=== PATIENT | male | born 1940 | race Two or more races ===

== ENCOUNTER 2025-01-17 17:44 | Inpatient (IN) | payer OTHER, MEDICAID ==
[~2025-01-17] VITALS: Ht 172.7 cm; Wt 95.9 kg
--- NOTE | 2025-01-17 18:01 | ED.PDOC ---
History of Present Illness HPI Comments This is an 84 year-old male, with a PMHX of Dementia, presents to the ED with a chief complaint of weakness as of today. Per EMS, patients called reporting weakness of patient. Patient reports he is here after trying to "answer the phone, but finding out its a remote." Patient claims he was discharged from [facility] week ago. Patient has no further complaints at this time and otherwise denies further associated symptoms of syncope, LOC, seizure, migraine, dizziness, chest pain, or N/V. Chief Complaint: Weakness Time Seen by MD: 17:50 Reviewed Notes: Electronic [employer] Camera Person Notes, Medications, Allergies Allergies: Coded Allergies: NO KNOWN ALLERGIES (Unverified , 01/17/25) Information Source: Patient, Emergency Med Personnel Mode of Arrival: EMS Severity: Moderate Timing: Hours Duration: Since onset Associated signs and symptoms Weakness Past Medical History PAST MEDICAL HISTORY: Dementia, HTN Past Medical History (Other): Pacemaker Surgical History (Other): Back and Knee Family History Family History: Reviewed,noncontributory to illness, No family hx of DM, No family hx of Heart magy, No family hx of HTN, No family hx ofKidney magy, No family hx of Liver magy, No family hx of Lung magy, No family hx of Stroke, Family hx of Cancer Social History Smoker: Non-Smoker Alcohol: Denies ETOH Use Drugs: Denies Drug Use Lives In: Home Constitutional: reports: weakness; denies: chills, diaphoresis, fatigue, fever, malaise, sweats, others EENTM: denies: blurred vision, double vision, ear bleeding, ear discharge, ear drainage, ear pain, ear ringing, eye pain, eye redness, hearing loss, mouth fela n, mouth swelling, nasal discharge, nose bleeding, nose congestion, nose pain, photophobia, tearing, throat pain, throat swelling, voice changes, others Respiratory: denies: cough, hemoptysis, orthopnea, SOB at rest, shortness of breath, SOB with excertion, stridor, wheezing, others Cardiovascular: denies: chest pain, dizzy spells, diaphoresis, Dyspnea on exertion, edema, irregular heart beat, left arm pain, lightheadedness, palpitations, PND, syncope, others Gastrointestinal: denies: abdomen distended, abdominal pain, blood streaked bowels, constipated, diarrhea, dysphagia, difficulty swallowing, hematemesis, melena, nausea, poor appetite, poor fluid intake, rectal bleeding, rectal pain, vomiting, others Genitourinary: denies: burning, dysuria, flank pain, frequency, hematuria, incontinence, penile discharge, penile sore, pain, testicle pain, testicle swelling, urgency, others Neurological: denies: dizziness, fainting, headache, left sided numbness, left sided weakness, numbness, paresthesia, pre-existing deficit, right sided numbness, right sided weakness, seizure, speech problems, tingling, tremors, weakness, others Musculoskeletal: denies: back pain, gout, joint pain, joint swelling, muscle pain, muscle stiffness, neck pain, others Integumetry: denies: bruises, change in color, change in hair/nails, dryness, laceration, lesions, lumps, rash, wounds, others Allergic/Immunocompromised: denies: Difficulty Healing, Frequent Infections, Hives, Itching, others Hematologic/Lymphatic: denies: anemia, blood clots, easy bleeding, easy bruising, swollen glands, others Endocrine: denies: excessive hunger, excessive sweating, excessive thirst, excessive urination, flushing, intolerance to cold, intolerance to heat, unexplained weight gain, unexplained weight loss, others Psychiatric: denies: anxiety, bipolar disorder, depression, hopeless, panic disorder, schizophrenia, sleepless, suicidal, others All Other Systems: Reviewed and Negative Physical Exam General Appearance: Moderate Distress HEENT: Pale Conjuntivae (L), Pale Conjuntivae (R), Pharynx Normal, TMs Normal Neck: Full Range of Motion, Non-Tender, Normal, Normal Inspection Respiratory: Chest Non-Tender, Lungs Clear, No Accessory Muscle Use, No Respiratory Distress, Normal Breath Sounds Cardiovascular: No Edema, No JVD, No Murmur, No Gallop, Normal Peripheral Pulses, Regular Rate/Rhythm Breast Exam: Deferred Gastrointestinal: No Organomegaly, Non Tender, No Pulsatile Mass, Normal Bowel Sounds, Soft Genitalia: Deferred Pelvic: Deferred Rectal: Deferred Extremities: No calf tenderness, Normal capillary refill, No pedal edema Musculoskeletal : Apperance: Normal Neurologic: senior credit officer II-XII nml as Tested, Motor Weakness, Normal Affect, No Sensory Deficits, Other (The patient is able to answer questions but he is somewhat confused) Cerebellar Function: Unable to Test Reflexes: Normal Skin: Dry, Pallor, Warm Lymphatic: No Adenopathy Was a procedure done? Was a procedure done?: No Differential Dx Considerations may include: Generalized weakness, electrolyte imbalance, dehydration, UTI X-Ray, Labs, Meds, VS Vital Signs Date Time Temp Pulse Resp B/P (MAP) Pulse Ox O2 Delivery O2 Flow Rate FiO2 01/17/25 18:35 77 17 94 Nasal Cannula* 2 28 01/17/25 18:02 98.5 95 22 114/72 95 98.5 01/17/25 17:50 61 Lab Test 01/17/25 18:07 Range/Units White Blood Count 7.5 4.4-10.8 10^3/uL Red Blood Count 3.47 L 4.5-5.90 10^6/uL Hemoglobin 11.2 L 13.5-17.5 g/dL Hematocrit 33.8 L 41.0-53.0 % Mean Corpuscular Volume 97.4 80.0-100.0 fL Mean Corpuscular Hemoglobin 32.2 H 28.0-32.0 pg Mean Corpuscular Hemoglobin Concent 33.1 32.0-36.0 g/dL Red Cell Distribution Width 14.3 11.8-14.3 % Platelet Count 170 140-450 10^3/uL Mean Platelet Volume 8.7 6.9-10.8 fL Neutrophils (%) (Auto) 52.0 37.0-80.0 % Lymphocytes (%) (Auto) 25.4 10.0-50.0 % Monocytes (%) (Auto) 11.1 0.0-12.0 % Eosinophils (%) (Auto) 11.0 H 0.0-7.0 % Basophils (%) (Auto) 0.5 0.0-2.0 % Neutrophils # (Auto) 3.9 1.6-8.6 10 ^3/uL Lymphocytes # (Auto) 1.9 0.4-5.4 10 ^3/uL Monocytes # (Auto) 0.8 0-1.3 10 ^3/uL Eosinophils # (Auto) 0.8 0-0.8 10 ^3/uL Basophils # (Auto) 0 0-0.2 10 ^3/uL Nucleated Red Blood Cells 0.1 % Sodium Level 142 136-145 mmol/L Potassium Level 4.6 3.5-5.1 mmol/L Chloride Level 104 98-107 mmol/L Carbon Dioxide Level 30 20-31 mmol/L Anion Gap 8 5-15 Blood Urea Nitrogen 36 H 9-23 mg/dL Creatinine 4.54 H 0.700-1.30 mg/dL Glomerular Filtration Rate Calc 12 >90 mL/min BUN/Creatinine Ratio 7.9 L 10.0-20.0 Serum Glucose 114 H 74-106 mg/dL Lactic Acid Level 1.4 0.4-2.0 mmol/L Calcium Level 9.2 8.7-10.4 mg/dL Troponin I High Sensitivity 8 </=54 ng/L Current Medications Medications (Trade) Dose Ordered Sig/Zeke Route Start Time Stop Time Status Last Admin Sodium Chloride 500 ml @ 500 mls/hr Q1H ONCE IVB 01/17/25 18:00 01/17/25 18:59 DC 01/17/25 18:51 CAT scan of the head is negative The chest x-ray shows: Findings/Impression: Frontal chest radiograph demonstrates no acute osseous or superficial soft tissue abnormalities. Tunneled right-sided HD catheter terminates near the superior cavoatrial junction. Left chest wall dual-chamber pacemaker. The trachea is midline. The cardiac silhouette and mediastinum are within normal limits. Small right pleural effusion with compressive atelectasis. A superimposed infectious process is not excluded. MSK No pneumothorax. The patient's CBC shows anemia with a hemoglobin of 11.2 and hematocrit of 33.8 The BUN is 36 and the creatinine is 4.54 The patient was bolused with normal saline at 500 cc bolus The patient is being admitted at this time. Images Reviewed?: Images reviewed and evaluated by me Time of 1ST Reevaluation: 18:31 Reevaluation 1ST: Unchanged Patient Education/Counseling: Diagnosis, Treatment, Prognosis Family Education/Counseling: No Family Present SEPSIS Sepsis Screen Physician Orders Urinalysis (01/17/25 17:51) Chest Portable (01/17/25 17:51) Head Without Contrast (01/17/25 17:51) Solid Die Cutter (01/17/25 17:51) Pulse Oximetry (01/17/25 17:51) Blood Pressure (01/17/25 17:51) Heplock Iv (01/17/25 17:51) Blood Culture (01/17/25 17:51) Electrocardigram (01/17/25 17:51) Vital Signs Date Time Temp Pulse Resp B/P (MAP) Pulse Ox O2 Delivery O2 Flow Rate FiO2 01/17/25 18:35 77 17 94 Nasal Cannula* 2 28 01/17/25 18:02 98.5 95 22 114/72 95 98.5 01/17/25 17:50 61 Laboratory Tests Test 01/17/25 18:07 Lactic Acid Level 1.4 mmol/L (0.4-2.0) White Blood Count 7.5 10^3/uL (4.4-10.8) Medications Medications Dose Ordered Sig/Zeke Route Start Time Stop Time Status Last Admin Dose Admin Sodium Chloride 500 ml @ 500 mls/hr Q1H ONCE IVB 01/17/25 18:00 01/17/25 18:59 DC 01/17/25 18:51 Departure 1 Departure Time of Disposition: 19:47 Impression: Primary Impression: Generalized weakness Additional Impressions: UTI (urinary tract infection) Qualified Codes: N30.00 - Acute cystitis without hematuria Autonomic dysfunction Dehydration Disposition: ADMITTED INPATIENT Admit to: Tele Condition: Fair Critical Care Note Critical Care Time?: Yes (45 min-critical care time only) Stability Stability form required: Yes Unstable for transfer: Telemetry monitoring (Telemetry monitoring required), ED Physician Assesment (Clinical assesment) Heart Score Heart Score: Heart Score Response (Comments) Value History N/A 0 EKG N/A 0 Age N/A 0 Risk Factors N/A 0 Troponin N/A 0 Total 0 I personally scribed for RAYNA SUTTON MD ([email or web address]) on 01/17/25 at 18:01. Electronically submitted by Jing Pabon ([employer]). I personally scribed for RAYNA SUTTON MD ([email or web address]) on 01/17/25 at 18:03. Electronically submitted by Jing Pabon ([employer]). I personally scribed for RAYNA SUTTON MD ([email or web address]) on 01/17/25 at 18:05. Electronically submitted by Jing Pabon ([employer]). RAYNA SUTTON MD Jan 17, 2025 18:01
[2025-01-17 18:24] LABS: Hematocrit 33.8 % (41.0-53.0); Hemoglobin 11.2 g/dL (13.5-17.5); Mean Corpuscular Hemoglobin 32.2 pg (28.0-32.0); Mean Corpuscular Volume 97.4 fL (80.0-100.0); Nucleated Red Blood Cells % 0.1 %
[2025-01-17 18:31] LABS: Chloride 104 mmol/L (98-107); Potassium 4.6 mmol/L (3.5-5.1); Sodium 142 mmol/L (136-145)
[2025-01-17 18:32] LABS: Anion Gap 8 (5-15); Calcium 9.2 mg/dL (8.7-10.4); Carbon Dioxide 30 mmol/L (20-31)
[2025-01-17 18:35] VITALS: PULSE 77; RESP 17; O2SAT 94
[2025-01-17 18:37] LABS: BUN/Creatinine Ratio 7.9 (10.0-20.0)
[2025-01-17 18:44] LABS: Blood Urea Nitrogen 36 mg/dL (9-23); Glucose 114 mg/dL (74-106)
[2025-01-17] MEDS: SODIUM CHLORIDE 0.9% 500 ML IVB ONE (18:51)
--- NOTE | 2025-01-17 19:33 | DVH ---
EXAM: XY CHEST PORTABLE TECHNIQUE: Single frontal chest radiograph CLINICAL HISTORY: aloc COMPARISON: None Findings/Impression: Frontal chest radiograph demonstrates no acute osseous or superficial soft tissue abnormalities. Tunneled right-sided HD catheter terminates near the superior cavoatrial junction. Left chest wall du al-chamber pacemaker. The trachea is midline. The cardiac silhouette and mediastinum are within normal limits. Small right pleural effusion with compressive atelectasis. A superimposed infectious process is not e xcluded. MSK No pneumothorax.
--- NOTE | 2025-01-17 19:36 | DVH ---
CT HEAD WITHOUT CONTRAST INDICATION: aloc EXAM DATE: 01/17/2025 07:04 PM COMPARISON: None RADIATION DOSE: CTDIvol: 58.8 mGy, DLP: 1059.81 mGy*cm PROCEDURE: CT scans of the head were obtained from the vertex to the skull base. Sagittal and coronal reconstructions were provided. All CT scans at this medical facility are performed using dose modulation techniques as appropriate t o a performed exam including the following: Automated exposure control was utilized; adjustment of th e MA and/or KV according to patient size; and use of iterative reconstruction technique. FINDINGS: Evaluation is degraded by motion and streak artifact. No acute territorial infarct, intracranial hemorrhage, or mass effect. There are global involutional changes with compensatory prominence of the ventricles and sulci. Patchy periventricular and subcorti hugo white matter hypoattenuation is nonspecific but may be related to small vessel ischemic disease. 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 Mucosal thickening along the floor of the right maxillary antrum. The osseous structures are unrema rkable. IMPRESSION: 1. Artifact degraded evaluation without definite evidence for acute intracranial abnormality. 2. Age-related involutional changes. Chronic microvascular changes. 3. If clinical symptoms persist, MRI may be beneficial in further evaluation.
[2025-01-17] MEDS: cefTRIAXone 1GM/50ML D5W 50 ML IV ONE (20:53)
[2025-01-17 23:21] VITALS: PULSE 60; RESP 20; O2SAT 100
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
[2025-01-18 00:23] VITALS: PULSE 82; RESP 16; O2SAT 98
[2025-01-18 00:30] LABS: COVID19 ANTIGEN SOFIA FIA NEGATIVE (NEGATIVE)
[2025-01-18] MEDS: SODIUM CHLORIDE 0.9% 500 ML IV ONE (01:56)
[2025-01-18] MEDS: PANTOPRAZOLE 40 MG TAB PO SCH (05:24)
[2025-01-18 06:31] LABS: Hematocrit 33.9 % (41.0-53.0); Hemoglobin 11.3 g/dL (13.5-17.5); Mean Corpuscular Hemoglobin 33.5 pg (28.0-32.0); Mean Corpuscular Volume 100.3 fL (80.0-100.0); Nucleated Red Blood Cells % 0.3 %
[2025-01-18 06:48] LABS: Albumin 4.0 g/dL (3.2-4.8); Alkaline Phosphatase 111 U/L (46-116); Anion Gap 10 (5-15); BUN/Creatinine Ratio 7.4 (10.0-20.0); Calcium 9.4 mg/dL (8.7-10.4); Carbon Dioxide 27 mmol/L (20-31); Chloride 105 mmol/L (98-107); Glucose 90 mg/dL (74-106); Potassium 4.2 mmol/L (3.5-5.1); Sodium 142 mmol/L (136-145); Total Protein 6.3 g/dL (5.7-8.2)
[2025-01-18 06:52] LABS: Alanine Aminotransferase < 9 U/L (7-40); Bilirubin, Total 0.2 mg/dL (0.2-1.0); Blood Urea Nitrogen 35 mg/dL (9-23)
[2025-01-18 08:00] VITALS: PULSE 59; RESP 17; O2SAT 100
--- NOTE | 2025-01-18 09:06 | DVHPNRES ---
Progress Note Date Seen: Jan 18, 2025 Resident Creating Document: PRESLEY DOZIER RESIDENT Has the PT tested + for MRSA If YES, has PT been informed?: No Medical Necessity Reason Pt with a Central, PICC or Fol: No Subjective Patient reports: No new complaints Changes from previous H/P or p: No Changes Objective vital signs Vital Sign Date Time Temp Pulse Resp B/P (MAP) Pulse Ox O2 Delivery O2 Flow Rate FiO2 01/18/25 08:00 97.7 59 17 120/56 (77) 100 97.7 01/17/25 23:21 Nasal Cannula* 2 28 Total Intake and Output 01/17/25 01/17/25 01/18/25 15:00 23:00 07:00 Intake Total 550 ml Balance 550 ml medications Current Medications Medications Dose Ordered Sig/Zeke Route Start Time Stop Time Status Last Admin Dose Admin Pantoprazole Sodium 40 mg DAILY@0600 PO 01/18/25 06:00 01/18/25 05:24 40 MG Ceftriaxone Sodium 50 ml @ 100 mls/hr DAILY@2100 IV 01/18/25 21:00 Examination General Appearance: Alert, Cooperative, mild distress HEENT: Atraumatic, PERRLA, Other (dry mucous) Respiratory: Clear to auscultation, Normal air movement, Other (Oxigen 2L for nasal cannula ) Cardiovascular: Regular rate, Normal S1, Normal S2, No murmurs Abdominal: Normal bowel sounds, Soft, No tenderness, No hepatospenomegaly, No masses Extremities: No clubbing, No cyanosis, No edema, Normal pulses, Other (Bilateral leg pitting edema) Skin: No rashes, No breakdown, No significant lesion Neuro: Normal speech, Strength at 5/5 X4 ext, Normal tone, Sensation intact, Other (Alert, oriented and person, placed but no time, cofused, Bilateral hand tremor. ) Psych/Mental Status: Mood NL, Other (Normal mood.) laboratory and microbiology Laboratory Tests 01/18/25 05:20 Test 01/18/25 05:20 Range/Units Serum Glucose 90 74-106 mg/dL Labs and/or images reviewed: Labs reviewed by me, Image(s) reviewed by me Problem List/Assessment/Plan Problem List/Assessment/Plan Mr. Josefina Neff is an 84-year-old male with a complex medical history including dementia, hypertension, bilateral total knee replacements, a pacemaker, ESRD on dialysis (Tuesdays, , Saturdays), and Parkinsons disease. He presented to the emergency department with sudden-onset weakness and confusion of unclear duration, reportedly found in this state by his client services director Eve Bah ([phone]). He was recently discharged from [facility] after a week-long admission for fluid retention. He denies any recent trauma, loss of consciousness, chest pain, shortness of breath, fever, or other systemic symptoms. Initial labs revealed a BUN/creatinine ratio of 7.9 and a creatinine level of 4.74, while a CT scan was unremarkable. He lives alone and claims to have a client services director, though this could not be verified. He has no history of alcohol or drug use and quit smoking over a decade ago after previously smoking three packs per day. PCP: Hernan #Possible Metabolic vs Toxic encephalopathy: uropathic #Ruled out CVA clinically ct -ve likely #Aspiration Pneumonia gram +ve / -ve on iv abx #R/O UTI: UA contaminated on ceftriaxone #ESRD on dialysis still has urine output: missed dialysis x2 TTS with Dr. Young's group #Mild to moderate hypothermia: IV fluids (careful water replenishment due to ESRD) HD with HD catheter #Essential Hypertension target BP 140/90 as per ACC/AHA guidelines, hold meds as HD pending. #Sick sinus disease/conduction disorder on dual lead pacemaker on tele. #Parkinsonism: signs and symptoms present with tremor and rigidity confused and aspiration prone #Constipation as needed laxatives #Vitamin D deficiency: hold for now #Hypothyroidism: start home meds when possible #BPH: restart home meds when tolerating oral diet more awake #Dyslipidemia: statin to start #osteoarthritis: as needed local lidocaine #Right ophthalmology since 6 months of age. #Possible sleep apnea, intermittent desaturation Discussed with Dr. Carter. Goals of care discussed with team and caregiver over phone for 34 min. Remains in hospital pending HD. Plan discussed with: Patient Date of Service: Jan 18, 2025 Billing Provider: ARMIN CARTER MD Common Visit Codes: [id number] INP/OBS CARE(HIGH) PRESLEY DOZIER RESIDENT Jan 18, 2025 09:06 ARMIN CARTER MD Jan 22, 2025 08:44
[2025-01-18] MEDS: AZITHROMYCIN 500MG/ 250ML 250 ML IV SCH (10:06)
[2025-01-18 17:27] LABS: Urine Protein, UAD TRACE (Negative)
[2025-01-18 19:27] VITALS: PULSE 79; RESP 15; O2SAT 97
[2025-01-18] MEDS: cefTRIAXone 1GM/50ML D5W 50 ML IV SCH (21:04)
--- NOTE | 2025-01-18 21:36 | DVHINCON2 ---
Date of service: Jan 18, 2025 Reason for Consultation esrd History of Present Illness 84 years old male with past medical history of dementia hypertension bilateral total knee replacement, ESRD on dialysis, Parkinson's disease presented with chief complaints of confusion and sudden onset weakness Patient does not know exactly when last dialysis was Seen and examined in emergency room Past Medical History per hpi Allergies: Coded Allergies: NO KNOWN ALLERGIES (Unverified , 01/17/25) Current Medications Current Medications Medications (Trade) Dose Ordered Sig/Zeke Route PRN Reason Start Time Stop Time Status Last Admin Pantoprazole Sodium (Protonix Tablet) 40 mg DAILY@0600 PO 01/18/25 06:00 01/18/25 05:24 Ceftriaxone Sodium 50 ml @ 100 mls/hr DAILY@2100 IV 01/18/25 21:00 01/18/25 21:04 Azithromycin 250 ml @ 125 mls/hr DAILY IV 01/18/25 10:00 01/18/25 10:06 Review of Systems per hpi H&P Exam Vital Signs/I&O Vital Sign Date Time Temp Pulse Resp B/P (MAP) Pulse Ox O2 Delivery O2 Flow Rate FiO2 01/18/25 19:27 79 15 97 Nasal Cannula* 2 28 01/18/25 19:27 97.7 119/75 (90) 97.7 Intake and Output 01/17/25 01/18/25 19:00 07:00 Intake Total 550 ml Balance 550 ml Intake IV Total 550 ml Physical Exam General-not in any distress HEENT-normocephalic, Respiratory-fair air entry bilateral, [id number] heard, no murmurs appreciated Abdominal-soft, nontender, nondistended Musculoskeletal-no pedal edema Genitourinary-deferred Neuro-awake alert oriented tremors ++ Psychiatric-not agitated, cooperative, Labs/Diagnostic Data Labs/Diagnostic Data Laboratory Tests Test 01/18/25 16:00 01/18/25 10:30 01/18/25 05:20 01/17/25 23:40 Range/Units Urine Color Light-yellow Yellow Urine Clarity Clear Clear Urine pH 6.0 5.0-9.0 Urine Specific [place] 1.012 1.001-1.035 Urine Protein Trace H Negative Urine Ketones Negative Negative Urine Blood Negative Negative /uL Urine Nitrite Negative Negative Urine Bilirubin Negative Negative Urine Urobilinogen Normal Negative mg/dL Urine Leukocyte Esterase Trace Negative /uL Urine RBC 1 0 - 3 /hpf Urine Microscopic WBC 7 H 0-3 /HPF Urine Squamous Epithelial Cells Few <5 /hpf Urine Bacteria Few H None Seen /hpf Urine Glucose Normal Normal mg/dL Vitamin B12 Level 379 211-911 pg/mL Folic Acid 9.15 >5.38 ng/mL White Blood Count 7.3 4.4-10.8 10^3/uL Red Blood Count 3.38 L 4.5-5.90 10^6/uL Hemoglobin 11.3 L 13.5-17.5 g/dL Hematocrit 33.9 L 41.0-53.0 % Mean Corpuscular Volume 100.3 H 80.0-100.0 fL Mean Corpuscular Hemoglobin 33.5 H 28.0-32.0 pg Mean Corpuscular Hemoglobin Concent 33.4 32.0-36.0 g/dL Red Cell Distribution Width 14.1 11.8-14.3 % Platelet Count 160 140-450 10^3/uL Mean Platelet Volume 8.8 6.9-10.8 fL Neutrophils (%) (Auto) 49.6 37.0-80.0 % Lymphocytes (%) (Auto) 29.3 10.0-50.0 % Monocytes (%) (Auto) 10.5 0.0-12.0 % Eosinophils (%) (Auto) 10.0 H 0.0-7.0 % Basophils (%) (Auto) 0.6 0.0-2.0 % Neutrophils # (Auto) 3.6 1.6-8.6 10 ^3/uL Lymphocytes # (Auto) 2.1 0.4-5.4 10 ^3/uL Monocytes # (Auto) 0.8 0-1.3 10 ^3/uL Eosinophils # (Auto) 0.7 0-0.8 10 ^3/uL Basophils # (Auto) 0 0-0.2 10 ^3/uL Nucleated Red Blood Cells 0.3 % Sodium Level 142 136-145 mmol/L Potassium Level 4.2 3.5-5.1 mmol/L Chloride Level 105 98-107 mmol/L Carbon Dioxide Level 27 20-31 mmol/L Anion Gap 10 5-15 Blood Urea Nitrogen 35 H 9-23 mg/dL Creatinine 4.75 H 0.700-1.30 mg/dL Glomerular Filtration Rate Calc 11 >90 mL/min BUN/Creatinine Ratio 7.4 L 10.0-20.0 Serum Glucose 90 74-106 mg/dL Calcium Level 9.4 8.7-10.4 mg/dL Total Bilirubin 0.2 0.2-1.0 mg/dL Aspartate Amino Transferase (AST) < 8 L 13-40 U/L Alanine Aminotransferase (ALT) < 9 7-40 U/L Alkaline Phosphatase 111 46-116 U/L Total Protein 6.3 5.7-8.2 g/dL Albumin 4.0 3.2-4.8 g/dL Thyroid Stimulating Hormone (TSH) 3.89 0.55-4.78 uIU/mL Influenza Type A Antigen Negative Negative Influenza Type B Antigen Negative Negative SARS-CoV-2 Antigen (Rapid) Negative NEGATIVE Test 01/17/25 23:07 01/17/25 18:07 Range/Units Ammonia < 10 L 11-32 umol/L White Blood Count 7.5 4.4-10.8 10^3/uL Red Blood Count 3.47 L 4.5-5.90 10^6/uL Hemoglobin 11.2 L 13.5-17.5 g/dL Hematocrit 33.8 L 41.0-53.0 % Mean Corpuscular Volume 97.4 80.0-100.0 fL Mean Corpuscular Hemoglobin 32.2 H 28.0-32.0 pg Mean Corpuscular Hemoglobin Concent 33.1 32.0-36.0 g/dL Red Cell Distribution Width 14.3 11.8-14.3 % Platelet Count 170 140-450 10^3/uL Mean Platelet Volume 8.7 6.9-10.8 fL Neutrophils (%) (Auto) 52.0 37.0-80.0 % Lymphocytes (%) (Auto) 25.4 10.0-50.0 % Monocytes (%) (Auto) 11.1 0.0-12.0 % Eosinophils (%) (Auto) 11.0 H 0.0-7.0 % Basophils (%) (Auto) 0.5 0.0-2.0 % Neutrophils # (Auto) 3.9 1.6-8.6 10 ^3/uL Lymphocytes # (Auto) 1.9 0.4-5.4 10 ^3/uL Monocytes # (Auto) 0.8 0-1.3 10 ^3/uL Eosinophils # (Auto) 0.8 0-0.8 10 ^3/uL Basophils # (Auto) 0 0-0.2 10 ^3/uL Nucleated Red Blood Cells 0.1 % Sodium Level 142 136-145 mmol/L Potassium Level 4.6 3.5-5.1 mmol/L Chloride Level 104 98-107 mmol/L Carbon Dioxide Level 30 20-31 mmol/L Anion Gap 8 5-15 Blood Urea Nitrogen 36 H 9-23 mg/dL Creatinine 4.54 H 0.700-1.30 mg/dL Glomerular Filtration Rate Calc 12 >90 mL/min BUN/Creatinine Ratio 7.9 L 10.0-20.0 Serum Glucose 114 H 74-106 mg/dL Lactic Acid Level 1.4 0.4-2.0 mmol/L Calcium Level 9.2 8.7-10.4 mg/dL Troponin I High Sensitivity 8 </=54 ng/L Assessment ESRD on HD AMS parkinsons disease recs HD tomorrow will follow Plan discussed with: Patient EDUARD WILLIAMSON MD Jan 18, 2025 21:36
[2025-01-19] VITALS (10 sets, daily range): BP systolic 102–182; BP diastolic 63–96; PULSE 71–82; RESP 16–67; TEMP 97.1–98.4; O2SAT 94–98
[2025-01-19 06:34] LABS: Hematocrit 34.0 % (41.0-53.0); Hemoglobin 11.5 g/dL (13.5-17.5); Mean Corpuscular Hemoglobin 33.1 pg (28.0-32.0); Mean Corpuscular Volume 97.7 fL (80.0-100.0); Nucleated Red Blood Cells % 0.0 %
[2025-01-19 06:45] LABS: Anion Gap 10 (5-15); Carbon Dioxide 28 mmol/L (20-31); Chloride 105 mmol/L (98-107); Potassium 4.5 mmol/L (3.5-5.1); Sodium 143 mmol/L (136-145)
[2025-01-19 06:46] LABS: Calcium 9.7 mg/dL (8.7-10.4)
[2025-01-19 06:51] LABS: BUN/Creatinine Ratio 8.5 (10.0-20.0); Blood Urea Nitrogen 45 mg/dL (9-23); Glucose 92 mg/dL (74-106)
[2025-01-19] MEDS ORDERED: SODIUM CHL 0.9% 1000 ML BAG XX ONE (07:00)
--- NOTE | 2025-01-19 15:40 | DVHPN2 ---
Progress Note Date Seen: Jan 19, 2025 Has the PT tested + for MRSA If YES, has PT been informed?: No Medical Necessity Reason Pt with a Central, PICC or Fol: No Subjective Review of Systems Pt resting in bed Patient reports: No new complaints Objective vital signs Vital Sign Date Time Temp Pulse Resp B/P (MAP) Pulse Ox O2 Delivery O2 Flow Rate FiO2 01/19/25 13:00 98.2 72 16 167/79 (108) 97 98.2 01/18/25 19:27 Nasal Cannula* 2 28 Total Intake and Output 01/18/25 01/18/25 01/19/25 15:00 23:00 07:00 Intake Total 250 ml 300 ml Balance 250 ml 300 ml medications Current Medications Medications Dose Ordered Sig/Zeke Route Start Time Stop Time Status Last Admin Dose Admin Pantoprazole Sodium 40 mg DAILY@0600 PO 01/18/25 06:00 01/19/25 05:29 40 MG Ceftriaxone Sodium 50 ml @ 100 mls/hr DAILY@2100 IV 01/18/25 21:00 01/18/25 21:04 100 MLS/HR Azithromycin 250 ml @ 125 mls/hr DAILY IV 01/18/25 10:00 01/19/25 10:52 125 MLS/HR Examination Gen: NAD Lungs: CTA, bilateral air entry Heart: RRR, normal S1 and S2 laboratory and microbiology Laboratory Tests 01/19/25 05:45 Test 01/19/25 05:45 Range/Units Serum Glucose 92 74-106 mg/dL Microbiology Date/Time Source Procedure Growth Status 01/19/25 02:00 Nose MRSA Screen - Final Complete 01/18/25 10:38 Blood Blood Culture - Preliminary NO GROWTH AFTER 24 HOURS OF INCUBATION. Resulted Labs and/or images reviewed: Labs reviewed by me Problem List/Assessment/Plan Problem List/Assessment/Plan IMP ESRD on HD AMS Parkinsons disease REC HD tomorrow Strict I&Os Chemistry panel Blood pressure control We will continue to follow Case discussed with Dr. Saleem Young Plan discussed with: Patient EAGLE CUMMINGS ANASTACIO Jan 19, 2025 15:40
--- NOTE | 2025-01-19 16:25 | DVHPNRES ---
Progress Note Date Seen: Jan 19, 2025 Resident Creating Document: PRESLEY DOZIER RESIDENT Has the PT tested + for MRSA If YES, has PT been informed?: No Medical Necessity Reason Pt with a Central, PICC or Fol: No Subjective Patient reports: No new complaints, Feels better Changes from previous H/P or p: No Changes Objective vital signs Vital Sign Date Time Temp Pulse Resp B/P (MAP) Pulse Ox O2 Delivery O2 Flow Rate FiO2 01/19/25 13:00 98.2 72 16 167/79 (108) 97 98.2 01/18/25 19:27 Nasal Cannula* 2 28 Total Intake and Output 01/18/25 01/18/25 01/19/25 15:00 23:00 07:00 Intake Total 250 ml 300 ml Balance 250 ml 300 ml medications Current Medications Medications Dose Ordered Sig/Zeke Route Start Time Stop Time Status Last Admin Dose Admin Pantoprazole Sodium 40 mg DAILY@0600 PO 01/18/25 06:00 01/19/25 05:29 40 MG Ceftriaxone Sodium 50 ml @ 100 mls/hr DAILY@2100 IV 01/18/25 21:00 01/18/25 21:04 100 MLS/HR Azithromycin 250 ml @ 125 mls/hr DAILY IV 01/18/25 10:00 01/19/25 10:52 125 MLS/HR Examination General Appearance: Alert, Cooperative, oriented to person and place at nighttime still confused HEENT: Atraumatic, PERRLA, Other (dry mucous) Right neck pain, chronic Respiratory: Clear to auscultation, Normal air movement, Other (Oxygen 2L/min for nasal cannula ) Cardiovascular: Regular rate, Normal S1, Normal S2, No murmurs Abdominal: Normal bowel sounds, Soft, No tenderness, No hepatosplenomegaly, No masses Extremities: No clubbing, No cyanosis, No edema, Normal pulses, Other (Bilateral leg pitting edema) Skin: No rashes, No breakdown, No significant lesion Neuro: Normal speech, Strength at 5/5 X4 ext, Normal tone, Sensation intact, Bilateral hand tremor worsened Psych/Mental Status: Confused laboratory and microbiology Laboratory Tests 01/19/25 05:45 Test 01/19/25 05:45 Range/Units Serum Glucose 92 74-106 mg/dL Microbiology Date/Time Source Procedure Growth Status 01/19/25 02:00 Nose MRSA Screen - Final Complete 01/18/25 10:38 Blood Blood Culture - Preliminary NO GROWTH AFTER 24 HOURS OF INCUBATION. Resulted Labs and/or images reviewed: Labs reviewed by me, Image(s) reviewed by me Problem List/Assessment/Plan Problem List/Assessment/Plan Mr. Josefina Neff is an 84-year-old male with a complex medical history including dementia, hypertension, bilateral total knee replacements, a pacemaker, ESRD on dialysis (Tuesdays, , Saturdays), and Parkinsons disease. He presented to the emergency department with sudden-onset weakness and confusion of unclear duration, reportedly found in this state by his school office assistant Eve Bah ([phone]). He was recently discharged from [facility] after a week-long admission for fluid retention. He denies any recent trauma, loss of consciousness, chest pain, shortness of breath, fever, or other systemic symptoms. Initial labs revealed a BUN/creatinine ratio of 7.9 and a creatinine level of 4.74, while a CT scan was unremarkable. He lives alone and claims to have a school office assistant, though this could not be verified. He has no history of alcohol or drug use and quit smoking over a decade ago after previously smoking three packs per day. PCP: Hernan #Right neck and lower back pain, mild lower back tenderness; no signs of neck rigidity, restarted home pain medications #previous history of pressure ulcer status post successful treatment, pressure ulcer precautions #Possible Metabolic vs Toxic encephalopathy: uropathic, missed dialysis, infection as well could be contributory. #Ruled out CVA clinically ct -ve likely #Aspiration Pneumonia gram +ve / -ve on iv abx #chronic hypoxic respiratory failure, at home 2-3 L of nasal cannula oxygen #R/O UTI: UA contaminated on ceftriaxone #ESRD on dialysis still has urine output: missed dialysis x2 TTS with Dr. Young's group #Mild to moderate hypothermia: IV fluids (careful water replenishment due to ESRD) HD with HD tunneled catheter, patient has right arm fistula recently operated within past month #Essential Hypertension target BP 140/90 as per ACC/AHA guidelines, hold meds as HD pending. #Sick sinus disease/conduction disorder on dual lead pacemaker on tele. #Parkinsonism: signs and symptoms present with tremor and rigidity confused and aspiration prone, please restart home medications post dialysis. #Constipation as needed laxatives #Vitamin D deficiency: hold for now #Hypothyroidism: start home meds when possible #BPH: restart home meds when tolerating oral diet more awake #Dyslipidemia: statin to start #osteoarthritis: as needed local lidocaine #Right ophthalmology since 6 months of age. #Possible sleep apnea, intermittent desaturation #? neck mass status post radiation at [place], limited history # chronic low back pain # grade 1 obesity 33.3 BMI Goals of care discussed with the caregiver over phone for 20 mins; full code. Remains in hospital; pending HD discussed at bedside with the nephrology team and RN. Patient is full code confirmed with caregiver Gely, who has been caregiver for past 7 years and sees the patient 5 days a week. Next of kin caregiver, closest family member son Guillermo who lives out of state. They have advanced directives at home, I requested to bring it to the hospital for further evaluation. Bedside detailed discussion with caregiver Gely, previous medical history, and further detailed discussion revealed that patient is closely followed up by the caregiver and the family is on board. At this point, based on the presented evidences and patient's cooperation unlikely any underlying elderly abuse or exploitation noted. Discussed with Dr. Rodrigues. Plan discussed with: Patient, Other (Caregiver Gely) My Orders My Orders Orders - PRESLEY DOZIER RESIDENT Procedure Category Date Status Time Cardiac DIET 01/19/25 Transmitted Diet-2gna,Lofat,Lochol Breakfast Addendum Addendum Addendum I was physically present for the zimmer portions of the service provided to patient by THE RESIDENT. I have reviewed the documentation, discussed the case with resident and agree with the resident's documentation except as noted. Also the patient's clinical case was discussed with the patient's nurse. This medical document was created using an electronic medical record system with computerized dictation system. Although this document has been carefully reviewed, there might still be some phonetic and typographical errors. These areas are purely typographical due to imperfections of the software programs, and do not reflect any compromise in the patient's medical care. Late signature. Date of Service: Jan 19, 2025 Billing Provider: SHALOM RODRIGUES MD Common Visit Codes: [id number] INP/OBS CARE(HIGH) Secondary Visit Codes: [id number] CARE PLAN 30 MINUTES (20 minutes) PRESLEY DOZIER RESIDENT Jan 19, 2025 16:25 SHALOM RODRIGUES MD Jan 21, 2025 05:50
[2025-01-19] MEDS: HYDROcodone-ACET 10/325MG TAB PO PRN (21:57)
[2025-01-20] VITALS (8 sets, daily range): BP systolic 111–173; BP diastolic 53–92; PULSE 67–80; RESP 17–19; TEMP 97.7–98.4; O2SAT 96–98
[2025-01-20 07:39] LABS: Anion Gap 13 (5-15); Carbon Dioxide 24 mmol/L (20-31); Chloride 104 mmol/L (98-107); Potassium 4.3 mmol/L (3.5-5.1); Sodium 141 mmol/L (136-145)
[2025-01-20 07:41] LABS: Calcium 9.0 mg/dL (8.7-10.4)
[2025-01-20 07:45] LABS: BUN/Creatinine Ratio 7.6 (10.0-20.0); Glucose 84 mg/dL (74-106)
[2025-01-20 07:49] LABS: Blood Urea Nitrogen 45 mg/dL (9-23)
--- NOTE | 2025-01-20 14:43 | DVHPN2 ---
Progress Note Date Seen: Jan 20, 2025 Has the PT tested + for MRSA If YES, has PT been informed?: No Medical Necessity Reason Pt with a Central, PICC or Fol: No Subjective Patient reports: No new complaints, Feels better Objective vital signs Vital Sign Date Time Temp Pulse Resp B/P (MAP) Pulse Ox O2 Delivery O2 Flow Rate FiO2 01/20/25 13:00 97.7 67 18 116/61 (79) 97 97.7 01/19/25 20:00 Nasal Cannula* 2 28 Total Intake and Output 01/19/25 01/19/25 01/20/25 14:59 22:59 06:59 Intake Total 250 ml 700 ml 300 ml Output Total 500 ml Balance 250 ml 700 ml -200 ml medications Current Medications Medications Dose Ordered Sig/Zeke Route Start Time Stop Time Status Last Admin Dose Admin Pantoprazole Sodium 40 mg DAILY@0600 PO 01/18/25 06:00 01/20/25 06:35 40 MG Ceftriaxone Sodium 50 ml @ 100 mls/hr DAILY@2100 IV 01/18/25 21:00 01/18/25 21:04 100 MLS/HR Azithromycin 250 ml @ 125 mls/hr DAILY IV 01/18/25 10:00 01/20/25 10:26 125 MLS/HR Acetaminophen/ Hydrocodone Bitart 1 tab Q4HP PRN PO 01/19/25 18:15 01/20/25 10:25 1 TAB Hydralazine HCl 10 mg Q6HP PRN PO 01/19/25 21:15 Erythromycin 1 applic Q4HR OP 01/20/25 14:00 Examination Gen: NAD Lungs: CTA, bilateral air entry Heart: RRR, normal S1 and S2 Abd: soft, nontender, nondistended, normoactive bowel sounds Ext: No edema Neuro: A&O x2 laboratory and microbiology Laboratory Tests 01/20/25 06:53 01/19/25 05:45 Test 01/20/25 06:53 Range/Units Serum Glucose 84 74-106 mg/dL Microbiology Date/Time Source Procedure Growth Status 01/19/25 02:00 Nose MRSA Screen - Final Complete 01/18/25 16:00 Voided Urine Urine Culture - Final Complete 01/18/25 10:38 Blood Blood Culture - Preliminary NO GROWTH AFTER 48 HOURS OF INCUBATION. Resulted Labs and/or images reviewed: Labs reviewed by me Problem List/Assessment/Plan Problem List/Assessment/Plan IMP ESRD on HD AMS Parkinsons disease REC HD today Strict I&Os Chemistry panel in am Blood pressure control We will continue to follow Case discussed with Dr. Saleem Young Plan discussed with: Patient, Other EAGLE CUMMINGS Jan 20, 2025 14:43
--- NOTE | 2025-01-20 17:05 | DVHPNRES ---
Progress Note Date Seen: Jan 20, 2025 Resident Creating Document: LEIGH ORNELAS RESIDENT Has the PT tested + for MRSA If YES, has PT been informed?: No Medical Necessity Reason Pt with a Central, PICC or Fol: No Subjective Review of Systems Josefina Neff is an 84 year-old male, with a past medical history of Dementia, HTN, pacemaker, CKD stage 5 (Dialysis TTS) and parkinson's disease, presented to the ER with a chief complaint of sudden weakness and confusion of underdetermined duration. The patient reported that his finish sander found him confused at home reason that prompt his visit to the ED. He reported he was discharge from [facility] last week, he was admitted for about 1 week due to fluid retention. He undergoes. Dialysis 3 times a week, reported missing past 3 dialysis sessions. He denies loss of consciousness, headache, head trauma, chest pain, SOB, fever, chills, cough, abdominal pain, dysuria or motor deficits or other symptoms. In the ED initial labs show BUN/Crea 7.[address] scan is negative. PMHx: Dementia, HTN, pacemaker, CKD stage 5 (Dialysis TTS) and Parkinson's disease PSHx: Total knee replacement bilateral Social history: Smoking 3 pack per day, he quit > 10 years ago ROS: Constitutional: Denies weight loss, fever and chills. HEENT: Denies changes in vision and hearing. Right artificial eye Respiratory: Denies shortness of breath and cough Cardiovascular: Denies chest discomfort or palpitations GI: Denies abdominal pain, nausea, vomiting and diarrhea. : Denies dysuria and urinary frequency. Musculoskeletal: Denies myalgias and joint pain Skin: Denies rash and pruritus. Neurological: Confusion, on admission He was examined at bedside today. He reports feeling better today. Neck pain has resolved. He is oriented x3. Could not undergo dialysis yesterday, scheduled for dialysis today. We will continue monitoring and managing Objective vital signs Vital Sign Date Time Temp Pulse Resp B/P (MAP) Pulse Ox O2 Delivery O2 Flow Rate FiO2 01/20/25 16:42 98.1 68 17 111/64 (80) 98 98.1 01/19/25 20:00 Nasal Cannula* 2 28 Total Intake and Output 01/19/25 01/19/25 01/20/25 15:00 23:00 07:00 Intake Total 250 ml 700 ml 300 ml Output Total 500 ml Balance 250 ml 700 ml -200 ml medications Current Medications Medications Dose Ordered Sig/Zeke Route Start Time Stop Time Status Last Admin Dose Admin Pantoprazole Sodium 40 mg DAILY@0600 PO 01/18/25 06:00 01/20/25 06:35 40 MG Ceftriaxone Sodium 50 ml @ 100 mls/hr DAILY@2100 IV 01/18/25 21:00 01/18/25 21:04 100 MLS/HR Azithromycin 250 ml @ 125 mls/hr DAILY IV 01/18/25 10:00 01/20/25 10:26 125 MLS/HR Acetaminophen/ Hydrocodone Bitart 1 tab Q4HP PRN PO 01/19/25 18:15 01/20/25 10:25 1 TAB Hydralazine HCl 10 mg Q6HP PRN PO 01/19/25 21:15 Erythromycin 1 applic Q4HR OP 01/20/25 14:00 Examination General: Patient alert and oriented in person, place and time. Patient following commands. HEENT: Normocephalic, atraumatic, moist mucous membranes. Right artificial eye Respiratory/pulmonary: Clear lungs bilaterally, vesicular murmurs present in almost all lung aranda, no associated crackles or wheezes. Right chest hemodialysis catheter Cardiovascular: Distant heart sounds; pacemaker in place Abdomen: Abdomen nondistended, there is no pain to palpation in any of the abdominal quadrants, no palpable masses. Extremities: There is no peripheral edema present at the lower extremities. Skin: No rashes or pruritus, there is no sacral edema present at this time. Neurological: Intact cranial nerves with no focal neurologic deficits laboratory and microbiology Laboratory Tests 01/20/25 06:53 01/19/25 05:45 Test 01/20/25 06:53 Range/Units Serum Glucose 84 74-106 mg/dL Microbiology Date/Time Source Procedure Growth Status 01/19/25 02:00 Nose MRSA Screen - Final Complete 01/18/25 16:00 Voided Urine Urine Culture - Final Complete 01/18/25 10:38 Blood Blood Culture - Preliminary NO GROWTH AFTER 48 HOURS OF INCUBATION. Resulted Labs and/or images reviewed: Labs reviewed by me, Image(s) reviewed by me Problem List/Assessment/Plan Problem List/Assessment/Plan Previous history of pressure ulcer status post successful treatment, pressure ulcer precautions Possible Metabolic vs Toxic encephalopathy: uropathic, missed dialysis, infection as well could be contributory. Ruled out CVA clinically ct -ve likely Aspiration Pneumonia gram +ve / -ve on iv abx Chronic hypoxic respiratory failure at home 2-3 L of nasal cannula oxygen Continue IV azithromycin, ceftriaxone R/O UTI UA contaminated on ceftriaxone ESRD on dialysis Still has urine output: missed dialysis x2 TTS with Dr. Young's group Dialysis today Mild to moderate hypothermia IV fluids (careful water replenishment due to ESRD) HD with HD tunneled catheter, patient has right arm fistula recently operated within past month Essential Hypertension Target BP 140/90 as per ACC/AHA guidelines, hold meds as HD pending. 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 Parkinsonism Signs and symptoms present with tremor and rigidity confused and aspiration prone, Restart home medications post dialysis. Constipation as needed laxatives History of Vitamin D deficiency Hypothyroidism start home meds when possible BPH Restart home meds when tolerating oral diet more awake Dyslipidemia Continue statins History of Osteoarthritis As needed local lidocaine Possible sleep apnea Intermittent desaturation Neck mass status post radiation at [place], limited history Right neck and lower back pain, mild lower back tenderness no signs of neck rigidity, continue home pain medications Chronic low back pain Grade 1 obesity 33.3 BMI Case discussed with Dr. Rodrigues. Plan discussed with: Patient, Other (Nurse) Addendum Addendum Addendum I was physically present for the zimmer portions of the service provided to patient by THE RESIDENT. I have reviewed the documentation, discussed the case with resident and agree with the resident's documentation except as noted. Also the patient's clinical case was discussed with the patient's nurse. This medical document was created using an electronic medical record system with computerized dictation system. Although this document has been carefully reviewed, there might still be some phonetic and typographical errors. These areas are purely typographical due to imperfections of the software programs, and do not reflect any compromise in the patient's medical care. Late signature. Date of Service: Jan 20, 2025 Billing Provider: SHALOM RODRIGUES MD Common Visit Codes: [id number] INP/OBS CARE(HIGH) LEIGH ORNELAS RESIDENT Jan 20, 2025 17:05 SHALOM RODRIGUES MD Jan 21, 2025 05:50
[2025-01-20 21:48] LABS: Hematocrit 35.4 % (41.0-53.0); Hemoglobin 11.8 g/dL (13.5-17.5)
[2025-01-20] MEDS: EPOETIN ALFA-EPBX 4,000 UNIT/ML VIAL SC ONE (22:00)
[2025-01-20] MEDS: ERYTHROMY OPTH OINT 5mg/gm 1gm or 3.5gm tube OP SCH (22:00)
[2025-01-21] VITALS (7 sets, daily range): BP systolic 130–164; BP diastolic 66–87; PULSE 71–83; RESP 16–18; TEMP 37.1; O2SAT 96–98
[2025-01-21] MEDS: ENOXAPARIN SOD 60 MG/0.6 ML SYRINGE SC SCH (10:00)
[2025-01-21] MEDS ORDERED: AZIT500T66 PO (13:37)
[2025-01-21] MEDS ORDERED: AUG875T PO (13:37)
--- NOTE | 2025-01-21 13:49 | DVHDSRES ---
Discharge Summary Date of Admission Resident Creating Document: RAJI SERNA RESDIENT Jan 17, 2025 at 22:49 Date of Discharge: Jan 21, 2025 Labs/Diagnostic Data: Laboratory Results Test 01/20/25 21:23 01/20/25 06:53 01/19/25 05:45 01/18/25 16:00 Hemoglobin 11.8 g/dL (13.5-17.5) Hematocrit 35.4 % (41.0-53.0) Sodium Level 141 mmol/L (136-145) Potassium Level 4.3 mmol/L (3.5-5.1) Chloride Level 104 mmol/L (98-107) Carbon Dioxide Level 24 mmol/L (20-31) Anion Gap 13 (5-15) Blood Urea Nitrogen 45 mg/dL (9-23) Creatinine 5.90 mg/dL (0.700-1.30) Glomerular Filtration Rate Calc 9 mL/min (>90) BUN/Creatinine Ratio 7.6 (10.0-20.0) Serum Glucose 84 mg/dL (74-106) Calcium Level 9.0 mg/dL (8.7-10.4) White Blood Count 9.6 10^3/uL (4.4-10.8) Red Blood Count 3.48 10^6/uL (4.5-5.90) Mean Corpuscular Volume 97.7 fL (80.0-100.0) Mean Corpuscular Hemoglobin 33.1 pg (28.0-32.0) Mean Corpuscular Hemoglobin Concent 33.9 g/dL (32.0-36.0) Red Cell Distribution Width 14.1 % (11.8-14.3) Platelet Count 175 10^3/uL (140-450) Mean Platelet Volume 8.6 fL (6.9-10.8) Neutrophils (%) (Auto) 60.9 % (37.0-80.0) Lymphocytes (%) (Auto) 22.7 % (10.0-50.0) Monocytes (%) (Auto) 8.6 % (0.0-12.0) Eosinophils (%) (Auto) 7.2 % (0.0-7.0) Basophils (%) (Auto) 0.6 % (0.0-2.0) Neutrophils # (Auto) 5.9 10 ^3/uL (1.6-8.6) Lymphocytes # (Auto) 2.2 10 ^3/uL (0.4-5.4) Monocytes # (Auto) 0.8 10 ^3/uL (0-1.3) Eosinophils # (Auto) 0.7 10 ^3/uL (0-0.8) Basophils # (Auto) 0.1 10 ^3/uL (0-0.2) Nucleated Red Blood Cells 0.0 % Urine Color Light-yellow (Yellow) Urine Clarity Clear (Clear) Urine pH 6.0 (5.0-9.0) Urine Specific [place] 1.012 (1.001-1.035) Urine Protein Trace (Negative) Urine Ketones Negative (Negative) Urine Blood Negative /uL (Negative) Urine Nitrite Negative (Negative) Urine Bilirubin Negative (Negative) Urine Urobilinogen Normal mg/dL (Negative) Urine Leukocyte Esterase Trace /uL (Negative) Urine RBC 1 /hpf (0 - 3) Urine Microscopic WBC 7 /HPF (0-3) Urine Squamous Epithelial Cells Few /hpf (<5) Urine Bacteria Few /hpf (None Seen) Urine Glucose Normal mg/dL (Normal) Test 01/18/25 10:30 01/18/25 05:20 01/17/25 23:40 01/17/25 23:07 Vitamin B12 Level 379 pg/mL (211-911) Folic Acid 9.15 ng/mL (>5.38) Total Bilirubin 0.2 mg/dL (0.2-1.0) Aspartate Amino Transferase (AST) < 8 U/L (13-40) Alanine Aminotransferase (ALT) < 9 U/L (7-40) Alkaline Phosphatase 111 U/L (46-116) Total Protein 6.3 g/dL (5.7-8.2) Albumin 4.0 g/dL (3.2-4.8) Thyroid Stimulating Hormone (TSH) 3.89 uIU/mL (0.55-4.78) Influenza Type A Antigen Negative (Negative) Influenza Type B Antigen Negative (Negative) SARS-CoV-2 Antigen (Rapid) Negative (NEGATIVE) Ammonia < 10 umol/L (11-32) Test 01/17/25 18:07 Lactic Acid Level 1.4 mmol/L (0.4-2.0) Troponin I High Sensitivity 8 ng/L (</=54) Other Laboratory Tests 01/20/25 21:23 01/20/25 06:53 01/19/25 05:45 Brief Hx & Hospital Course: HISTORY OF PRESENT ILLNESS: Mr. Josefina Neff is an 84-year-old male with a complex medical history including dementia, hypertension, bilateral total knee replacements, a pacemaker, ESRD on dialysis (Tuesdays, , Saturdays), and Parkinsons disease. He presented to the emergency department with sudden-onset weakness and confusion of unclear duration, reportedly found in this state by his die set up worker Eve Bah ([phone]). He was recently discharged from [facility] after a week-long admission for fluid retention. He denies any recent trauma, loss of consciousness, chest pain, shortness of breath, fever, or other systemic symptoms. Initial labs revealed a BUN/creatinine ratio of 7.9 and a creatinine level of 4.74, while a CT scan was unremarkable. He lives alone and claims to have a die set up worker, though this could not be verified. He has no history of alcohol or drug use and quit smoking over a decade ago after previously smoking three packs per day. PCP: [facility] COURSE: Patient was admitted at the line of acute metabolic encephalopathy, likely due to uremia and pneumonia. Head CT scan shows no acute intracranial abnormalities. Chest x-ray was showing right lower zone infiltration. The patient was started on empiric antibiotic of azithromycin Rocephin. Nephrology was consulted for dialysis. During hospital admission, blood pressure was controlled foot hydralazine p.r.n. and Protonix were given. On 01/22/2024, the patient was feeling better since admission. The patient was alert and oriented. Discharge plan discussed with the patient and the patient discharged home. Physical exam on the day of discharge: General Appearance: Alert, Oriented X3, Cooperative, No acute distress HEENT: Atraumatic, PERRLA, EOMI, Mucous membrane moist/pink. Right artificial eye Respiratory: Clear to auscultation, Normal air movement. Right chest hemodialysis catheter Cardiovascular: Regular rate, Normal S1, Normal S2, No murmurs, no chest wall tenderness Abdominal: Normal bowel sounds, Soft, No tenderness, No hepatosplenomegaly, No masses Extremities: No clubbing, No cyanosis, No edema, Normal pulses, No tenderness/swelling Skin: No rashes, No breakdown, No significant lesion Neuro: Normal gait, Normal speech, Strength at 5/5 X4 ext, Normal tone, Sensation intact, Cranial nerves 3-12 NL, Reflexes 2+ Psych/Mental Status: Mental status NL, Mood NL DISCHARGE PLAN: Follow up with the PCP within 1 week of discharge. 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 Rodrigues Consults/Reason for consult Nephrology for ESRD Condition at Discharge: Poor Final Diagnosis/Problems List Uremic encephalopathy Discharge Disposition: Home Discharge Instruct/Medications Diet: Renal Activity: No Restrictions, As Tolerated Follow Up/Referral: Follow up with the PCP within 1 week after discharge. Follow up with the hemodialysis. Medications: Augmentin 875 mg twice daily for 5 days Azithromycin 500 mg daily for 5 days Continue home meds Scheduled Amoxicillin & Pot Clavulanate (Augmentin Tablet), 875 MG PO BID Azithromycin (Azithromycin), 500 MG PO DAILY Discharge Statement: "Patient was advised to return to the ER or call 911 if any headaches, dizziness, shortness of breath, chest pain, abdominal pain, bleeding, fevers, or worsening of medical condition. Patient was counseled about treatment plan, medications, possible side effects, patientverbalized understanding. All questions were answered to the best of my ability. This discharge took greater then 30 minutes in planning, reviewing documentation, counseling the patient, and discussing with other team members." ASSESSMENT ASSESSMENT Assessment Uremic encephalopathy Addendum Addendum Addendum I was physically present for the zimmer portions of the service provided to patient by THE RESIDENT. I have reviewed the documentation, discussed the case with resident and agree with the resident's documentation except as noted. Also the patient's clinical case was discussed with the patient's nurse. This medical document was created using an electronic medical record system with computerized dictation system. Although this document has been carefully reviewed, there might still be some phonetic and typographical errors. These areas are purely typographical due to imperfections of the software programs, and do not reflect any compromise in the patient's medical care. Late signature. Date of Service: Jan 21, 2025 Billing Provider: SHALOM RODRIGUES MD Common Visit Codes: 03513-EJE/OBS DISCH DAY >30min RAJI ESRNA RESDIENT Jan 21, 2025 13:49 SHALOM RODRIGUES MD Jan 22, 2025 09:44
--- NOTE | 2025-01-21 14:53 | DVHPN2 ---
Progress Note Date Seen: Jan 21, 2025 Has the PT tested + for MRSA If YES, has PT been informed?: No Medical Necessity Reason Pt with a Central, PICC or Fol: No Subjective Review of Systems Pt states he will be discharged today Patient reports: No new complaints, Feels better Objective vital signs Vital Sign Date Time Temp Pulse Resp B/P (MAP) Pulse Ox O2 Delivery O2 Flow Rate FiO2 01/21/25 13:00 97.8 71 18 130/76 (94) 97 97.8 01/21/25 08:00 Nasal Cannula* 3 32 Total Intake and Output 01/20/25 01/20/25 01/21/25 15:00 23:00 07:00 Intake Total 250 ml 525 ml 300 ml Output Total 425 ml 250 ml Balance 250 ml 100 ml 50 ml medications Current Medications Medications Dose Ordered Sig/Zeke Route Start Time Stop Time Status Last Admin Dose Admin Pantoprazole Sodium 40 mg DAILY@0600 PO 01/18/25 06:00 01/21/25 05:53 40 MG Ceftriaxone Sodium 50 ml @ 100 mls/hr DAILY@2100 IV 01/18/25 21:00 01/20/25 20:54 100 MLS/HR Azithromycin 250 ml @ 125 mls/hr DAILY IV 01/18/25 10:00 01/20/25 10:26 125 MLS/HR Acetaminophen/ Hydrocodone Bitart 1 tab Q4HP PRN PO 01/19/25 18:15 01/21/25 05:59 1 TAB Hydralazine HCl 10 mg Q6HP PRN PO 01/19/25 21:15 Erythromycin 1 applic Q4HR OP 01/20/25 14:00 Enoxaparin Sodium 50 mg DAILY SC 01/21/25 10:00 Hold Examination Gen: NAD Lungs: CTA, bilateral air entry Heart: RRR, normal S1 and S2 Abd: soft, nontender, nondistended, normoactive bowel sounds Ext: No edema Neuro: A&O x2 laboratory and microbiology Laboratory Tests 01/20/25 21:23 01/20/25 06:53 01/19/25 05:45 Test 01/20/25 06:53 Range/Units Serum Glucose 84 74-106 mg/dL Microbiology Date/Time Source Procedure Growth Status 01/19/25 02:00 Nose MRSA Screen - Final Complete 01/18/25 16:00 Voided Urine Urine Culture - Final Complete 01/18/25 10:38 Blood Blood Culture - Preliminary NO GROWTH AFTER 72 HOURS OF INCUBATION. Resulted Labs and/or images reviewed: Labs reviewed by me Problem List/Assessment/Plan Problem List/Assessment/Plan IMP ESRD on HD- last HD 01/20 AMS Parkinsons disease REC Follow up in outpt HD on scheduled dialysis chairtime Strict I&Os Blood pressure control Plan discussed with: Patient Dietary Evaluation Review Comments: 1) Initiate Nepro CarbSteady qd 2) Encourage optimal PO intake 3) Follow-up with nephrology, cardiology, and neurology 4) Continue to monitor I&O, labs, and skin integrity Expected Outcomes/Goals: 1) appetite and labs to improve 2) f/u in 3-5 days EAGLE CUMMINGSP Jan 21, 2025 14:53
--- NOTE | 2025-01-22 08:49 | ECG ---
[facility] Test Date: 2025-01-17 Test Time: 17:50:03 Pat Name: WILLIAM DIAZ Department: ED Room: 0248 A Gender: M Rural Sociologist: JOHN : 1940 Requested By: RAYNA SUTTON Order Number: [id number] Reading MD: Petr Brown Measurements Intervals [place] Rate: 61 P: -37 GA: 199 QRS: -2 QRSD: 93 T: 52 QT: 425 QTc: 428 Interpretive Statements Sinus rhythm Anterior infarct, old Electronically Signed On 01-22-2025 21:55:02 PDT by Petr Brown Please click the below link to view image of tracing.
== END 2025-01-21 18:40 | disposition home or self-care (01) | DRG 177 ==
LOC: ER 17:44 → EDBD 17:44 → OVERFLOW 22:49 → EAST 01-18 21:36
PROVIDERS: ADMIT Internal Medicine; ATTEND Internal Medicine
PROC: 5A1D70Z Performance of Urinary Filtration, Intermittent, Less than 6 Hours Per Day (ICD-10-PCS; principal; 2025-01-20)
DX: J15.69 Pneumonia due to other Gram-negative bacteria (principal); G93.41 Metabolic encephalopathy; N18.6 End stage renal disease; J96.11 Chronic respiratory failure with hypoxia; I12.0 Hypertensive chronic kidney disease with stage 5 chronic kidney disease or end stage renal disease; N30.00 Acute cystitis without hematuria; J69.0 Pneumonitis due to inhalation of food and vomit; E86.0 Dehydration; I10 Essential (primary) hypertension; Z68.33 Body mass index [BMI] 33.0-33.9, adult; G20.A1 Parkinson's disease without dyskinesia, without mention of fluctuations; E03.9 Hypothyroidism, unspecified; E78.5 Hyperlipidemia, unspecified; G47.30 Sleep apnea, unspecified; N40.0 Benign prostatic hyperplasia without lower urinary tract symptoms; K59.00 Constipation, unspecified; I49.5 Sick sinus syndrome; F02.80 Dementia in other diseases classified elsewhere, unspecified severity, without behavioral disturbance, psychotic disturbance, mood disturbance, and anxiety; Z20.822 Contact with and (suspected) exposure to COVID-19; J15.9 Unspecified bacterial pneumonia; E66.9 Obesity, unspecified; G89.29 Other chronic pain; M54.50 Low back pain, unspecified; Z96.653 Presence of artificial knee joint, bilateral; Z99.2 Dependence on renal dialysis
CPT/HCPCS: 36415; 70450; 71045; 80048; 80053; 81001; 82140; 82607; 82746; 83605; 84443; 84484; 85014; 85018; 85025; 87040; 87081; 87086; 87426; 87804; 93005; 96365; G0378

== ENCOUNTER 2025-01-23 13:22 | Inpatient (IN) | payer OTHER, MEDICAID ==
[~2025-01-23] VITALS: Ht 177.8 cm; Wt 104.4 kg
[~2025-01-23 13:22] MED LIST: AUG875T PO; AZIT500T66 PO
--- NOTE | 2025-01-23 13:47 | ED.PDOC ---
History of Present Illness HPI Comments This is a 84-year-old male with past medical history of ESRD on dialysis 3 times a week, CHF, hyperlipidemia, seizure disorder, parkinsonism, hypertension, dementia presented to the ED via EMS for uncontrolled bilateral tremor since morning prior to this visit. According to the EMS they brought the patient from dialysis center where patient went for the dialysis but due to the excessive tremor they were not able to do the dialysis today. At baseline patient has dementia did not remember when he started but mentioned that because of this excessive tremor complaining of soreness in the left shoulder joint. Per EMS when the patient was sleeping there was no tremor but as soon as he woke up started having bilateral tremor. He denies chest pain, shortness of breath, abdominal pain, nausea, vomiting, dysuria or any changes in bowel and bladder habit. Time Seen by MD: 13:28 Allergies: Coded Allergies: NO KNOWN ALLERGIES (Unverified , 01/17/25) Home Meds Active Scripts Azithromycin (Azithromycin) 500 Mg Tab, 500 MG PO DAILY for 5 Days, #5 TAB Prov:RAJI SERNA RESDIENT 01/21/25 Amoxicillin & Pot Clavulanate (AUGMENTIN TABLET) 875 Mg Tb, 875 MG PO BID for 5 Days, #10 TAB Prov:RAJI SERNA RESDIENT 01/21/25 Information Source: Patient, Emergency Med Personnel Mode of Arrival: EMS Severity: Moderate Timing: Hours Duration: Since onset Prehospital treatment: None Past Medical History PAST MEDICAL HISTORY: Alzheimer, CKF, Dementia, ESRD, High Lipids, HTN Past Medical History (Other): Parkinsonism Surgical History: Unknown Family History Family History: Reviewed,noncontributory to illness, No family hx of DM, No fa garrett hx of Heart magy, No family hx of HTN, No family hx ofKidney magy, No family hx of Liver magy, No family hx of Lung magy, No family hx of Stroke, Family hx of Cancer Social History Smoker: Non-Smoker Alcohol: Denies ETOH Use Drugs: Denies Drug Use Lives In: Home Constitutional: denies: chills, diaphoresis, fatigue, fever, malaise, sweats, weakness, others EENTM: denies: blurred vision, double vision, ear bleeding, ear discharge, ear drainage, ear pain, ear ringing, eye pain, eye redness, hearing loss, mouth pain, mouth swelling, nasal discharge, nose bleeding, nose congestion, nose pain, photophobia, tearing, throat pain, throat swelling, voice changes, others Respiratory: denies: cough, hemoptysis, orthopnea, SOB at rest, shortness of breath, SOB with excertion, stridor, wheezing, others Cardiovascular: denies: chest pain, dizzy spells, diaphoresis, Dyspnea on exertion, edema, irregular heart beat, left arm pain, lightheadedness, palpitations, PND, syncope, others Gastrointestinal: denies: abdomen distended, abdominal pain, blood streaked bowels, constipated, diarrhea, dysphagia, difficulty swallowing, hematemesis, melena, nausea, poor appetite, poor fluid intake, rectal bleeding, rectal pain, vomiting, others Genitourinary: denies: burning, dysuria, flank pain, frequency, hematuria, incontinence, penile discharge, penile sore, pain, testicle pain, testicle swelling, urgency, others Neurological: reports: tremors; denies: dizziness, fainting, headache, left sided numbness, left sided weakness, numbness, paresthesia, pre-existing deficit, right sided numbness, right sided weakness, seizure, speech problems, tingling, weakness, others Musculoskeletal: reports: joint pain; denies: back pain, gout, joint swelling, muscle pain, muscle stiffness, neck pain, others Integumetry: denies: bruises, change in color, change in hair/nails, dryness, laceration, lesions, lumps, rash, wounds, others Allergic/Immunocompromised: denies: Difficulty Healing, Frequent Infections, Hives, Itching, others Hematologic/Lymphatic: denies: anemia, blood clots, easy bleeding, easy bruising, swollen glands, others Endocrine: denies: excessive hunger, excessive sweating, excessive thirst, excessive urination, flushing, intolerance to cold, intolerance to heat, unexplained weight gain, unexplained weight loss, others Psychiatric: denies: anxiety, bipolar disorder, depression, hopeless, panic disorder, schizophrenia, sleepless, suicidal, others Physical Exam General Appearance: Mild Distress HEENT: Normal ENT Inspection, Pharynx Normal, TMs Normal Neck: Full Range of Motion, Non-Tender, Normal, Normal Inspection Respiratory: Chest Non-Tender, Lungs Clear, No Accessory Muscle Use, No Respiratory Distress, Normal Breath Sounds Cardiovascular: No Edema, No JVD, No Murmur, No Gallop, Normal Peripheral Pulses, Regular Rate/Rhythm Breast Exam: Deferred Gastrointestinal: No Organomegaly, Non Tender, No Pulsatile Mass, Normal Bowel Sounds Genitalia: Deferred Pelvic: Deferred Rectal: Deferred Extremities: No calf tenderness, Normal capillary refill, Normal inspection, Normal range of motion, Non-tender, No pedal edema Neurologic: Alert, skimmer II-XII nml as Tested, No Motor Deficits, Normal Affect, No Sensory Deficits Cerebellar Function: Tremor Reflexes: NOT DONE Skin: NOT DONE Peripheral Pulses: 2+ carotid (R), 2+ carotid (L), 2+ femoral (R), 2+ femoral (L), 2+ dorsalis pedis (R), 2+ dorsalis pedis (L), 2+ Radial (R), 2+ Radial (L), 2+ Brachial (R), 2+ Brachial (L) Lymphatic: NOT DONE Was a procedure done? Was a procedure done?: No Differential Dx Considerations may include: Parkinsonism, essential tremor, cerebellar tremor, drug toxicity X-Ray, Labs, Meds, VS Vital Signs Date Time Temp Pulse Resp B/P (MAP) Pulse Ox O2 Delivery O2 Flow Rate FiO2 01/23/25 17:47 63 18 119/46 (70) 94 01/23/25 13:45 98.1 84 11 136/78 95 98.1 Lab Test 01/23/25 13:58 Range/Units White Blood Count 7.4 4.4-10.8 10^3/uL Red Blood Count 3.12 L 4.5-5.90 10^6/uL Hemoglobin 10.1 L 13.5-17.5 g/dL Hematocrit 30.5 #L 41.0-53.0 % Mean Corpuscular Volume 97.7 80.0-100.0 fL Mean Corpuscular Hemoglobin 32.4 H 28.0-32.0 pg Mean Corpuscular Hemoglobin Concent 33.2 32.0-36.0 g/dL Red Cell Distribution Width 14.0 11.8-14.3 % Platelet Count 195 140-450 10^3/uL Mean Platelet Volume 9.0 6.9-10.8 fL Neutrophils (%) (Auto) 56.1 37.0-80.0 % Lymphocytes (%) (Auto) 21.2 10.0-50.0 % Monocytes (%) (Auto) 11.5 0.0-12.0 % Eosinophils (%) (Auto) 10.7 H 0.0-7.0 % Basophils (%) (Auto) 0.5 0.0-2.0 % Neutrophils # (Auto) 4.2 1.6-8.6 10 ^3/uL Lymphocytes # (Auto) 1.6 0.4-5.4 10 ^3/uL Monocytes # (Auto) 0.9 0-1.3 10 ^3/uL Eosinophils # (Auto) 0.8 0-0.8 10 ^3/uL Basophils # (Auto) 0 0-0.2 10 ^3/uL Nucleated Red Blood Cells 0.1 % Sodium Level 142 136-145 mmol/L Potassium Level 4.5 3.5-5.1 mmol/L Chloride Level 105 98-107 mmol/L Carbon Dioxide Level 24 20-31 mmol/L Anion Gap 13 5-15 Blood Urea Nitrogen 61 H 9-23 mg/dL Creatinine 5.80 H 0.700-1.30 mg/dL Glomerular Filtration Rate Calc 9 >90 mL/min BUN/Creatinine Ratio 10.5 10.0-20.0 Serum Glucose 99 74-106 mg/dL Calcium Level 8.1 L 8.7-10.4 mg/dL Total Bilirubin 0.2 0.2-1.0 mg/dL Aspartate Amino Transferase (AST) 10 L 13-40 U/L Alanine Aminotransferase (ALT) < 9 7-40 U/L Alkaline Phosphatase 111 46-116 U/L Total Protein 5.8 5.7-8.2 g/dL Albumin 3.6 3.2-4.8 g/dL X-Ray, Labs, Meds, VS Comment CT HEAD WITHOUT CONTRAST INDICATION: Bilateral tremor EXAM DATE: 01/23/2025 02:13 PM COMPARISON: CT HEAD WITHOUT CONTRAST on DOS: 01/17/25 RADIATION DOSE: CTDIvol: 66.23 mGy, DLP: 1304.91 mGy*cm PROCEDURE: CT scans of the head were obtained from the vertex to the skull base. Sagittal and coronal reconstructions were provided. All CT scans at this medical facility are performed using dose modulation techniques as appropriate to a performed exam including the following: Automated exposure control was utilized; adjustment of the MA and/or KV according to patient size; and use of iterative reconstruction technique. FINDINGS: A right eye prosthesis is noted. There is sulcal and ventricular prominence. The brainshows normal morphology and otero-white matter differentiati on, without intracranial hemorrhage, extra-axial fluid collection, mass effect or acute large vessel infarct. The ventricles are normal in size. The basal cisterns are patent. The skull and visible facial bones are intact. The paranasal sinuses, mastoid air cells and middle ear cavities are well-aerated. The soft tissues of the scalp are unremarkable. IMPRESSION: No acute intracranial abnormality. Images Reviewed?: Images reviewed and evaluated by me Time of 1ST Reevaluation: 18:50 Reevaluation 1ST: Unchanged Patient Education/Counseling: Diagnosis, Treatment Family Education/Counseling: No Family Present SEPSIS Sepsis Screen Physician Orders Urinalysis (01/23/25 13:42) Head Without Contrast (01/23/25 13:42) Vital Signs Date Time Temp Pulse Resp B/P (MAP) Pulse Ox O2 Delivery O2 Flow Rate FiO2 01/23/25 17:47 63 18 119/46 (70) 94 01/23/25 13:45 98.1 84 11 136/78 95 98.1 Laboratory Tests Test 01/23/25 13:58 White Blood Count 7.4 10^3/uL (4.4-10.8) Departure 1 Departure Time of Disposition: 18:54 Impression: Primary Impression: Parkinsonism Additional Impression: ESRD (end stage renal disease) Disposition: 30 STILL A PATIENT Admit to: Med Surg Condition: Guarded Critical Care Note Critical Care Time?: No Stability Stability form required: CAMERON Brian RESIDENT Jan 23, 2025 13:47
[2025-01-23 14:18] LABS: Hematocrit 30.5 % (41.0-53.0); Hemoglobin 10.1 g/dL (13.5-17.5); Mean Corpuscular Hemoglobin 32.4 pg (28.0-32.0); Mean Corpuscular Volume 97.7 fL (80.0-100.0); Nucleated Red Blood Cells % 0.1 %
[2025-01-23 14:31] LABS: Albumin 3.6 g/dL (3.2-4.8); Alkaline Phosphatase 111 U/L (46-116); Anion Gap 13 (5-15); BUN/Creatinine Ratio 10.5 (10.0-20.0); Carbon Dioxide 24 mmol/L (20-31); Chloride 105 mmol/L (98-107); Glucose 99 mg/dL (74-106); Potassium 4.5 mmol/L (3.5-5.1); Sodium 142 mmol/L (136-145); Total Protein 5.8 g/dL (5.7-8.2)
[2025-01-23 14:32] LABS: Alanine Aminotransferase < 9 U/L (7-40); Bilirubin, Total 0.2 mg/dL (0.2-1.0); Blood Urea Nitrogen 61 mg/dL (9-23); Calcium 8.1 mg/dL (8.7-10.4)
--- NOTE | 2025-01-23 14:46 | DVH ---
CT HEAD WITHOUT CONTRAST INDICATION: Bilateral tremor EXAM DATE: 01/23/2025 02:13 PM COMPARISON: CT HEAD WITHOUT CONTRAST on DOS: 01/17/25 RADIATION DOSE: CTDIvol: 66.23 mGy, DLP: 1304.91 mGy*cm PROCEDURE: CT scans of the head were obtained from the vertex to the skull base. Sagittal and coronal reconstructions were provided. All CT scans at this medical facility are performed using dose modulation techniques as appropriate t o a performed exam including the following: Automated exposure control was utilized; adjustment of th e MA and/or KV according to patient size; and use of iterative reconstruction technique. FINDINGS: A right eye prosthesis is noted. There is sulcal and ventricular prominence. The brainshow s normal morphology and otero-white matter differentiation, without intracranial hemorrhage, extra-axi al fluid collection, mass effect or acute large vessel infarct. The ventricles are normal in size. Th e basal cisterns are patent. The skull and visible facial bones are intact. The paranasal sinuses, ma stoid air cells and middle ear cavities are well-aerated. The soft tissues of the scalp are unremarka ble. IMPRESSION: No acute intracranial abnormality.
[2025-01-23 21:08] VITALS: PULSE 91; RESP 18; O2SAT 91
[2025-01-23] MEDS ORDERED: NITROGLYCERIN 0.4 MG SL TAB SL PRN (21:15)
[2025-01-23] MEDS ORDERED: MORPHINE SULFATE INJ 2 MG/ml SYRG IV PRN (21:15)
--- NOTE | 2025-01-23 21:22 | DVHHPRES ---
History of Present Illness Resident Creating Document: HARRY BARRETO RESIDENT History of Present Illness 84-year-old male with history of ESRD on dialysis, CHF, hyperlipidemia, seizure disorder, parkinsonism, hypertension, dementia complaints of having tremor since morning. The patient reports having mild shortness of breath, he denies any fever, chest pain, abdominal pain or any other complaints. There was a left- sided facial ulcer noted. The patient is confused and poor historian. Based on information from ER physician, the EMS brought the patient from dialysis center where the patient started having intractable tremor and ended up not having the dialysis done. His baseline mental status is dementia. Past medical history: Diabetes mellitus Past surgical history: Leg and back surgery Medicines:patient could not recall PCP: Patient tried to mention, but incomprehensive Smoking: Past smoker, used to take 3-4 packs per day Alcohol he was heavy alcohol user in the past Drug abuse: He never used drug Allergies: None Code status: DNR DNI Review of Systems Neurological: Other Other Tremor, confusion Allergies: Coded Allergies: NO KNOWN ALLERGIES (Unverified , 01/17/25) Medications Current Medications Medications Dose Ordered Sig/Zeke Route Start Time Stop Time Status Last Admin Dose Admin Nitroglycerin 0.4 mg Q5MINP PRN SL 01/23/25 21:15 UNV Morphine Sulfate 2 mg Q30M PRN IV 01/23/25 21:15 UNV Exam Vital Signs Vital Signs Date Time Temp Pulse Resp B/P (MAP) Pulse Ox O2 Delivery O2 Flow Rate FiO2 01/23/25 21:08 97.3 91 18 177/61 (99) 91 97.3 01/23/25 21:08 Room Air* 0 21 Exam Pt is lying on bed General Appearance: Confused, Cooperative, Mild distress HEENT: Left-sided lower facial ulcer measuring 4-5 cm, Atraumatic, Mucous membranes moist/pink Respiratory: Clear to auscultation, Normal air movement, No added sounds Cardiovascular: Regular rate, Normal S1, Normal S2, No murmurs Abdominal/ : Active bowel sounds, Soft, no distention, no tenderness Extremities: No edema, Normal pulses, No tenderness/swelling Skin: No Significant rash, except past surgical scars Neuro: Normal speech, sensorimotor deficits none Psych/Mental Status: Mental status NL, Mood NL Nurse was there as corrugator supervisor during examination Labs/Xrays Labs Test 01/23/25 13:58 Range/Units White Blood Count 7.4 4.4-10.8 10^3/uL Red Blood Count 3.12 L 4.5-5.90 10^6/uL Hemoglobin 10.1 L 13.5-17.5 g/dL Hematocrit 30.5 #L 41.0-53.0 % Mean Corpuscular Volume 97.7 80.0-100.0 fL Mean Corpuscular Hemoglobin 32.4 H 28.0-32.0 pg Mean Corpuscular Hemoglobin Concent 33.2 32.0-36.0 g/dL Red Cell Distribution Width 14.0 11.8-14.3 % Platelet Count 195 140-450 10^3/uL Mean Platelet Volume 9.0 6.9-10.8 fL Neutrophils (%) (Auto) 56.1 37.0-80.0 % Lymphocytes (%) (Auto) 21.2 10.0-50.0 % Monocytes (%) (Auto) 11.5 0.0-12.0 % Eosinophils (%) (Auto) 10.7 H 0.0-7.0 % Basophils (%) (Auto) 0.5 0.0-2.0 % Neutrophils # (Auto) 4.2 1.6-8.6 10 ^3/uL Lymphocytes # (Auto) 1.6 0.4-5.4 10 ^3/uL Monocytes # (Auto) 0.9 0-1.3 10 ^3/uL Eosinophils # (Auto) 0.8 0-0.8 10 ^3/uL Basophils # (Auto) 0 0-0.2 10 ^3/uL Nucleated Red Blood Cells 0.1 % Sodium Level 142 136-145 mmol/L Potassium Level 4.5 3.5-5.1 mmol/L Chloride Level 105 98-107 mmol/L Carbon Dioxide Level 24 20-31 mmol/L Anion Gap 13 5-15 Blood Urea Nitrogen 61 H 9-23 mg/dL Creatinine 5.80 H 0.700-1.30 mg/dL Glomerular Filtration Rate Calc 9 >90 mL/min BUN/Creatinine Ratio 10.5 10.0-20.0 Serum Glucose 99 74-106 mg/dL Calcium Level 8.1 L 8.7-10.4 mg/dL Total Bilirubin 0.2 0.2-1.0 mg/dL Aspartate Amino Transferase (AST) 10 L 13-40 U/L Alanine Aminotransferase (ALT) < 9 7-40 U/L Alkaline Phosphatase 111 46-116 U/L Total Protein 5.8 5.7-8.2 g/dL Albumin 3.6 3.2-4.8 g/dL SEPSIS Sepsis Screen Date sepsis recognized/suspect: Jan 23, 2025 Time Sepsis recognized/suspect: 2111 Recent Procedure: No On Antibiotic Therapy: No Respiratory Rate >20: No Heart Rate >90: No Temp<36 C (96.8 F) or >38.3 C: No SBP <90 or MAP <65 mmHG: No New Acute Mental Status Change: No Is the patient on CPAP, BIPAP,: No Physician Orders Urinalysis (01/23/25 13:42) Head Without Contrast (01/23/25 13:42) Admit (01/23/25 21:05) Allergies (01/23/25 21:05) Code Status (01/23/25 21:05) Oxygen Per Hour (01/23/25 21:05) Complete Blood Count (01/24/25 04:00) Comprehensive Metabolic Panel (01/24/25 04:00) Cardiac Diet-2gna,Lofat,Lochol (01/24/25 Breakfast) Nitroglycerin Sublingual (Ntrostat Subli (01/23/25 21:15) Morphine Sulfate Injection (01/23/25 21:15) Oxygen By Nasal Cannula (01/23/25 21:05) Stat Ekg For Chest Pain (01/23/25 21:05) Notify Of Changes From Base (01/23/25 21:05) Cafe Team Member For 24 Hours (01/23/25 21:05) Emergency Dysrhythmia Protocol (01/23/25 21:05) Rhythm Strips Once Every Shift (01/23/25 21:05) * Wound Consult (01/23/25 ) Vital Signs Date Time Temp Pulse Resp B/P (MAP) Pulse Ox O2 Delivery O2 Flow Rate FiO2 01/23/25 21:08 97.3 91 18 177/61 (99) 91 97.3 01/23/25 21:08 91 18 91 Room Air* 0 21 01/23/25 17:47 63 18 119/46 (70) 94 01/23/25 13:45 98.1 84 11 136/78 95 98.1 Laboratory Tests Test 01/23/25 13:58 White Blood Count 7.4 10^3/uL (4.4-10.8) Assessment/Plan Assessment/Plan #Tremor due to parkinsonism/other neurologic cause Confusion due to stroke/other neurologic causes -CT head without contrast: A right eye prosthesis is noted. No acute intracranial abnormality detected. #ESRD on dialysis: Creatinine 5.80 Nephrology is consulted and scheduled for dialysis tomorrow Anemia Hemoglobin 10.1 Monitor labs GI prophylaxis: Not indicated DVT prophylaxis: SCDs Diet: Renal Goals of care discussed with the patient for more than 27 minutes: Full code status Case discussed with Dr. Londono , patient and RN Plan discussed with: Other (RN) My Orders Orders - HARRY BARRETO Procedure Category Date Status Time Admit ADMIT 01/23/25 Transmitted 21:05 Allergies ROSIE 01/23/25 In Process 21:05 Code Status CODE 01/23/25 Transmitted 21:05 Oxygen Per Hour RT 01/23/25 Transmitted 21:05 Complete Blood Count LAB 01/24/25 Verified 04:00 Comprehensive LAB 01/24/25 Verified Metabolic Panel 04:00 Cardiac DIET 01/24/25 Transmitted Diet-2gna,Lofat,Lochol Breakfast Nitroglycerin PHA 01/23/25 Logged Sublingual (Ntrostat 21:15 Morphine Sulfate PHA 01/23/25 Logged Injection 21:15 Oxygen By Nasal RT 01/23/25 Transmitted Cannula 21:05 Stat Ekg For Chest ROSIE 01/23/25 In Process Pain 21:05 Notify Of Changes [facility] 01/23/25 In Process From Base 21:05 Cafe Team Member For [facility] 01/23/25 In Process 24 Hours 21:05 Emergency Dysrhythmia ROSIE 01/23/25 In Process Protocol 21:05 Rhythm Strips Once [facility] 01/23/25 In Process Every Shift 21:05 * Wound Consult CONS 01/23/25 Transmitted Common Visit Codes: 00545-[id number] INP/OBS CARE (HIGH) Secondary Visit Codes: 39559-[id number] CARE PLAN 30 MINUTES HARRY BARRETO Jan 23, 2025 21:22
[2025-01-24] VITALS (8 sets, daily range): BP systolic 100–173; BP diastolic 41–82; PULSE 59–104; RESP 16–22; TEMP 97.2–98; O2SAT 92–100
[2025-01-24] MEDS: diphenhdrAMINE HCL 50 MG/1 ML VL IV ONE (02:21)
[2025-01-24 11:44] LABS: Hematocrit 34.5 % (41.0-53.0); Hemoglobin 11.1 g/dL (13.5-17.5); Mean Corpuscular Hemoglobin 32.3 pg (28.0-32.0); Mean Corpuscular Volume 100.2 fL (80.0-100.0); Nucleated Red Blood Cells % 0.2 %
[2025-01-24 12:10] LABS: Alkaline Phosphatase 114 U/L (46-116); Anion Gap 13 (5-15); BUN/Creatinine Ratio 10.6 (10.0-20.0); Carbon Dioxide 22 mmol/L (20-31); Chloride 107 mmol/L (98-107); Glucose 84 mg/dL (74-106); Potassium 4.9 mmol/L (3.5-5.1); Sodium 142 mmol/L (136-145); Total Protein 5.7 g/dL (5.7-8.2)
[2025-01-24 12:11] LABS: Albumin 3.6 g/dL (3.2-4.8)
[2025-01-24 12:19] LABS: Alanine Aminotransferase < 9 U/L (7-40); Bilirubin, Total 0.2 mg/dL (0.2-1.0); Blood Urea Nitrogen 65 mg/dL (9-23); Calcium 8.1 mg/dL (8.7-10.4)
--- NOTE | 2025-01-24 14:36 | DVHPNRES ---
Progress Note Date Seen: Jan 24, 2025 Resident Creating Document: DILCIA CHA Medical Necessity Reason Pt with a Central, PICC or Fol: No Subjective Review of Systems This is an 84-year-old male with a history of ESRD on dialysis, CHF, hyperlipidemia, seizure disorder, parkinson disease, hypertension and dementia presenting with tremors since this morning. Patient reports mild shortness of breast but denies fever, chest pain, abdominal pain or any other complaints. Patient is confused and poor historian due to dementia. According to the ER physician, EMS transport the patient from the dialysis center after she developed intractable tremors and was unable to complete dialysis. Left-sided is facial ulcer was noted. Patient presents severe, intractable tremors in both upper and lower extremities. Patient is scheduled for dialysis tomorrow. Head CT- no acute intracranial abnormality. MRSA screen- No MRSA detected. Past medical history: ESRD on dialysis, CHF, hyperlipidemia, seizure disorder, parkinson disease, hypertension, dementia, Diabetes mellitus Past surgical history: Leg and back surgery Medicines: Patient could not recall PCP: Patient tried to mention, but incomprehensive Smoking: Past smoker, used to take 3-4 packs per day Alcoho: he was heavy alcohol user in the past Drug abuse: He never used drug Allergies: None Code status: DNR DNI Patient is alert and oriented to person, place and time (AOx3). Eyes: Right eye prosthesis. No Pain, No Vision change, No Conjunctivae inflammation, No Eyelid inflammation, No Other, No Redness ENT: No Ear pain, No Ear discharge, No Nose pain, No Nose discharge, No Nose congestion, No Mouth pain, No Mouth swelling, No Throat pain, No Throat swelling, No Other Cardiovascular: No Chest Pain, No Palpitations, No Orthopnea, No Paroxysmal No Dyspnea, No Edema, No Lt Headedness, No Other Respiratory: No Cough, No Dry, No Shortness of breath, No SOB with exertion, No Wheezing, No Hemoptysis, No Pleuritic Pain, No Sputum, No Other Gastrointestinal: No Nausea, No Vomiting, No Abdominal Pain, No Diarrhea, No Constipation, No Melena, No Hematochezia, No Other Genitourinary: No Dysuria, No Frequency, No Incontinence, No Hematuria, No Retention, No Other Neurological: Resting tremors; no dizziness, no fainting, no headache, no left sided numbness, no left sided weakness, no numbness, no paresthesia, no pre- existing deficit, no right sided numbness, no right sided weakness, no seizure, no speech problems, no tingling, no weakness, others Musculoskeletal: Joint pain. No other, No neck pain, No shoulder pain, No arm pain, No back pain, No hand pain, No leg pain, No foot pain Skin: No Rash, No Lesions, No Jaundice, No Bruising, No Other Objective vital signs Vital Sign Date Time Temp Pulse Resp B/P (MAP) Pulse Ox O2 Delivery O2 Flow Rate FiO2 01/24/25 13:00 98.0 59 17 126/52 (76) 100 98.0 01/24/25 08:00 Room Air* 0 21 Total Intake and Output 01/23/25 01/23/25 01/24/25 15:00 23:00 07:00 Intake Total 0 ml Balance 0 ml medications Current Medications Medications Dose Ordered Sig/Zeke Route Start Time Stop Time Status Last Admin Dose Admin Nitroglycerin 0.4 mg Q5MINP PRN SL 01/23/25 21:15 Morphine Sulfate 2 mg Q30M PRN IV 01/23/25 21:15 Examination General Appearance: Confused, Cooperative, Mild distress HEENT: Left-sided lower facial ulcer measuring 4-5 cm, Atraumatic, Mucous membranes moist/pink Respiratory: Clear to auscultation, Normal air movement, No added sounds Cardiovascular: Regular rate, Normal S1, Normal S2, No murmurs Abdominal/ : Active bowel sounds, Soft, no distention, no tenderness Extremities: No edema, Normal pulses, No tenderness/swelling Skin: No Significant rash, except past surgical scars Neuro: Normal speech, sensorimotor deficits none Psych/Mental Status: Mental status NL, Mood NL laboratory and microbiology Laboratory Tests 01/24/25 11:15 Test 01/24/25 11:15 Range/Units Serum Glucose 84 74-106 mg/dL Microbiology Date/Time Source Procedure Growth Status 01/24/25 08:40 Nose MRSA Screen - Final Complete Labs and/or images reviewed: Labs reviewed by me, Image(s) reviewed by me Problem List/Assessment/Plan Problem List/Assessment/Plan # ESRD on dialysis: -Creatinine 5.80 > 6.11 -consult Nephrology -dialysis tomorrow # Tremor due to parkinsonism -Resting tremor -Confusion due to stroke/other neurologic causes -CT head without contrast: No acute intracranial abnormality detected. A right eye prosthesis is noted. -Neurology consult # Microcytic microcytic anemia -Hemoglobin 10.1 > 11.1 -Hct 30.5 >34.5 MCH 32.4 > 32.3 -Monitor labs Diet: Renal GI prophylaxis: Not indicated DVT prophylaxis: SCDs Goals of care: DNR Plan discussed with patient Plan discussed with Dr. Oneil Plan discussed with: Patient, Other My Orders My Orders Orders - DILCIA CHA RESIDENT Procedure Category Date Status Time Complete Blood Count LAB 01/25/25 Verified 04:00 Basic Metabolic Panel LAB 01/25/25 Verified 04:00 Date of Service: Jan 24, 2025 Billing Provider: FABRICIO ONEIL MD Common Visit Codes: [id number] INP/OBS CARE(HIGH) Secondary Visit Codes: [id number] CARE PLAN 30 MINUTES DILCIA CHA RESIDENT Jan 24, 2025 14:36 SARAH OAKES RESIDENT Jan 24, 2025 18:23 FABRICIO ONEIL MD Jan 28, 2025 21:22
--- NOTE | 2025-01-24 18:18 | DVHINCON2 ---
Date of service: Jan 24, 2025 Reason for Consultation esrd History of Present Illness 84 years old male with past medical history of ESRD on dialysis, Congestive heart failure, dyslipidemia, Parkinson's disease, seizures, hypertension, diabetes, dementia presented with chief complaints of excessive tremors before starting dialysis staff noted access a tremors and unable to dialyze patient Past Medical History As per HPI Allergies: Coded Allergies: NO KNOWN ALLERGIES (Unverified , 01/17/25) Home Meds Active Scripts Azithromycin (Azithromycin) 500 Mg Tab, 500 MG PO DAILY for 5 Days, #5 TAB Prov:CAMI SERNAREILLY RESDIENT 01/21/25 Amoxicillin & Pot Clavulanate (AUGMENTIN TABLET) 875 Mg Tb, 875 MG PO BID for 5 Days, #10 TAB Prov:CAMILUISCAMIREILLY RESDIENT 01/21/25 Current Medications Current Medications Medications (Trade) Dose Ordered Sig/Zeke Route PRN Reason Start Time Stop Time Status Last Admin Nitroglycerin (Ntrostat Sublingual) 0.4 mg Q5MINP PRN SL FOR CHEST PAIN 01/23/25 21:15 Morphine Sulfate 2 mg Q30M PRN IV FOR CHEST PAIN 01/23/25 21:15 Review of Systems Unable to obtain H&P Exam Vital Signs/I&O Vital Sign Date Time Temp Pulse Resp B/P (MAP) Pulse Ox O2 Delivery O2 Flow Rate FiO2 01/24/25 17:00 98.0 87 17 127/63 (84) 96 98.0 01/24/25 08:00 Room Air* 0 21 Intake and Output 01/23/25 01/24/25 19:00 07:00 Intake Total 0 ml Balance 0 ml Intake Oral 0 ml Physical Exam Patient is sleeping Labs/Diagnostic Data Labs/Diagnostic Data Laboratory Tests Test 01/24/25 11:15 01/23/25 13:58 Range/Units White Blood Count 6.7 7.4 4.4-10.8 10^3/uL Red Blood Count 3.45 L 3.12 L 4.5-5.90 10^6/uL Hemoglobin 11.1 L 10.1 L 13.5-17.5 g/dL Hematocrit 34.5 #L 30.5 #L 41.0-53.0 % Mean Corpuscular Volume 100.2 H 97.7 80.0-100.0 fL Mean Corpuscular Hemoglobin 32.3 H 32.4 H 28.0-32.0 pg Mean Corpuscular Hemoglobin Concent 32.2 33.2 32.0-36.0 g/dL Red Cell Distribution Width 13.9 14.0 11.8-14.3 % Platelet Count 165 195 140-450 10^3/uL Mean Platelet Volume 8.6 9.0 6.9-10.8 fL Neutrophils (%) (Auto) 55.2 56.1 37.0-80.0 % Lymphocytes (%) (Auto) 23.1 21.2 10.0-50.0 % Monocytes (%) (Auto) 10.4 11.5 0.0-12.0 % Eosinophils (%) (Auto) 10.5 H 10.7 H 0.0-7.0 % Basophils (%) (Auto) 0.8 0.5 0.0-2.0 % Neutrophils # (Auto) 3.7 4.2 1.6-8.6 10 ^3/uL Lymphocytes # (Auto) 1.6 1.6 0.4-5.4 10 ^3/uL Monocytes # (Auto) 0.7 0.9 0-1.3 10 ^3/uL Eosinophils # (Auto) 0.7 0.8 0-0.8 10 ^3/uL Basophils # (Auto) 0.1 0 0-0.2 10 ^3/uL Nucleated Red Blood Cells 0.2 0.1 % Sodium Level 142 142 136-145 mmol/L Potassium Level 4.9 4.5 3.5-5.1 mmol/L Chloride Level 107 105 98-107 mmol/L Carbon Dioxide Level 22 24 20-31 mmol/L Anion Gap 13 13 5-15 Blood Urea Nitrogen 65 H 61 H 9-23 mg/dL Creatinine 6.11 H 5.80 H 0.700-1.30 mg/dL Glomerular Filtration Rate Calc 8 9 >90 mL/min BUN/Creatinine Ratio 10.6 10.5 10.0-20.0 Serum Glucose 84 99 74-106 mg/dL Calcium Level 8.1 L 8.1 L 8.7-10.4 mg/dL Total Bilirubin 0.2 0.2 0.2-1.0 mg/dL Aspartate Amino Transferase (AST) 15 10 L 13-40 U/L Alanine Aminotransferase (ALT) < 9 < 9 7-40 U/L Alkaline Phosphatase 114 111 46-116 U/L Total Protein 5.7 5.8 5.7-8.2 g/dL Albumin 3.6 3.6 3.2-4.8 g/dL Hepatitis B Surface Antigen Negative Negative Microbiology Date/Time Source Procedure Growth Status 01/24/25 08:40 Nose MRSA Screen - Final Complete Assessment ESRD on dialysis Excessive tremors/Parkinson's disease Anemia Recommendations Hemodialysis today neurology consult for excessive tremors Plan discussed with: Other EDUARD WILLIAMSON MD Jan 24, 2025 18:18
[2025-01-24] MEDS ORDERED: CARB-118 PO (18:36)
--- NOTE | 2025-01-24 21:08 | DVHINCON2 ---
Date of service: Jan 24, [address] Gil Reason for Consultation Excessively tremors History of Present Illness Mr. Neff is a 84 years old gentleman with a history of hypertension, dyslipidemia, end-stage kidney failure on hemodialysis, BPH, cancer, he came to the [facility] on 01/23[facility]2025 with a chief complaint of bilateral tremors since 01/23/2025. At that time, he speaks with normal voice, but is only oriented to person, place, he tells me he has a lot of tremor in the hands and legs, he is not able to feed himself, but otherwise not able to provide history His son, Guillermo, who live in [place], last time he saw the patient was in 09/2024, he claimed the patient was doing fine at that time Per my observation, the patient does have a lot of involuntary movement in the arms and legs, but the movement itself is not typical to Parkinson's disease. I do not see change in his facial abrasion, voice though he has not received any Parkinson's medication in the hospital External reconciled medication includes Sinemet 25/100 t.i.d., last few 10/23/2024 he was not keeps his hospital [phone] no answer. [phone] 2345 WBC/HB/PLT/MCV, 01/24/2025: 6.7/11.1/165/100.2 BUN/CR, 01/24/2025: 65/6.11 Vitamin B12, 01/18/2025: 379 Folic acid, 01/18/2025: 9.15 TSH, 12/29/24: 3.89 CT head, 01/23/2025: No acute intracranial abnormality Past Medical History Hypertension, dyslipidemia, Alzheimer disease, Parkinson's disease end-stage kidney failure on hemodialysis, BPH, cancer Past Surgical History Neck tumor removal Family History Son is not aware of major medical problem in the family Social History He was tobacco smoker, but no history of drug or alcohol abuse Allergies: Coded Allergies: NO KNOWN ALLERGIES (Unverified , 01/17/25) Home Meds Active Scripts Azithromycin (Azithromycin) 500 Mg Tab, 500 MG PO DAILY for 5 Days, #5 TAB Prov:RAJI SERNA RESDIDESTINEE 01/21/25 Amoxicillin & Pot Clavulanate (AUGMENTIN TABLET) 875 Mg Tb, 875 MG PO BID for 5 Days, #10 TAB Prov:RAJI SERNA RESDIENT 01/21/25 Reported Medications Levodopa W/Carbidopa (Sinemet) 25 /100 Tab, 1 TAB PO Q8HR for 30 Days, TAB 01/24/25 Current Medications Current Medications Medications (Trade) Dose Ordered Sig/Zeke Route PRN Reason Start Time Stop Time Status Last Admin Nitroglycerin (Ntrostat Sublingual) 0.4 mg Q5MINP PRN SL FOR CHEST PAIN 01/23/25 21:15 Morphine Sulfate 2 mg Q30M PRN IV FOR CHEST PAIN 01/23/25 21:15 Review of Systems As above, the other systems are negative Vital Signs Vital Signs Date Time Temp Pulse Resp B/P (MAP) Pulse Ox O2 Delivery O2 Flow Rate FiO2 01/24/25 17:00 98.0 87 17 127/63 (84) 96 98.0 01/24/25 08:00 Room Air* 0 21 Physical Exam GENERAL EXAM: General: the patient is well developed and nourished. No acute distress. HEENT: Normocephalic, neck is supple, no carotid bruits. No mass. RESPIRATORY: Normal respiratory effort with symmetrical lung expansion. Lungs clear to auscultation. CARDIOVASCULAR: Regular rate and rhythm with no murmurs. S1, S2. ABDOMEN: Soft, nontender, normal bowel sound NEUROLOGICAL: MENTAL STATUS: Awake and alert. Oriented to person, place, poor historian SPEECH, LANGUAGE, HIGHER CORTICAL FUNCTION: no aphasia or dysathria. Voice is normal CRANIAL NERVES: #2: Intact visual aranda to confrontation. #3,4,6: Pupils are equal, round and reactive. EOMs full and conjugate. #5: Facial sensation intact in all three divisions bilaterally. Mandibular strength intact. Normal blinking and facial expression #7: Facial muscles symmetrical and strength intact. #8: Hearing grossly normal to voice. #9,10: Uvula and soft palate rise in the midline. Swallow and voice are normal. #11: Trapezius and sternomastoid strength intact bilaterally. #12: Tongue midline. No fasciculations or atrophy. SENSATION: Sensation to touch and pinprick is normal. MOTOR: Normal tone in the upper and lower extremity. Normal muscle bulk. No fasciculations. Excessive involuntary movement in the arms and legs symmetrically. Muscle strength of the major groups in the upper extremities is 5/5. Muscle strength of the major groups in the lower extremities is 5/5. REFLEXES: Deep tendon are symmetrical. No pathological reflexes. CEREBELLAR/COORDINATION: Deferred GAIT/STATION: deferred. Labs/Diagnostic Data Labs Test 01/24/25 11:15 Range/Units White Blood Count 6.7 4.4-10.8 10^3/uL Red Blood Count 3.45 L 4.5-5.90 10^6/uL Hemoglobin 11.1 L 13.5-17.5 g/dL Hematocrit 34.5 #L 41.0-53.0 % Mean Corpuscular Volume 100.2 H 80.0-100.0 fL Mean Corpuscular Hemoglobin 32.3 H 28.0-32.0 pg Mean Corpuscular Hemoglobin Concent 32.2 32.0-36.0 g/dL Red Cell Distribution Width 13.9 11.8-14.3 % Platelet Count 165 140-450 10^3/uL Mean Platelet Volume 8.6 6.9-10.8 fL Neutrophils (%) (Auto) 55.2 37.0-80.0 % Lymphocytes (%) (Auto) 23.1 10.0-50.0 % Monocytes (%) (Auto) 10.4 0.0-12.0 % Eosinophils (%) (Auto) 10.5 H 0.0-7.0 % Basophils (%) (Auto) 0.8 0.0-2.0 % Neutrophils # (Auto) 3.7 1.6-8.6 10 ^3/uL Lymphocytes # (Auto) 1.6 0.4-5.4 10 ^3/uL Monocytes # (Auto) 0.7 0-1.3 10 ^3/uL Eosinophils # (Auto) 0.7 0-0.8 10 ^3/uL Basophils # (Auto) 0.1 0-0.2 10 ^3/uL Nucleated Red Blood Cells 0.2 % Sodium Level 142 136-145 mmol/L Potassium Level 4.9 3.5-5.1 mmol/L Chloride Level 107 98-107 mmol/L Carbon Dioxide Level 22 20-31 mmol/L Anion Gap 13 5-15 Blood Urea Nitrogen 65 H 9-23 mg/dL Creatinine 6.11 H 0.700-1.30 mg/dL Glomerular Filtration Rate Calc 8 >90 mL/min BUN/Creatinine Ratio 10.6 10.0-20.0 Serum Glucose 84 74-106 mg/dL Calcium Level 8.1 L 8.7-10.4 mg/dL Total Bilirubin 0.2 0.2-1.0 mg/dL Aspartate Amino Transferase (AST) 15 13-40 U/L Alanine Aminotransferase (ALT) < 9 7-40 U/L Alkaline Phosphatase 114 46-116 U/L Total Protein 5.7 5.7-8.2 g/dL Albumin 3.6 3.2-4.8 g/dL Hepatitis B Surface Antigen Negative Negative Microbiology Date/Time Source Procedure Growth Status 01/24/25 08:40 Nose MRSA Screen - Final Complete Assessment Excessive movement in the extremities ? Parkinson's disease ? Essential tremors ? Myoclonic jerk secondary to metabolic encephalopathy Metabolic encephalopathy Cognitive dysfunction ? Dementia Plan/Recommendation Monitoring Supportive treatment Telemetry A trial of Mysoline 25 mg HS Nephrology/hemodialysis Up to chair Physical therapy Need more history More recommendation per clinical course Prognosis: Poor This medical document was created using an electronic medical record system with [employer] dictation system. Although this document has been carefully reviewed, there may still be some phonetic and typographical errors. These areas are purely typographical due to imperfections of the software programs, and do not reflect any compromise in the patient's medical care. Plan discussed with: IrvinHay EMIGDIO ENGLE MD Jan 24, 2025 21:08
[2025-01-24] MEDS: PRIMIDONE 50 MG TAB PO ONE (22:53)
[2025-01-25] VITALS (7 sets, daily range): BP systolic 108–141; BP diastolic 47–73; PULSE 70–104; RESP 17–19; TEMP 98.2–98.6; O2SAT 97–100
[2025-01-25] MEDS ORDERED: DONETAB5 PO (05:17)
[2025-01-25] MEDS ORDERED: ASPI325T6 PO (05:17)
[2025-01-25] MEDS ORDERED: ATOR20TA PO (05:17)
[2025-01-25] MEDS ORDERED: LEVO100C3 PO (05:17)
[2025-01-25 06:58] LABS: Urine Protein, UAD TRACE (Negative)
[2025-01-25 07:54] LABS: Hematocrit 32.3 % (41.0-53.0); Hemoglobin 10.6 g/dL (13.5-17.5); Mean Corpuscular Hemoglobin 32.8 pg (28.0-32.0); Mean Corpuscular Volume 99.7 fL (80.0-100.0); Nucleated Red Blood Cells % 0.1 %
[2025-01-25 09:10] LABS: COVID19 ANTIGEN SOFIA FIA NEGATIVE (NEGATIVE)
[2025-01-25 10:41] LABS: Chloride 103 mmol/L (98-107); Potassium 4.4 mmol/L (3.5-5.1); Sodium 140 mmol/L (136-145)
[2025-01-25 10:42] LABS: Anion Gap 10 (5-15); Carbon Dioxide 27 mmol/L (20-31)
[2025-01-25 10:47] LABS: BUN/Creatinine Ratio 8.5 (10.0-20.0); Glucose 80 mg/dL (74-106)
[2025-01-25 10:50] LABS: Blood Urea Nitrogen 37 mg/dL (9-23); Calcium 8.2 mg/dL (8.7-10.4)
--- NOTE | 2025-01-25 15:18 | DVHPNRES ---
Progress Note Date Seen: Jan 25, 2025 Resident Creating Document: DILCIA CHA Medical Necessity Reason Pt with a Central, PICC or Fol: No Subjective Review of Systems This is an 84-year-old male with a history of ESRD on dialysis, CHF, hyperlipidemia, seizure disorder, parkinson disease, hypertension and dementia presenting with tremors since this morning. Patient reports mild shortness of breast but denies fever, chest pain, abdominal pain or any other complaints. Patient is confused and poor historian due to dementia. According to the ER physician, EMS transport the patient from the dialysis center after she developed intractable tremors and was unable to complete dialysis. Left-sided is facial ulcer was noted. Patient presents severe, intractable tremors in both upper and lower extremities. Patient is scheduled for dialysis tomorrow. Head CT- no acute intracranial abnormality. MRSA screen- No MRSA detected. Patient is alert and oriented to person, place and time (AOx3). The patient improved to time day situation. Patient said feeling good today, improve tremor but still have involuntary movement in the arms and legs, muscular tremor, not typical type of Parkinson tremor. Patient shows improvements of time, day, situation. Patient is undergo physical therapy and is scheduled for hemodialysis tomorrow. Objective vital signs Vital Sign Date Time Temp Pulse Resp B/P (MAP) Pulse Ox O2 Delivery O2 Flow Rate FiO2 01/25/25 13:05 98.2 75 18 141/73 (95) 97 98.2 01/25/25 08:00 Nasal Cannula* 3 32 Total Intake and Output 01/24/25 01/24/25 01/25/25 15:00 23:00 07:00 Intake Total 450 ml 50 ml Balance 450 ml 50 ml medications Current Medications Medications Dose Ordered Sig/Zeke Route Start Time Stop Time Status Last Admin Dose Admin Nitroglycerin 0.4 mg Q5MINP PRN SL 01/23/25 21:15 Morphine Sulfate 2 mg Q30M PRN IV 01/23/25 21:15 Primidone 25 mg HS PO 01/25/25 22:00 Examination General Appearance: Confused, Cooperative, Mild distress HEENT: Left-sided lower facial ulcer measuring 4-5 cm, Atraumatic, Mucous membranes moist/pink Respiratory: Clear to auscultation, Normal air movement, No added sounds Cardiovascular: Regular rate, Normal S1, Normal S2, No murmurs Abdominal/ : Active bowel sounds, Soft, no distention, no tenderness Extremities: No edema, Normal pulses, No tenderness/swelling Skin: No Significant rash, except past surgical scars Neuro: Normal speech, sensorimotor deficits none Psych/Mental Status: Mental status NL, Mood NL laboratory and microbiology Laboratory Tests 01/25/25 07:13 Test 01/25/25 07:13 Range/Units Serum Glucose 80 74-106 mg/dL Microbiology Date/Time Source Procedure Growth Status 01/24/25 08:40 Nose MRSA Screen - Final Complete Labs and/or images reviewed: Labs reviewed by me, Image(s) reviewed by me Problem List/Assessment/Plan Problem List/Assessment/Plan # ESRD on dialysis: -Creatinine 5.80 > 6.11 -consult Nephrology -dialysis tomorrow # Tremor due to parkinsonism -Resting tremor -Confusion due to stroke/other neurologic causes -CT head without contrast: No acute intracranial abnormality detected. A right eye prosthesis is noted. -Neurology consult -Primidone 25 mg (0.5 Tablets) # Microcytic microcytic anemia -Hemoglobin 10.1 > 11.1 -Hct 30.5 >34.5 -MCH 32.4 > 32.3 -Monitor labs Diet: Renal GI prophylaxis: Not indicated DVT prophylaxis: SCDs Goals of care: Full code, discussed for >16 minutes on 01/25/25 Plan discussed with patient Plan discussed with Dr. Oneil Plan discussed with: Patient, Other (RN) My Orders My Orders Orders - DILCIA CHA Procedure Category Date Status Time Apply Barrier Cream ROSIE 01/24/25 In Process 11:19 Pt Request For Service PT 01/25/25 Verified 15:16 Date of Service: Jan 25, 2025 Billing Provider: FABRICIO ONEIL MD Common Visit Codes: [id number] INP/OBS CARE(HIGH) DILCIA CHA Jan 25, 2025 15:18 FABRICIO ONEIL MD Jan 28, 2025 21:23
--- NOTE | 2025-01-25 17:22 | DVHPN2 ---
Progress Note Date Seen: Jan 25, 2025 Medical Necessity Reason Pt with a Central, PICC or Fol: No Subjective Review of Systems: NEURO:Abnormal Objective vital signs Vital Sign Date Time Temp Pulse Resp B/P (MAP) Pulse Ox O2 Delivery O2 Flow Rate FiO2 01/25/25 13:05 98.2 75 18 141/73 (95) 97 98.2 01/25/25 08:00 Nasal Cannula* 3 32 Total Intake and Output 01/24/25 01/24/25 01/25/25 15:00 23:00 07:00 Intake Total 450 ml 50 ml Balance 450 ml 50 ml medications Current Medications Medications Dose Ordered Sig/Zeke Route Start Time Stop Time Status Last Admin Dose Admin Nitroglycerin 0.4 mg Q5MINP PRN SL 01/23/25 21:15 Morphine Sulfate 2 mg Q30M PRN IV 01/23/25 21:15 Primidone 25 mg HS PO 01/25/25 22:00 Examination: GENERAL:Normal, CVS:Normal, NEURO:Abnormal laboratory and microbiology Laboratory Tests 01/25/25 07:13 Test 01/25/25 07:13 Range/Units Serum Glucose 80 74-106 mg/dL Microbiology Date/Time Source Procedure Growth Status 01/24/25 08:40 Nose MRSA Screen - Final Complete Problem List/Assessment/Plan Problem List/Assessment/Plan ESRD on dialysis Excessive tremors/Parkinson's disease Anemia Hemodialysis tomorrow epogen 3x a week neurology consult for excessive tremors Plan discussed with: Patient Total Time (mins): 20 LISSETTE JUNG MD Jan 25, 2025 17:21
[2025-01-25] MEDS: PRIMIDONE 50 MG TAB PO SCH (21:25)
--- NOTE | 2025-01-25 22:34 | DVHPN2 ---
Progress Note - Dictate Date Seen: Jan 25, 2025 Medical Necessity Reason Pt with a Central, PICC or Fol: No Subjective Mr. Neff is a 84 years old gentleman with a history of hypertension, dyslipidemia, end-stage kidney failure on hemodialysis, BPH, cancer, he came to the [facility] on 01/23/2025 with a chief complaint of bilateral tremors since 01/23/2025. I have seen and examined the patient, talked to his nurse, the patient is awake, oriented to person place, he still has a lot of tremor in both upper and lower extremity, but the tremor is significantly diminished when he is still in the bed He received 1st primidone around 01/25/2025 2200. WBC/HB/PLT/MCV, 01/24/2025: 6.7/11.1/165/100.2 BUN/CR, 01/24/2025: 65/6.11 Vitamin B12, 01/18/2025: 379 Folic acid, 01/18/2025: 9.15 TSH, 12/29/24: 3.89 CT head, 01/23/2025: No acute intracranial abnormality vital signs Vital Sign Date Time Temp Pulse Resp B/P (MAP) Pulse Ox O2 Delivery O2 Flow Rate FiO2 01/25/25 21:00 98.5 77 19 109/60 (76) 100 98.5 01/25/25 08:00 Nasal Cannula* 3 32 Total Intake and Output 01/24/25 01/24/25 01/25/25 15:00 23:00 07:00 Intake Total 450 ml 50 ml Output Total 0 ml Balance 450 ml 50 ml medications Current Medications Medications Dose Ordered Sig/Zeke Route Start Time Stop Time Status Last Admin Dose Admin Nitroglycerin 0.4 mg Q5MINP PRN SL 01/23/25 21:15 Morphine Sulfate 2 mg Q30M PRN IV 01/23/25 21:15 Primidone 25 mg HS PO 01/25/25 22:00 01/25/25 21:25 25 MG objective General: the patient is well developed and nourished. No acute distress. MENTAL STATUS: Awake and alert. Oriented to person, place, poor historian SPEECH, LANGUAGE, HIGHER CORTICAL FUNCTION: no aphasia or dysathria. Voice is normal CRANIAL NERVES: Pupils are equal, round and reactive. EOMs full and conjugate. Facial sensation intact in all three divisions bilaterally. Mandibular strength intact. Normal blinking and facial expression. Facial muscles symmetrical and strength intact. Tongue midline. No fasciculations or atrophy. SENSATION: Sensation to touch and pinprick is normal. MOTOR: Normal tone in the upper and lower extremity. Normal muscle bulk. No fasciculations. Excessive involuntary movement in the arms and legs symmetrically. Muscle strength of the major groups in the extremities is 5/5. REFLEXES: Deep tendon are symmetrical. No pathological reflexes. CEREBELLAR/COORDINATION: Deferred GAIT/STATION: deferred laboratory and microbiology Laboratory Tests 01/25/25 07:13 Test 01/25/25 07:13 Range/Units Serum Glucose 80 74-106 mg/dL Problem List Excessive movement in the extremities ? Parkinson's disease ? Essential tremors ? Myoclonic jerk secondary to metabolic encephalopathy Metabolic encephalopathy Cognitive dysfunction ? Dementia Assessment/Plan Monitoring Supportive treatment Telemetry Mysoline 25 mg HS and escalating Nephrology/hemodialysis Up to chair Physical therapy Need more history More recommendation per clinical course This medical document was created using an electronic medical record system with [employer] dictation system. Although this document has been carefully reviewed, there may still be some phonetic and typographical errors. These areas are purely typographical due to imperfections of the software programs, and do not reflect any compromise in the patient's medical care. Prognosis poor Plan discussed with: Other Total Time (mins): 35 EMIGDIO ENGLE MD Jan 25, 2025 22:34
[2025-01-26] VITALS (9 sets, daily range): BP systolic 122–185; BP diastolic 49–81; PULSE 64–100; RESP 16–19; TEMP 97.3–98; O2SAT 98–100
[2025-01-26 08:09] LABS: Calcium 8.7 mg/dL (8.7-10.4); Chloride 101 mmol/L (98-107); Potassium 4.1 mmol/L (3.5-5.1); Sodium 138 mmol/L (136-145)
[2025-01-26 08:10] LABS: Anion Gap 14 (5-15); Carbon Dioxide 23 mmol/L (20-31); Hematocrit 33.0 % (41.0-53.0); Hemoglobin 11.1 g/dL (13.5-17.5); Mean Corpuscular Hemoglobin 32.8 pg (28.0-32.0); Mean Corpuscular Volume 97.4 fL (80.0-100.0); Nucleated Red Blood Cells % 0.1 %
[2025-01-26 08:15] LABS: BUN/Creatinine Ratio 7.6 (10.0-20.0); Glucose 75 mg/dL (74-106)
[2025-01-26 08:16] LABS: Blood Urea Nitrogen 39 mg/dL (9-23)
[2025-01-26] MEDS: SODIUM CHL 0.9% 1000 ML BAG XX ONE (15:15)
--- NOTE | 2025-01-26 17:27 | DVHPNRES ---
Progress Note Date Seen: Jan 26, 2025 Resident Creating Document: DILCIA CHA Medical Necessity Reason Pt with a Central, PICC or Fol: No Subjective Review of Systems This is an 84-year-old male with a history of ESRD on dialysis, CHF, hyperlipidemia, seizure disorder, parkinson disease, hypertension and dementia presenting with tremors since this morning. Patient reports mild shortness of breast but denies fever, chest pain, abdominal pain or any other complaints. Patient is confused and poor historian due to dementia. According to the ER physician, EMS transport the patient from the dialysis center after she developed intractable tremors and was unable to complete dialysis. Left-sided is facial ulcer was noted. Patient presents severe, intractable tremors in both upper and lower extremities. Patient is scheduled for dialysis tomorrow. Head CT- no acute intracranial abnormality. MRSA screen- No MRSA detected. Patient is alert and oriented to person, place and time (AOx3). The patient improved to time day situation. Patient said feeling good today, improve tremor but still have involuntary movement in the arms and legs, muscular tremor, not typical type of Parkinson tremor. Patient shows improvements of time, day, situation. Patient is undergo physical therapy evaluation and is scheduled for hemodialysis tomorrow. 01/26/2025: After taking Primidone, patient reports significant improvement in tremors in both arms and legs but still has tremors in both feet. Patient received dialysis today afternoon and is scheduled to discharge to [facility]. Objective vital signs Vital Sign Date Time Temp Pulse Resp B/P (MAP) Pulse Ox O2 Delivery O2 Flow Rate FiO2 01/26/25 17:00 97.4 75 16 159/77 (104) 100 97.4 01/26/25 08:00 Nasal Cannula* 3 32 Total Intake and Output 01/25/25 01/25/25 01/26/25 15:00 23:00 07:00 Intake Total 0 ml 704 ml 325 ml Output Total 450 ml 200 ml Balance 0 ml 254 ml 125 ml medications Current Medications Medications Dose Ordered Sig/Zeke Route Start Time Stop Time Status Last Admin Dose Admin Nitroglycerin 0.4 mg Q5MINP PRN SL 01/23/25 21:15 Morphine Sulfate 2 mg Q30M PRN IV 01/23/25 21:15 Primidone 25 mg HS PO 01/25/25 22:00 01/25/25 21:25 25 MG Examination General Appearance: Confused, Cooperative, Mild distress HEENT: Left-sided lower facial ulcer measuring 4-5 cm, Atraumatic, Mucous membranes moist/pink Respiratory: Clear to auscultation, Normal air movement, No added sounds Cardiovascular: Regular rate, Normal S1, Normal S2, No murmurs Abdominal/ : Active bowel sounds, Soft, no distention, no tenderness Extremities: No edema, Normal pulses, No tenderness/swelling Skin: No Significant rash, except past surgical scars Neuro: Normal speech, sensorimotor deficits none Psych/Mental Status: Mental status NL, Mood NL laboratory and microbiology Laboratory Tests 01/26/25 06:44 Test 01/26/25 06:44 Range/Units Serum Glucose 75 74-106 mg/dL Microbiology Date/Time Source Procedure Growth Status 01/24/25 08:40 Nose MRSA Screen - Final Complete Labs and/or images reviewed: Labs reviewed by me, Image(s) reviewed by me Problem List/Assessment/Plan Problem List/Assessment/Plan # ESRD on dialysis: -Creatinine 5.80 > 6.11 > 5.1 -consult Nephrology -dialysis today (01/26/2025) # Tremor due to parkinsonism -Resting tremor -Confusion due to stroke/other neurologic causes -CT head without contrast: No acute intracranial abnormality detected. A right eye prosthesis is noted. -Neurology consult -Primidone 25 mg (0.5 Tablets) # Microcytic microcytic anemia -Hemoglobin 10.1 > 11.1 -Hct 30.5 >34.5 -MCH 32.4 > 32.3 -Monitor labs Diet: Renal GI prophylaxis: Not indicated DVT prophylaxis: SCDs Goals of care: Full code, discussed for >16 minutes on 01/26/25 Plan discussed with patient Plan discussed with Dr. Oneil Plan discussed with: Patient, Other (RN) Date of Service: Jan 26, 2025 Billing Provider: FABRICIO ONEIL MD Common Visit Codes: [id number] INP/OBS CARE(HIGH) DILCIA CHA RESIDENT Jan 26, 2025 17:27 FABRICIO ONEIL MD Jan 28, 2025 21:23
--- NOTE | 2025-01-26 23:19 | DVHPN2 ---
Progress Note - Dictate Date Seen: Jan 26, 2025 Medical Necessity Reason Pt with a Central, PICC or Fol: No Subjective Mr. 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 I have seen and examined the patient, talked to his nurse, the patient is awake, oriented to person, place, knows year and the month, he reports and confirmed no tremors in the extremities, he is happy, no treatment side effects WBC/HB/PLT/MCV, 01/24/2025: 6.7/11.1/165/100.2 BUN/CR, 01/24/2025: 65/6.11 Vitamin B12, 01/18/2025: 379 Folic acid, 01/18/2025: 9.15 TSH, 12/29/24: 3.89 CT head, 01/23/2025: No acute intracranial abnormality vital signs Vital Sign Date Time Temp Pulse Resp B/P (MAP) Pulse Ox O2 Delivery O2 Flow Rate FiO2 01/26/25 17:00 97.4 75 16 159/77 (104) 100 97.4 01/26/25 08:00 Nasal Cannula* 3 32 Total Intake and Output 01/25/25 01/25/25 01/26/25 15:00 23:00 07:00 Intake Total 0 ml 704 ml 325 ml Output Total 450 ml 200 ml Balance 0 ml 254 ml 125 ml medications Current Medications Medications Dose Ordered Sig/Zeke Route Start Time Stop Time Status Last Admin Dose Admin Nitroglycerin 0.4 mg Q5MINP PRN SL 01/23/25 21:15 Morphine Sulfate 2 mg Q30M PRN IV 01/23/25 21:15 Primidone 25 mg HS PO 01/25/25 22:00 01/26/25 21:07 25 MG objective General: the patient is well developed and nourished. No acute distress. MENTAL STATUS: Awake and alert. Oriented to person, place, poor historian SPEECH, LANGUAGE, HIGHER CORTICAL FUNCTION: no aphasia or dysathria. Voice is normal CRANIAL NERVES: Pupils are equal, round and reactive. EOMs full and conjugate. Facial sensation intact in all three divisions bilaterally. Mandibular strength intact. Normal blinking and facial expression. Facial muscles symmetrical and strength intact. Tongue midline. No fasciculations or atrophy. SENSATION: Sensation to touch and pinprick is normal. MOTOR: Normal tone in the upper and lower extremity. Normal muscle bulk. No fasciculations. Excessive involuntary movement in the arms and legs symmetrically. Muscle strength of the major groups in the extremities is 5/5. REFLEXES: Deep tendon are symmetrical. No pathological reflexes. CEREBELLAR/COORDINATION: Deferred GAIT/STATION: deferred laboratory and microbiology Laboratory Tests 01/26/25 06:44 Test 01/26/25 06:44 Range/Units Serum Glucose 75 74-106 mg/dL Problem List Excessive movement in the extremities Essential tremors ? Parkinson's disease ? Myoclonic jerk secondary to metabolic encephalopathy Metabolic encephalopathy Cognitive dysfunction ? Dementia Assessment/Plan Monitoring Supportive treatment Telemetry Mysoline 25 mg HS and escalating Nephrology/hemodialysis Up to chair Physical therapy Need more history More recommendation per clinical course This medical document was created using an electronic medical record system with [employer] dictation system. Although this document has been carefully reviewed, there may still be some phonetic and typographical errors. These areas are purely typographical due to imperfections of the software programs, and do not reflect any compromise in the patient's medical care. Prognosis poor Plan discussed with: Other EMIGDIO ENGLE MD Jan 26, 2025 23:19
[2025-01-27] VITALS (10 sets, daily range): BP systolic 112–164; BP diastolic 45–81; PULSE 67–98; RESP 16–19; TEMP 97.5–97.8; O2SAT 99–100
[2025-01-27 07:27] LABS: Hematocrit 34.2 % (41.0-53.0); Hemoglobin 11.5 g/dL (13.5-17.5); Mean Corpuscular Hemoglobin 32.7 pg (28.0-32.0); Mean Corpuscular Volume 97.2 fL (80.0-100.0); Nucleated Red Blood Cells % 0.1 %
[2025-01-27 07:40] LABS: Anion Gap 12 (5-15); Calcium 8.8 mg/dL (8.7-10.4); Carbon Dioxide 28 mmol/L (20-31); Chloride 100 mmol/L (98-107); Potassium 3.8 mmol/L (3.5-5.1); Sodium 140 mmol/L (136-145)
[2025-01-27 07:46] LABS: BUN/Creatinine Ratio 8.5 (10.0-20.0)
[2025-01-27 07:51] LABS: Blood Urea Nitrogen 35 mg/dL (9-23); Glucose 67 mg/dL (74-106)
--- NOTE | 2025-01-27 11:33 | DVHPN2 ---
Reviewed: Care Plan, H&P, Labs, Medications, Previous Orders, Radiology Changes from previous H/P or p: No Changes Objective Vitals Vital Signs Date Time Temp Pulse Resp B/P (MAP) Pulse Ox O2 Delivery O2 Flow Rate FiO2 01/27/25 08:55 97.7 98 16 129/70 (89) 100 97.7 01/27/25 08:17 Nasal Cannula* 3 32 Intake/Output Intake and Output 01/27/25 07:00 Intake Total 840 ml Output Total 225 ml Balance 615 ml Intake Oral 840 ml Output Urine Total 225 ml # Bowel Movements 2 Medications Current Medications Medications Dose Ordered Sig/Zeke Route Start Time Stop Time Status Last Admin Dose Admin Nitroglycerin 0.4 mg Q5MINP PRN SL 01/23/25 21:15 Morphine Sulfate 2 mg Q30M PRN IV 01/23/25 21:15 Primidone 25 mg HS PO 01/25/25 22:00 01/26/25 21:07 25 MG Laboratory Results Laboratory Tests 01/27/25 04:54 Chemistry Test 01/27/25 04:54 Calcium Level 8.8 mg/dL (8.7-10.4) Urinalysis Test 01/25/25 06:46 Urine Color Light-yellow (Yellow) Urine Clarity Clear (Clear) Urine pH 5.0 (5.0-9.0) Urine Specific [place] 1.015 (1.001-1.035) Urine Protein Trace (Negative) H Urine Ketones Negative (Negative) Urine Blood Negative /uL (Negative) Urine Nitrite Negative (Negative) Urine Bilirubin Negative (Negative) Urine Urobilinogen Normal mg/dL (Negative) Urine Leukocyte Esterase Negative /uL (Negative) Urine RBC 13 /hpf (0 - 3) Urine Microscopic WBC 2 /HPF (0-3) Urine Squamous Epithelial Cells Few /hpf (<5) Urine Bacteria Few /hpf (None Seen) H Urine Glucose Normal mg/dL (Normal) Microbiology Microbiology Date/Time Source Procedure Growth Status 01/24/25 08:40 Nose MRSA Screen - Final Complete Labs and/or images reviewed: Labs reviewed by me, Image(s) reviewed by me Assessment/Plan Assessment/Plan Covering for resident physician ESRD on hemodialysis Parkinson's disease Tremors due to Parkinson's versus essential tremors: Neurology consult appreciated placed on mysolin Microcytic anemia Plan discussed with: Patient Date of Service: Jan 27, 2025 Billing Provider: WHITNEY BOYLE MD Common Visit Codes: [id number] INP/OBS CARE(HIGH) WHITNEY BOYLE MD Jan 27, 2025 11:33
--- NOTE | 2025-01-27 15:57 | DVHPN2 ---
Progress Note Date Seen: Jan 27, 2025 Medical Necessity Reason Pt with a Central, PICC or Fol: No Objective vital signs Vital Sign Date Time Temp Pulse Resp B/P (MAP) Pulse Ox O2 Delivery O2 Flow Rate FiO2 01/27/25 12:56 97.8 75 16 139/73 (95) 99 97.8 01/27/25 08:17 Nasal Cannula* 3 32 Total Intake and Output 01/26/25 01/26/25 01/27/25 15:00 23:00 07:00 Intake Total 600 ml 240 ml Output Total 225 ml Balance 375 ml 240 ml medications Current Medications Medications Dose Ordered Sig/Zeke Route Start Time Stop Time Status Last Admin Dose Admin Nitroglycerin 0.4 mg Q5MINP PRN SL 01/23/25 21:15 Morphine Sulfate 2 mg Q30M PRN IV 01/23/25 21:15 Primidone 25 mg HS PO 01/25/25 22:00 01/26/25 21:07 25 MG Examination: GENERAL:Normal, CVS:Normal laboratory and microbiology Laboratory Tests 01/27/25 04:54 Test 01/27/25 04:54 Range/Units Serum Glucose 67 L 74-106 mg/dL Microbiology Date/Time Source Procedure Growth Status 01/24/25 08:40 Nose MRSA Screen - Final Complete Problem List/Assessment/Plan Problem List/Assessment/Plan ESRD on dialysis Excessive tremors/Parkinson's disease Anemia return to TTS schedule, monitor for tremors continue renal diet epogen 3x a week neurology consult for excessive tremors Plan discussed with: Patient Dietary Evaluation Review Recommendations by RD: Protein Supplementation Comments: 1) Change cardiac diet to 60g CCHO renal cardiac diet 2) Initiate Nepro qd 3) Encourage optimal PO intake 4) Refer to outpatient RD/CDCES for weight management 5) Follow-up with nephrology, neurology, and cardiology 6) Continue to monitor I&O, labs, and skin integrity Expected Outcomes/Goals: 1) appetite and labs to improve 2) f/u in 3-5 days Total Time (mins): 33 LISSETTE JUNG MD Jan 27, 2025 15:57
[2025-01-27] MEDS ORDERED: METO-159 PO (22:16)
[2025-01-28] VITALS (9 sets, daily range): BP systolic 108–161; BP diastolic 56–78; PULSE 61–81; RESP 15–20; TEMP 97.8–98.9; O2SAT 96–99
[2025-01-28 07:10] LABS: Chloride 98 mmol/L (98-107); Potassium 3.5 mmol/L (3.5-5.1); Sodium 138 mmol/L (136-145)
[2025-01-28 07:11] LABS: Anion Gap 12 (5-15); Calcium 9.0 mg/dL (8.7-10.4); Carbon Dioxide 28 mmol/L (20-31)
[2025-01-28 07:16] LABS: BUN/Creatinine Ratio 7.4 (10.0-20.0)
[2025-01-28 07:17] LABS: Blood Urea Nitrogen 35 mg/dL (9-23); Glucose 72 mg/dL (74-106)
[2025-01-28] MEDS: METOPROLOL TARTRATE 25 MG TAB PO SCH (09:18)
--- NOTE | 2025-01-28 12:00 | DVHPN2 ---
Progress Note Date Seen: Jan 28, 2025 Medical Necessity Reason Pt with a Central, PICC or Fol: No Objective vital signs Vital Sign Date Time Temp Pulse Resp B/P (MAP) Pulse Ox O2 Delivery O2 Flow Rate FiO2 01/28/25 10:18 66 133/68 01/28/25 08:51 98.1 16 98 98.1 01/28/25 08:00 Nasal Cannula* 3 32 Total Intake and Output 01/27/25 01/27/25 01/28/25 15:00 23:00 07:00 Intake Total 200 ml 300 ml 230 ml Output Total 75 ml Balance 200 ml 300 ml 155 ml medications Current Medications Medications Dose Ordered Sig/Zeke Route Start Time Stop Time Status Last Admin Dose Admin Nitroglycerin 0.4 mg Q5MINP PRN SL 01/23/25 21:15 Morphine Sulfate 2 mg Q30M PRN IV 01/23/25 21:15 Primidone 25 mg HS PO 01/25/25 22:00 01/27/25 21:15 25 MG Clonidine HCl 0.1 mg Q4HP PRN PO 01/28/25 00:15 Metoprolol Tartrate 25 mg BID PO 01/28/25 10:00 01/28/25 09:18 25 MG Examination: GENERAL:Normal, CVS:Normal laboratory and microbiology Laboratory Tests 01/28/25 05:00 01/27/25 04:54 Test 01/28/25 05:00 Range/Units Serum Glucose 72 L 74-106 mg/dL Microbiology Date/Time Source Procedure Growth Status 01/24/25 08:40 Nose MRSA Screen - Final Complete Problem List/Assessment/Plan Problem List/Assessment/Plan ESRD on dialysis Excessive tremors/Parkinson's disease Anemia hypertension return to TTS schedule, monitor for tremors BP responded to metoprolol po continue renal diet epogen 3x a week neurology consult for excessive tremors Plan discussed with: Patient Dietary Evaluation Review Recommendations by RD: Protein Supplementation Comments: 1) Change cardiac diet to 60g CCHO renal cardiac diet 2) Initiate Nepro qd 3) Encourage optimal PO intake 4) Refer to outpatient RD/CD[facility] for weight management 5) Follow-up with nephrology, neurology, and cardiology 6) Continue to monitor I&O, labs, and skin integrity Expected Outcomes/Goals: 1) appetite and labs to improve 2) f/u in 3-5 days Total Time (mins): 20 OLADELE,LISSETTE M MD Jan 28, 2025 12:00
--- NOTE | 2025-01-28 12:44 | DVHPNRES ---
Progress Note Date Seen: Jan 28, 2025 Resident Creating Document: DILCIA CHA Medical Necessity Reason Pt with a Central, PICC or Fol: No Subjective Review of Systems This is an 84-year-old male with a history of ESRD on dialysis, CHF, hyperlipidemia, seizure disorder, parkinson disease, hypertension and dementia presenting with tremors since this morning. Patient reports mild shortness of breast but denies fever, chest pain, abdominal pain or any other complaints. Patient is confused and poor historian due to dementia. According to the ER physician, EMS transport the patient from the dialysis center after she developed intractable tremors and was unable to complete dialysis. Left-sided is facial ulcer was noted. Patient presents severe, intractable tremors in both upper and lower extremities. Patient is scheduled for dialysis tomorrow. Head CT- no acute intracranial abnormality. MRSA screen- No MRSA detected. Patient is alert and oriented to person, place and time (AOx3). The patient improved to time day situation. Patient said feeling good today, improve tremor but still have involuntary movement in the arms and legs, muscular tremor, not typical type of Parkinson tremor. Patient shows improvements of time, day, situation. Patient is undergo physical therapy evaluation and is scheduled for hemodialysis tomorrow. 01/26/2025: After taking Primidone, patient reports significant improvement in tremors in both arms and legs but still has tremors in both feet. Patient received dialysis today afternoon and is scheduled to discharge to [facility]. 01/28/2025: On evaluation today, he states he is well, tremors is manageable. His vitals have remained stable for discharge home. Mr. Neff's caregiver is currently unable to facilitate discharge to home due to support issues. As a result, discharge planning has been postponed. A request has been made to extend hospitalization through tomorrow to allow time for appropriate arrangements to be made. Objective vital signs Vital Sign Date Time Temp Pulse Resp B/P (MAP) Pulse Ox O2 Delivery O2 Flow Rate FiO2 01/28/25 10:18 66 133/68 01/28/25 08:51 98.1 16 98 98.1 01/28/25 08:00 Nasal Cannula* 3 32 Total Intake and Output 01/27/25 01/27/25 01/28/25 15:00 23:00 07:00 Intake Total 200 ml 300 ml 230 ml Output Total 75 ml Balance 200 ml 300 ml 155 ml medications Current Medications Medications Dose Ordered Sig/Zeke Route Start Time Stop Time Status Last Admin Dose Admin Nitroglycerin 0.4 mg Q5MINP PRN SL 01/23/25 21:15 Morphine Sulfate 2 mg Q30M PRN IV 01/23/25 21:15 Primidone 25 mg HS PO 01/25/25 22:00 01/27/25 21:15 25 MG Clonidine HCl 0.1 mg Q4HP PRN PO 01/28/25 00:15 Metoprolol Tartrate 25 mg BID PO 01/28/25 10:00 01/28/25 09:18 25 MG Examination General Appearance: Confused, Cooperative, Mild distress HEENT: Left-sided lower facial ulcer measuring 4-5 cm, Atraumatic, Mucous membranes moist/pink Respiratory: Clear to auscultation, Normal air movement, No added sounds Cardiovascular: Regular rate, Normal S1, Normal S2, No murmurs Abdominal/ : Active bowel sounds, Soft, no distention, no tenderness Extremities: No edema, Normal pulses, No tenderness/swelling Skin: No Significant rash, except past surgical scars Neuro: Normal speech, sensorimotor deficits none Psych/Mental Status: Mental status NL, Mood NL laboratory and microbiology Laboratory Tests 01/28/25 05:00 01/27/25 04:54 Test 01/28/25 05:00 Range/Units Serum Glucose 72 L 74-106 mg/dL Microbiology Date/Time Source Procedure Growth Status 01/24/25 08:40 Nose MRSA Screen - Final Complete Labs and/or images reviewed: Labs reviewed by me, Image(s) reviewed by me Problem List/Assessment/Plan Problem List/Assessment/Plan # ESRD on dialysis: -Creatinine 5.80 > 6.11 > 5.1 -consult Nephrology -dialysis (01/27/2025) # Tremor due to parkinsonism -Resting tremor -Confusion due to stroke/other neurologic causes -CT head without contrast: No acute intracranial abnormality detected. A right eye prosthesis is noted. -Neurology consult -Primidone 25 mg (0.5 Tablets) # Microcytic microcytic anemia -Hemoglobin 10.1 > 11.1 -Hct 30.5 >34.5 -MCH 32.4 > 32.3 -Monitor labs Diet: Renal GI prophylaxis: Not indicated DVT prophylaxis: SCDs Goals of care: Full code, discussed for >16 minutes on 01/28/25 Plan discussed with patient Plan discussed with Dr. Ramirez Plan discussed with: Patient, Other Dietary Evaluation Review Recommendations by RD: Protein Supplementation Comments: 1) Change cardiac diet to 60g CCHO renal cardiac diet 2) Initiate Nepro qd 3) Encourage optimal PO intake 4) Refer to outpatient RD/CDCES for weight management 5) Follow-up with nephrology, neurology, and cardiology 6) Continue to monitor I&O, labs, and skin integrity Expected Outcomes/Goals: 1) appetite and labs to improve 2) f/u in 3-5 days Date of Service: Jan 28, 2025 Billing Provider: MANE RAMIREZ MD Common Visit Codes: [id number] INP/OBS CARE(HIGH) DILCIA CHA RESIDENT Jan 28, 2025 12:44 MANE RAMIREZ MD Jan 28, 2025 18:11
[2025-01-29 01:00] VITALS: BP 135/66; PULSE 70; RESP 18; TEMP 97.5; O2SAT 97
[2025-01-29 05:00] VITALS: BP 139/77; PULSE 63; RESP 18; TEMP 97.5; O2SAT 98
--- NOTE | 2025-01-29 06:15 | DVHDSRES ---
Discharge Summary Date of Admission Resident Creating Document: DILCIA CHA RESIDENT Jan 23, 2025 at 21:05 Date of Discharge: Jan 29, 2025 Labs/Diagnostic Data: Laboratory Results Test 01/28/25 05:00 01/27/25 04:54 01/25/25 08:20 01/25/25 08:19 Sodium Level 138 mmol/L (136-145) Potassium Level 3.5 mmol/L (3.5-5.1) Chloride Level 98 mmol/L (98-107) Carbon Dioxide Level 28 mmol/L (20-31) Anion Gap 12 (5-15) Blood Urea Nitrogen 35 mg/dL (9-23) Creatinine 4.72 mg/dL (0.700-1.30) Glomerular Filtration Rate Calc 12 mL/min (>90) BUN/Creatinine Ratio 7.4 (10.0-20.0) Serum Glucose 72 mg/dL (74-106) Calcium Level 9.0 mg/dL (8.7-10.4) White Blood Count 7.5 10^3/uL (4.4-10.8) Red Blood Count 3.52 10^6/uL (4.5-5.90) Hemoglobin 11.5 g/dL (13.5-17.5) Hematocrit 34.2 % (41.0-53.0) Mean Corpuscular Volume 97.2 fL (80.0-100.0) Mean Corpuscular Hemoglobin 32.7 pg (28.0-32.0) Mean Corpuscular Hemoglobin Concent 33.6 g/dL (32.0-36.0) Red Cell Distribution Width 13.7 % (11.8-14.3) Platelet Count 175 10^3/uL (140-450) Mean Platelet Volume 8.7 fL (6.9-10.8) Neutrophils (%) (Auto) 56.8 % (37.0-80.0) Lymphocytes (%) (Auto) 23.1 % (10.0-50.0) Monocytes (%) (Auto) 9.2 % (0.0-12.0) Eosinophils (%) (Auto) 9.8 % (0.0-7.0) Basophils (%) (Auto) 1.1 % (0.0-2.0) Neutrophils # (Auto) 4.3 10 ^3/uL (1.6-8.6) Lymphocytes # (Auto) 1.7 10 ^3/uL (0.4-5.4) Monocytes # (Auto) 0.7 10 ^3/uL (0-1.3) Eosinophils # (Auto) 0.7 10 ^3/uL (0-0.8) Basophils # (Auto) 0.1 10 ^3/uL (0-0.2) Nucleated Red Blood Cells 0.1 % Influenza Type A Antigen Negative (Negative) Influenza Type B Antigen Negative (Negative) SARS-CoV-2 Antigen (Rapid) Negative (NEGATIVE) Test 01/25/25 06:46 01/24/25 11:15 Urine Color Light-yellow (Yellow) Urine Clarity Clear (Clear) Urine pH 5.0 (5.0-9.0) Urine Specific [place] 1.015 (1.001-1.035) Urine Protein Trace (Negative) Urine Ketones Negative (Negative) Urine Blood Negative /uL (Negative) Urine Nitrite Negative (Negative) Urine Bilirubin Negative (Negative) Urine Urobilinogen Normal mg/dL (Negative) Urine Leukocyte Esterase Negative /uL (Negative) Urine RBC 13 /hpf (0 - 3) Urine Microscopic WBC 2 /HPF (0-3) Urine Squamous Epithelial Cells Few /hpf (<5) Urine Bacteria Few /hpf (None Seen) Urine Glucose Normal mg/dL (Normal) Total Bilirubin 0.2 mg/dL (0.2-1.0) Aspartate Amino Transferase (AST) 15 U/L (13-40) Alanine Aminotransferase (ALT) < 9 U/L (7-40) Alkaline Phosphatase 114 U/L (46-116) Total Protein 5.7 g/dL (5.7-8.2) Albumin 3.6 g/dL (3.2-4.8) Hepatitis B Surface Antigen Negative (Negative) Other Laboratory Tests 01/28/25 05:00 01/27/25 04:54 Brief Hx & Hospital Course: 84-year-old male with a complex medical history including end-stage renal disease on dialysis, congestive heart failure, hyperlipidemia, seizure disorder, Parkinsons disease, hypertension, dementia, and diabetes mellitus presented with intractable tremors in both upper and lower extremities. Symptoms began earlier in the day during dialysis, which was discontinued due to severity of tremors. He also reported mild shortness of breath but denied chest pain, fever, or abdominal complaints. Due to dementia, he was a poor historian. A left-sided facial ulcer was noted on exam. Initial evaluation included CT head, which showed no acute intracranial abnormalities. Neurology was consulted, and the patient was started on Primidone with significant improvement in tremors. He remained alert and oriented (AOx3) and underwent physical therapy evaluation. Dialysis was completed on 01/27/2025. On 01/28/2025, the patient reported manageable tremors and stable vitals. Discharge planning was delayed due to caregiver support issues, and arrangements were made for transfer to home. All medications and recommendations were thoroughly explained and the patient states he understands and agrees. Detailed discussion held with patient at bedside were all questions were answered and concerns were addressed. Operations or Procedures PROCEDURE(s): HWOCT - HEAD WITHOUT CONTRAST REASON: Bilateral tremor ORDER NUMBER(s): [id number], ACCESSION NUMBER(s): [id number] CT HEAD WITHOUT CONTRAST INDICATION: Bilateral tremor EXAM DATE: 01/23/2025 02:13 PM COMPARISON: CT HEAD WITHOUT CONTRAST on DOS: 01/17/25 RADIATION DOSE: CTDIvol: 66.23 mGy, DLP: 1304.91 mGy*cm PROCEDURE: CT scans of the head were obtained from the vertex to the skull base. Sagittal and coronal reconstructions were provided. All CT scans at this medical facility are performed using dose modulation techniques as appropriate to a performed exam including the following: Automated exposure control was utilized; adjustment of the MA and/or KV according to patient size; and use of iterative reconstruction technique. FINDINGS: A right eye prosthesis is noted. There is sulcal and ventricular prominence. The brainshows normal morphology and otero-white matter differentiation, without intracranial hemorrhage, extra-axial fluid collection, mass effect or acute large vessel infarct. The ventricles are normal in size. The basal cisterns are patent. The skull and visible facial bones are intact. The paranasal sinuses, mastoid air cells and middle ear cavities are well- aerated. The soft tissues of the scalp are unremarkable. IMPRESSION: No acute intracranial abnormality. Condition at Discharge: Stable Final Diagnosis/Problems List # ESRD on dialysis # Tremor due to parkinsonism # Microcytic microcytic anemia Discharge Disposition: Home SNF Discharge Will this Physician continue t: No (RN) Discharge Instruct/Medications Diet: Renal Activity: Bed rest Follow Up/Referral: Follow up with PCP in 1 week. Follow up with Nephrology in 1 week. Scheduled Amoxicillin & Pot Clavulanate (Augmentin Tablet), 875 MG PO BID Aspirin (Aspirin), 325 MG PO DAILY, (Reported) Atorvastatin Calcium (Lipitor), 1 TAB PO DAILY, (Reported) Azithromycin (Azithromycin), 500 MG PO DAILY Levodopa W/Carbidopa (Sinemet), 1 TAB PO Q8HR, (Reported) Metoprolol Tartrate (Metoprolol Tartrate), 1 TAB PO DAILY, (Reported) Miscellaneous Medications Donepezil Hydrochloride (Donepezil Hcl), 5 MG PO, (Reported) Levothyroxine Sodium (Levothyroxine Sodium), 100 MCG PO, (Reported) Discharge Statement: "Patient was advised to return to the ER or call 911 if any headaches, dizziness, shortness of breath, chest pain, abdominal pain, bleeding, fevers, or worsening of medical condition. Patient was counseled about treatment plan, medications, possible side effects, patientverbalized understanding. All questions were answered to the best of my ability. This discharge took greater then 30 minutes in planning, reviewing documentation, counseling the patient, and discussing with other team members." ASSESSMENT ASSESSMENT Assessment # ESRD on dialysis # Tremor due to parkinsonism # Microcytic microcytic anemia DILCIA CHA RESIDENT Jan 29, 2025 06:15
[2025-01-29 08:00] VITALS: PULSE 79
[2025-01-29 09:25] VITALS: BP 148/79; PULSE 71; RESP 18; TEMP 97.5; O2SAT 90
[2025-01-29 10:06] LABS: Hematocrit 35.1 % (41.0-53.0); Hemoglobin 11.7 g/dL (13.5-17.5); Mean Corpuscular Hemoglobin 32.2 pg (28.0-32.0); Mean Corpuscular Volume 96.1 fL (80.0-100.0); Nucleated Red Blood Cells % 0.1 %
[2025-01-29 10:16] LABS: Anion Gap 12 (5-15); Calcium 9.3 mg/dL (8.7-10.4); Carbon Dioxide 28 mmol/L (20-31); Chloride 99 mmol/L (98-107); Potassium 4.1 mmol/L (3.5-5.1); Sodium 139 mmol/L (136-145)
[2025-01-29 10:26] LABS: Glucose 90 mg/dL (74-106)
[2025-01-29 11:11] VITALS: BP 148/79; PULSE 71
[2025-01-29 11:19] LABS: BUN/Creatinine Ratio 8.3 (10.0-20.0); Blood Urea Nitrogen 44 mg/dL (9-23)
== END 2025-01-29 13:08 | disposition home health service (06) | DRG 56 ==
LOC: EDBD 13:22 → ER 13:22 → OVERFLOW 21:05 → TELE-WESTW 01-24 02:44
PROVIDERS: ADMIT Internal Medicine Geriatric Medicine; ATTEND Emergency Medicine
DX: G20.A1 Parkinson's disease without dyskinesia, without mention of fluctuations (principal); G93.41 Metabolic encephalopathy; N18.6 End stage renal disease; I13.2 Hypertensive heart and chronic kidney disease with heart failure and with stage 5 chronic kidney disease, or end stage renal disease; Z99.2 Dependence on renal dialysis; I50.9 Heart failure, unspecified; Z20.822 Contact with and (suspected) exposure to COVID-19; G25.0 Essential tremor; G30.9 Alzheimer's disease, unspecified; D50.9 Iron deficiency anemia, unspecified; G40.909 Epilepsy, unspecified, not intractable, without status epilepticus; F02.80 Dementia in other diseases classified elsewhere, unspecified severity, without behavioral disturbance, psychotic disturbance, mood disturbance, and anxiety; N40.0 Benign prostatic hyperplasia without lower urinary tract symptoms; F17.200 Nicotine dependence, unspecified, uncomplicated; E78.5 Hyperlipidemia, unspecified
CPT/HCPCS: 36415; 70450; 71046; 80048; 80053; 81001; 85025; 87081; 87340; 87426; 87804; 90935; 97110; 97116; 97163; 97530; G0378; J1642

== ENCOUNTER 2025-01-30 16:33 | Inpatient (IN) | payer OTHER, MEDICAID ==
[~2025-01-30] VITALS: Ht 172.7 cm; Wt 98.9 kg
[~2025-01-30 16:33] MED LIST changes: +ASPI325T6 PO; +ATOR20TA PO; +CARB-118 PO; +DONETAB5 PO; +LEVO100C3 PO; +METO-159 PO
--- NOTE | 2025-01-30 17:44 | ED.PDOC ---
Jaylin. trauma (HPI) HPI Comments 85 y/o M, BIBA, with PMHx Alzheimer's, dementia, HLD, and HTN presents to the ED for CC of s/p fall. Patient is a poor historian, reports he had a fall while trying to use the restroom. Patient relays, that he usually ambulates with a walker and had some slight unbalance causing fall. He states he fell to his knees, he has had double knee replacement. Upon incising the patient states his knee feel better. He is able to move his knees freely. Patient has PMHx of ESRD and CKF and has not received dialysis in x5days. At this time patient has no complaints and denies any trauma, head injury, LOC, nausea, or vomiting. Chief Complaint: Lower Extremity Time Seen by MD: 17:25 Reviewed notes: Nurses Notes, Medications, Allergies Allergies: Coded Allergies: NO KNOWN ALLERGIES (Unverified , 01/17/25) Home Meds Active Scripts Azithromycin (Azithromycin) 500 Mg Tab, 500 MG PO DAILY for 5 Days, #5 TAB Prov:RAJI SERNA RESDIENT 01/21/25 Amoxicillin & Pot Clavulanate (AUGMENTIN TABLET) 875 Mg Tb, 875 MG PO BID for 5 Days, #10 TAB Prov:RAJI SERNA RESDIENT 01/21/25 Reported Medications Metoprolol Tartrate (Metoprolol Tartrate) 100 Mg Tab, 1 TAB PO DAILY 01/27/25 Atorvastatin Calcium (Lipitor) 20 Mg Tab, 1 TAB PO DAILY, #90 TAB 1 Refill 01/25/25 Donepezil Hydrochloride (DONEPEZIL HCL) 5 Mg Tab, 5 MG PO, TAB 01/25/25 Aspirin (Aspirin) 325 Mg Tab, 325 MG PO DAILY for 30 Days, MG 01/25/25 Levothyroxine Sodium (Levothyroxine Sodium) 100 Mcg Cap, 100 MCG PO, CAP 01/25/25 Levodopa W/Carbidopa (Sinemet) 25 /100 Tab, 1 TAB PO Q8HR for 30 Days, TAB 01/24/25 Information Source: Patient Mode of Arrival: Wheelchair Severity: Moderate Timing: Minutes Prehospital treatment: None Location of laceration: None Mechanism: Fall Associated signs and symtoms: None Past Medical History PAST MEDICAL HISTORY: Alzheimer, CKF, Dementia, ESRD, High Lipids, HTN Surgical History: Unknown Family History Family History: Reviewed,noncontributory to illness, No family hx of DM, No family hx of Heart magy, No family hx of HTN, No family hx ofKidney magy, No family hx of Liver magy, No family hx of Lung magy, No family hx of Stroke, Family hx of Cancer Social History Smoker: Non-Smoker Alcohol: Denies ETOH Use Drugs: Denies Drug Use Lives In: Home Constitutional: denies: chills, diaphoresis, fatigue, fever, malaise, sweats, weakness, others EENTM: denies: blurred vision, double vision, ear bleeding, ear discharge, ear drainage, ear pain, ear ringing, eye pain, eye redness, hearing loss, mouth pain, mouth swelling, nasal discharge, nose bleeding, nose congestion, nose pain, photophobia, tearing, throat pain, throat swelling, voice changes, others Respiratory: denies: cough, hemoptysis, orthopnea, SOB at rest, shortness of breath, SOB with excertion, stridor, wheezing, others Cardiovascular: denies: chest pain, dizzy spells, diaphoresis, Dyspnea on exertion, edema, irregular heart beat, left arm pain, lightheadedness, palpita tions, PND, syncope, others Gastrointestinal: denies: abdomen distended, abdominal pain, blood streaked dyan wels, constipated, diarrhea, dysphagia, difficulty swallowing, hematemesis, melena, nausea, poor appetite, poor fluid intake, rectal bleeding, rectal pain, vomiting, others Genitourinary: denies: burning, dysuria, flank pain, frequency, hematuria, incontinence, penile discharge, penile sore, pain, testicle pain, testicle swelling, urgency, others Neurological: denies: dizziness, fainting, headache, left sided numbness, left sided weakness, numbness, paresthesia, pre-existing deficit, right sided numbness, right sided weakness, seizure, speech problems, tingling, tremors, weakness, others Musculoskeletal: denies: back pain, gout, joint pain, joint swelling, muscle pain, muscle stiffness, neck pain, others Integumetry: denies: bruises, change in color, change in hair/nails, dryness, laceration, lesions, lumps, rash, wounds, others Allergic/Immunocompromised: denies: Difficulty Healing, Frequent Infections, Hives, Itching, others Hematologic/Lymphatic: denies: anemia, blood clots, easy bleeding, easy bruisin g, swollen glands, others Endocrine: denies: excessive hunger, excessive sweating, excessive thirst, excessive urination, flushing, intolerance to cold, intolerance to heat, unexplained weight gain, unexplained weight loss, others Psychiatric: denies: anxiety, bipolar disorder, depression, hopeless, panic disorder, schizophrenia, sleepless, suicidal, others All Other Systems: Reviewed and Negative Physical Exam General Appearance: No Apparent Distress, Normal HEENT: Normal ENT Inspection, Pharynx Normal Neck: Full Range of Motion, Non-Tender, Normal, Normal Inspection Respiratory: Chest Non-Tender, Lungs Clear, No Accessory Muscle Use, No Respiratory Distress, Normal Breath Sounds Cardiovascular: No Edema, No Murmur, No Gallop, Normal Peripheral Pulses, Regular Rate/Rhythm Breast Exam: Deferred Gastrointestinal: No Organomegaly, Non Tender, No Pulsatile Mass, Normal Bowel Sounds, Soft Genitalia: Deferred Pelvic: Deferred Rectal: Deferred Extremities: No calf tenderness, Normal capillary refill, Normal inspection, Normal range of motion, Non-tender, No pedal edema Musculoskeletal : Apperance: Normal Neurologic: Alert, acid bath mixer II-XII nml as Tested, No Motor Deficits, Normal Affect, Normal Mood, No Sensory Deficits Cerebellar Function: Normal Reflexes: Normal Skin: Dry, Normal Color, Warm Lymphatic: No Adenopathy Was a procedure done? Was a procedure done?: No Differential Diagnosis Multiple Trauma: Contusion, Encephalopathy X-Ray, Labs, Meds, VS Vital Signs Date Time Temp Pulse Resp B/P (MAP) Pulse Ox O2 Delivery O2 Flow Rate FiO2 01/30/25 16:47 63 01/30/25 16:41 98.1 84 18 137/82 93 98.1 Lab Test 01/30/25 18:01 Range/Units White Blood Count 7.8 4.4-10.8 10^3/uL Red Blood Count 3.31 L 4.5-5.90 10^6/uL Hemoglobin 10.6 L 13.5-17.5 g/dL Hematocrit 31.8 L 41.0-53.0 % Mean Corpuscular Volume 96.1 80.0-100.0 fL Mean Corpuscular Hemoglobin 32.0 28.0-32.0 pg Mean Corpuscular Hemoglobin Concent 33.3 32.0-36.0 g/dL Red Cell Distribution Width 13.6 11.8-14.3 % Platelet Count 178 140-450 10^3/uL Mean Platelet Volume 8.4 6.9-10.8 fL Neutrophils (%) (Auto) 59.9 37.0-80.0 % Lymphocytes (%) (Auto) 22.2 10.0-50.0 % Monocytes (%) (Auto) 7.9 0.0-12.0 % Eosinophils (%) (Auto) 9.1 H 0.0-7.0 % Basophils (%) (Auto) 0.9 0.0-2.0 % Neutrophils # (Auto) 4.7 1.6-8.6 10 ^3/uL Lymphocytes # (Auto) 1.7 0.4-5.4 10 ^3/uL Monocytes # (Auto) 0.6 0-1.3 10 ^3/uL Eosinophils # (Auto) 0.7 0-0.8 10 ^3/uL Basophils # (Auto) 0.1 0-0.2 10 ^3/uL Nucleated Red Blood Cells 0.0 % Sodium Level 139 136-145 mmol/L Potassium Level 4.0 3.5-5.1 mmol/L Chloride Level 101 98-107 mmol/L Carbon Dioxide Level 25 20-31 mmol/L Anion Gap 13 5-15 Blood Urea Nitrogen 71 #H 9-23 mg/dL Creatinine 6.22 H 0.700-1.30 mg/dL Glomerular Filtration Rate Calc 8 >90 mL/min BUN/Creatinine Ratio 11.4 10.0-20.0 Serum Glucose 126 H 74-106 mg/dL Lactic Acid Level 1.4 0.4-2.0 mmol/L Calcium Level 8.3 L 8.7-10.4 mg/dL Total Bilirubin 0.2 0.2-1.0 mg/dL Aspartate Amino Transferase (AST) 15 13-40 U/L Alanine Aminotransferase (ALT) < 9 7-40 U/L Alkaline Phosphatase 137 H 46-116 U/L Total Protein 5.9 5.7-8.2 g/dL Albumin 3.7 3.2-4.8 g/dL X-Ray, Labs, Meds, VS Comment Patient will be admitted for end-stage renal disease Recommend dialysis consult Patient states he has missed at least 1-2 dialysis appointments He is unsure why he has missed some, he states that he detention facility Patient is hemodynamically stable Time of 1ST Reevaluation: 17:55 Reevaluation 1ST: Unchanged Patient Education/Counseling: Diagnosis, Treatment Family Education/Counseling: No Family Present Departure 1 Departure Time of Disposition: 19:48 Impression: Primary Impression: ESRD (end stage renal disease) Additional Impressions: Generalized weakness Dehydration Parkinsonism Qualified Codes: G20.A1 - Parkinson's disease without dyskinesia, without mention of fluctuations Disposition: ADMITTED INPATIENT Condition: Stable Critical Care Note Critical Care Time?: No Stability Stability form required: No Heart Score Heart Score: Heart Score Response (Comments) Value History N/A 0 EKG N/A 0 Age N/A 0 Risk Factors N/A 0 Troponin N/A 0 Total 0 I personally scribed for SCOTT KINNEYER E PROFESSIONAL CASTER ([place]) on 01/30/25 at 17:44. Electronically submitted by Candida Parker ([employer]). I personally scribed for SHAQ KINNEYOPHER E PROFESSIONAL CASTER ([place]) on 01/30/25 at 18:05. Electronically submitted by Candida Parker ([employer]). I personally scribed for KINNEYSHAQOPHER E PROFESSIONAL CASTER ([place]) on 01/30/25 at 18:10. Electronically submitted by Candida Parker ([employer]). SHAQ KINNEYOPHER E PROFESSIONAL CASTER Jan 30, 2025 17:44
[2025-01-30 18:16] LABS: Hematocrit 31.8 % (41.0-53.0); Hemoglobin 10.6 g/dL (13.5-17.5); Mean Corpuscular Hemoglobin 32.0 pg (28.0-32.0); Mean Corpuscular Volume 96.1 fL (80.0-100.0); Nucleated Red Blood Cells % 0.0 %
[2025-01-30 18:33] LABS: Carbon Dioxide 25 mmol/L (20-31); Chloride 101 mmol/L (98-107)
[2025-01-30 18:34] LABS: Albumin 3.7 g/dL (3.2-4.8); Anion Gap 13 (5-15); BUN/Creatinine Ratio 11.4 (10.0-20.0); Potassium 4.0 mmol/L (3.5-5.1); Sodium 139 mmol/L (136-145); Total Protein 5.9 g/dL (5.7-8.2)
[2025-01-30 18:47] LABS: Alanine Aminotransferase < 9 U/L (7-40); Alkaline Phosphatase 137 U/L (46-116); Bilirubin, Total 0.2 mg/dL (0.2-1.0); Blood Urea Nitrogen 71 mg/dL (9-23); Calcium 8.3 mg/dL (8.7-10.4); Glucose 126 mg/dL (74-106)
[2025-01-30] MEDS ORDERED: MORPHINE SULFATE INJ 2 MG/ml SYRG IV PRN (22:00)
[2025-01-30] MEDS ORDERED: HYDROcodone-ACET 5/325MG TAB PO PRN (22:00)
[2025-01-30] MEDS: SODIUM CHLORIDE 0.9% 500 ML IV ONE (22:00)
--- NOTE | 2025-01-30 23:06 | DVH ---
CLINICAL INDICATION: trauma to the knee after a fall TECHNIQUE: XY L KNEE 2V XRAY Comparison: None FINDINGS/IMPRESSION: There is no evidence of acute fracture or dislocation. Status post knee arthroplasty. No evidence of hardware complication. Soft tissues are unremarkable.
--- NOTE | 2025-01-30 23:59 | DVHHPRES ---
History of Present Illness Resident Creating Document: CECE KUO RESIDENT History of Present Illness Josefina Watkins is an 85 year-old male, with a past medical history of Dementia, HTN, pacemaker, CKD stage 5 (Dialysis TTS), parkinson's disease and bilateral knee replacement. The patient presented to the ED with a chief complaint of approximate 4 hours of the start of left knee pain after a mechanical fall from standing height, he reports he felt in the bathroom hitting his left knee on the floor, presenting continues pain, 8/10, with difficulty to standing, walk and pain on passive movements. The patient denies trauma in other part of his body, bleeding, loss of consciousness or other symptoms. The patient will be admitted for further evaluation, pain control and management. Cardiovascular: HTN, Other (pacemaker ) MEDICAL COLLECTIONS: Other (Parkinson disease.) Renal/: Chronic renal failure, Other (ESRD Stage 5. On dialysis TTS.) Past Surgical History: Total knee replacement (Bilateral ) Family History: CAD, DM, Hypertension Smoke: Quit ( Smoking 3 pack per day, he quit > 10 years ago) Occupation: Retired ALCOHOL: none Drugs: None Lives: Other (Caregiver) Review of Systems Constitutional: No: Fever, Chills, Sweats, Weakness, Malaise, Other Eyes: No: Pain, Vision change, Conjunctivae inflammation, Eyelid inflammation, Other, Redness ENT: No: Ear pain, Ear discharge, Nose pain, Nose discharge, Nose congestion, Mouth pain, Mouth swelling, Throat pain, Throat swelling, Other Respiratory: No: Cough, Dry, Shortness of breath, SOB with excertion, Wheezing, Hemoptysis, Pleuritic Pain, Sputum, Wheezing, Other Cardiovascular: No: Chest Pain, Palpitations, Orthopnea, Paroxysmal Noc. Dyspnea, Edema, Lt Headedness, Other Gastrointestinal: No: Nausea, Vomiting, Abdominal Pain, Diarrhea, Constipation, Melena, Hematochezia, Other Genitourinary: No Dysuria, No Frequency, No Incontinence, No Hematuria, No Retention, No Other Musculoskeletal: other (Left knee pain) Skin: No: Rash, Lesions, Jaundice, Bruising, Other Neurological: No: Weakness, Numbness, Incoordination, Change in speech, Confusion, Seizures, Other Allergies: Coded Allergies: NO KNOWN ALLERGIES (Unverified , 01/17/25) Medications Current Medications Medications Dose Ordered Sig/Zeke Route Start Time Stop Time Status Last Admin Dose Admin Acetaminophen/ Hydrocodone Bitart 1 tab Q4HP PRN PO 01/30/25 22:00 Morphine Sulfate 2 mg Q4HPRN PRN IV 01/30/25 22:00 Enoxaparin Sodium 30 mg DAILY SC 01/31/25 10:00 Pantoprazole Sodium 40 mg DAILY PO 01/31/25 10:00 Exam Vital Signs Vital Signs Date Time Temp Pulse Resp B/P (MAP) Pulse Ox O2 Delivery O2 Flow Rate FiO2 01/30/25 16:47 63 01/30/25 16:41 98.1 18 137/82 93 98.1 General Appearance: Alert, Oriented X3, Cooperative, mild distress HEENT: Atraumatic, Mucous membr. moist/pink Respiratory: Clear to auscultation, Normal air movement Cardiovascular: Regular rate, Normal S1, Normal S2, No murmurs Abdominal: Normal bowel sounds, Soft, No tenderness, No hepatospenomegaly Extremities: No clubbing, No cyanosis, No edema, Normal pulses, No tenderness/swelling, Other (Left knee with pain on passive movements, drawer sign negative, Boland test negative. ) Skin: No rashes, No breakdown, No significant lesion Neuro: Normal speech, Strength at 5/5 X4 ext, Normal tone, Sensation intact, Other (Dificult to standing and walk ) Psych/Mental Status: Mental status NL, Mood NL Labs/Xrays Labs Test 01/30/25 22:18 01/30/25 18:01 Range/Units Ammonia < 10 L 11-32 umol/L Thyroid Stimulating Hormone (TSH) 9.26 H 0.55-4.78 uIU/mL White Blood Count 7.8 4.4-10.8 10^3/uL Red Blood Count 3.31 L 4.5-5.90 10^6/uL Hemoglobin 10.6 L 13.5-17.5 g/dL Hematocrit 31.8 L 41.0-53.0 % Mean Corpuscular Volume 96.1 80.0-100.0 fL Mean Corpuscular Hemoglobin 32.0 28.0-32.0 pg Mean Corpuscular Hemoglobin Concent 33.3 32.0-36.0 g/dL Red Cell Distribution Width 13.6 11.8-14.3 % Platelet Count 178 140-450 10^3/uL Mean Platelet Volume 8.4 6.9-10.8 fL Neutrophils (%) (Auto) 59.9 37.0-80.0 % Lymphocytes (%) (Auto) 22.2 10.0-50.0 % Monocytes (%) (Auto) 7.9 0.0-12.0 % Eosinophils (%) (Auto) 9.1 H 0.0-7.0 % Basophils (%) (Auto) 0.9 0.0-2.0 % Neutrophils # (Auto) 4.7 1.6-8.6 10 ^3/uL Lymphocytes # (Auto) 1.7 0.4-5.4 10 ^3/uL Monocytes # (Auto) 0.6 0-1.3 10 ^3/uL Eosinophils # (Auto) 0.7 0-0.8 10 ^3/uL Basophils # (Auto) 0.1 0-0.2 10 ^3/uL Nucleated Red Blood Cells 0.0 % Sodium Level 139 136-145 mmol/L Potassium Level 4.0 3.5-5.1 mmol/L Chloride Level 101 98-107 mmol/L Carbon Dioxide Level 25 20-31 mmol/L Anion Gap 13 5-15 Blood Urea Nitrogen 71 #H 9-23 mg/dL Creatinine 6.22 H 0.700-1.30 mg/dL Glomerular Filtration Rate Calc 8 >90 mL/min BUN/Creatinine Ratio 11.4 10.0-20.0 Serum Glucose 126 H 74-106 mg/dL Lactic Acid Level 1.4 0.4-2.0 mmol/L Calcium Level 8.3 L 8.7-10.4 mg/dL Total Bilirubin 0.2 0.2-1.0 mg/dL Aspartate Amino Transferase (AST) 15 13-40 U/L Alanine Aminotransferase (ALT) < 9 7-40 U/L Alkaline Phosphatase 137 H 46-116 U/L Total Protein 5.9 5.7-8.2 g/dL Albumin 3.7 3.2-4.8 g/dL SEPSIS Sepsis Screen Date sepsis recognized/suspect: Jan 30, 2025 Time Sepsis recognized/suspect: 1640 Recent Procedure: No On Antibiotic Therapy: No Respiratory Rate >20: No Heart Rate >90: No Temp<36 C (96.8 F) or >38.3 C: No SBP <90 or MAP <65 mmHG: No New Acute Mental Status Change: No Is the patient on CPAP, BIPAP,: No Physician Orders Electrocardigram (01/30/25 17:00) Urinalysis (01/30/25 17:32) Admit (01/30/25 21:57) Code Status (01/30/25 21:57) Vital Signs .PER UNIT PROTOCOL (01/30/25:57) Review Orders With Adm.Md (01/30/25:57) Bedside Commode (01/30/25 21:57) Notify Md Of Changes From Base (01/30/25 21:57) Advance Directive (01/30/25 21:57) Basic Metabolic Panel (01/31/25 04:00) Urinalysis (01/30/25:57) Complete Blood Count (01/31/25 04:00) Patient Condition (01/30/25 21:57) Allergies (01/30/25 21:57) Hydrocodone-Acet 5/325mg Tab ([place] 32 (01/30/25 22:00) Drug Screen (01/30/25 21:57) Morphine Sulfate Injection (01/30/25 22:00) Enoxaparin Sodium (Lovenox) (01/31/25 10:00) Notify Md Of Changes From Base (01/30/25 21:57) Oxygen By Nasal Cannula (01/30/25 21:57) Covid19 Antigen Holly (01/30/25 ) Rapid Influenza A&B (01/30/25 21:57) Pantoprazole Tablet (Protonix Tablet) (01/31/25 10:00) Renal Standard(2gna,3gk,Lopho) (01/31/25 Breakfast) L Knee 2v Xray (01/30/25 21:57) Vital Signs Date Time Temp Pulse Resp B/P (MAP) Pulse Ox O2 Delivery O2 Flow Rate FiO2 01/30/25 16:47 63 01/30/25 16:41 98.1 84 18 137/82 93 98.1 Laboratory Tests Test 01/30/25 18:01 Lactic Acid Level 1.4 mmol/L (0.4-2.0) White Blood Count 7.8 10^3/uL (4.4-10.8) Medications Medications Dose Ordered Sig/Zeke Route Start Time Stop Time Status Last Admin Dose Admin Sodium Chloride 500 ml @ 500 mls/hr Q1H ONCE IV 01/30/25 22:00 01/30/25 22:59 DC 01/30/25 22:00 500 MLS/HR Assessment/Plan Assessment/Plan #Mechanical fall from standing height #Left Knee trauma Morphine 2mg IV Left knee Xray IV fluids 500 cc bolus #ESRD on dialysis Still has urine output: missed dialysis x1 on TTS schedule with Dr. Young's group Dialysis on #Mild to moderate hypothermia IV fluids (careful water replenishment due to ESRD) HD with HD tunneled catheter, patient has right arm fistula recently operated within past month #Essential Hypertension Target BP 140/90 as per ACC/AHA guidelines, hold meds as HD pending. #Parkinsonism Signs and symptoms present with tremor and rigidity confused and aspiration prone, Restart home medications post dialysis. #Constipation as needed laxatives #History of Vitamin D deficiency #Hypothyroidism start home meds when possible #BPH Restart home meds when tolerating oral diet more awake #Dyslipidemia Continue statins #History of Osteoarthritis As needed local lidocaine #Possible sleep apnea Intermittent desaturation #Neck mass status post radiation at [place], limited history Right neck and lower back pain, mild lower back tenderness no signs of neck rigidity, continue home pain medications #Chronic low back pain #Grade 1 obesity 33.3 BMI Life style changes counselling. Renal diet DVT prophylaxis- lovenox PUD prophylaxis Protonics. Goals of care discussed with the patient > 35 min. Discussed plan of care with Dr. Londono Code status: Full code PCP: patient does not recall name. Plan discussed with: Patient, the patient agrees with the admission plan. Plan discussed with: Patient My Orders Orders - CECE KUO RESIDENT Procedure Category Date Status Time Admit ADMIT 01/30/25 Transmitted 21:57 Code Status CODE 01/30/25 Transmitted 21:57 Vital Signs ROSIE 01/30/25 In Process 21:57 Review Orders With ROSIE 01/30/25 In Process Adm. 21:57 Bedside Commode ROSIE 01/30/25 In Process 21:57 Notify Of Changes ROSIE 01/30/25 In Process From Base 21:57 Advance Directive ROSIE 01/30/25 In Process 21:57 Basic Metabolic Panel LAB 01/31/25 Verified 04:00 Urinalysis LAB 01/30/25 Logged 21:57 Complete Blood Count LAB 01/31/25 Verified 04:00 Patient Condition ORDERS 01/30/25 Transmitted 21:57 Allergies ROSIE 01/30/25 In Process 21:57 Hydrocodone-Acet PHA 01/30/25 In Process 5/325mg Tab ([place] 22:00 Drug Screen LAB 01/30/25 Logged 21:57 Morphine Sulfate PHA 01/30/25 In Process Injection 22:00 Enoxaparin Sodium PHA 01/31/25 In Process (Lovenox) 10:00 Notify Of Changes ROSIE 01/30/25 In Process From Base 21:57 Oxygen By Nasal RT 01/30/25 Transmitted Cannula 21:57 Covid19 Antigen [place] LAB 01/30/25 Logged Rapid Influenza A&B LAB 01/30/25 Logged 21:57 Pantoprazole Tablet PHA 01/31/25 In Process (Protonix Tablet) 10:00 Renal DIET 01/31/25 Transmitted Standard(2gna,3gk,Lopho) Breakfast L Knee 2v Xray XY 01/30/25 Resulted 21:57 Date of Service: Jan 30, 2025 Billing Provider: EDWARD LONDONO MD Common Visit Codes: 48887-[id number] INP/OBS CARE (HIGH) Secondary Visit Codes: 64208-[id number] CARE PLAN 30 MINUTES CECE KUO RESIDENT Jan 30, 2025 23:59
[2025-01-31] VITALS (8 sets, daily range): BP systolic 118–149; BP diastolic 62–97; PULSE 60–71; RESP 18–22; TEMP 97.9–98.6; O2SAT 92–98
[2025-01-31 01:04] LABS: COVID19 ANTIGEN SOFIA FIA NEGATIVE (NEGATIVE)
[2025-01-31] MEDS ORDERED: hydrALAZINE HCL 20 MG/ML VL IV ONE (01:15)
[2025-01-31] MEDS ORDERED: DONEPEZIL HYDROCHLORIDE 5 MG TAB PO ONE (01:30)
[2025-01-31] MEDS: CARBIDOPA W LEVODOPA 25/100mg TABLET PO SCH (05:36)
[2025-01-31 06:33] LABS: Hematocrit 32.2 % (41.0-53.0); Hemoglobin 11.1 g/dL (13.5-17.5); Mean Corpuscular Hemoglobin 33.0 pg (28.0-32.0); Mean Corpuscular Volume 96.2 fL (80.0-100.0); Nucleated Red Blood Cells % 0.1 %
[2025-01-31 06:53] LABS: Anion Gap 12 (5-15); Carbon Dioxide 26 mmol/L (20-31); Chloride 101 mmol/L (98-107); Potassium 3.8 mmol/L (3.5-5.1); Sodium 139 mmol/L (136-145)
[2025-01-31 06:58] LABS: Calcium 8.4 mg/dL (8.7-10.4)
[2025-01-31 06:59] LABS: BUN/Creatinine Ratio 10.1 (10.0-20.0)
[2025-01-31 07:01] LABS: Blood Urea Nitrogen 66 mg/dL (9-23); Glucose 112 mg/dL (74-106)
[2025-01-31] MEDS ORDERED: ENOXAPARIN SOD 30 MG/0.3 ML SYRINGE SC SCH (10:00)
[2025-01-31] MEDS: METOPROLOL TARTRATE 50 MG TAB PO SCH (11:18)
[2025-01-31] MEDS: HEPARIN SODIUM (PORCINE) 5000 UNITS/ML 1ML VIAL SC SCH (11:19)
[2025-01-31] MEDS: ATORVASTATIN 20 MG TAB PO SCH (11:19)
[2025-01-31] MEDS: PANTOPRAZOLE 40 MG TAB PO SCH (11:20)
[2025-01-31] MEDS: LEVOTHYROXINE SODIUM 100 MCG TAB PO SCH (11:20)
--- NOTE | 2025-01-31 14:28 | DVHPNRES ---
Progress Note Date Seen: Jan 31, 2025 Resident Creating Document: DILCIA CHA Medical Necessity Reason Pt with a Central, PICC or Fol: No (RN) Subjective Review of Systems This is an 84-year-old male with a history of ESRD on dialysis, CHF, hyperlipidemia, seizure disorder, parkinson disease with tremors, hypertension and dementia came to left knee pain after a mechanical fall. Patient reports he felt in the bathroom hitting this left knee on the floor, presents continues pain, 8/10, with difficult to standing, Patient denies fever, chest pain, abdominal pain or any other complaints. Patient is confused and poor historian due to dementia. Left-sided is facial ulcer was noted. Patient presents severe, intractable tremors in both upper and lower extremities. Patient's sond reports that patient have not had dialysis for past 4 days (on dialysis TTS schedule). Patient currently receiving dialysis without any issues after admission today. 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 Eyes: Right eye prosthesis. No Pain, No Vision change, No Conjunctivae inflammation, No Eyelid inflammation, No Other, No Redness ENT: No Ear pain, No Ear discharge, No Nose pain, No Nose discharge, No Nose congestion, No Mouth pain, No Mouth swelling, No Throat pain, No Throat swelling, No Other Cardiovascular: No Chest Pain, No Palpitations, No Orthopnea, No Paroxysmal No Dyspnea, No Edema, No Lt Headedness, No Other Respiratory: No Cough, No Dry, No Shortness of breath, No SOB with exertion, No Wheezing, No Hemoptysis, No Pleuritic Pain, No Sputum, No Other Gastrointestinal: No Nausea, No Vomiting, No Abdominal Pain, No Diarrhea, No Constipation, No Melena, No Hematochezia, No Other Genitourinary: No Dysuria, No Frequency, No Incontinence, No Hematuria, No Retention, No Other Neurological: Resting tremors; no dizziness, no fainting, no headache, no left sided numbness, no left sided weakness, no numbness, no paresthesia, no pre- existing deficit, no right sided numbness, no right sided weakness, no seizure, no speech problems, no tingling, no weakness, others Musculoskeletal: Joint pain. No other, No neck pain, No shoulder pain, No arm pain, No back pain, No hand pain, No leg pain, No foot pain Skin: No Rash, No Lesions, No Jaundice, No Bruising, No Other Objective vital signs Vital Sign Date Time Temp Pulse Resp B/P (MAP) Pulse Ox O2 Delivery O2 Flow Rate FiO2 01/31/25 13:00 98.4 71 20 149/85 (106) 95 98.4 01/31/25 02:30 Room Air* 2 N/A Nasal Cannula* Total Intake and Output 01/30/25 01/30/25 01/31/25 15:00 23:00 07:00 Intake Total 0 ml Balance 0 ml medications Current Medications Medications Dose Ordered Sig/Zeke Route Start Time Stop Time Status Last Admin Dose Admin Acetaminophen/ Hydrocodone Bitart 1 tab Q4HP PRN PO 01/30/25 22:00 Morphine Sulfate 2 mg Q4HPRN PRN IV 01/30/25 22:00 Pantoprazole Sodium 40 mg DAILY PO 01/31/25 10:00 01/31/25 11:20 40 MG Metoprolol Tartrate 100 mg DAILY PO 01/31/25 10:00 01/31/25 11:18 100 MG Levothyroxine Sodium 100 mcg DAILY PO 01/31/25 10:00 01/31/25 11:20 100 MCG Carbidopa/Levodopa 1 tab TID PO 01/31/25 06:00 01/31/25 05:36 1 TAB Atorvastatin Calcium 20 mg DAILY PO 01/31/25 10:00 01/31/25 11:19 20 MG Heparin Sodium (Porcine) 5,000 units Q12HR SC 01/31/25 10:00 01/31/25 11:19 5,000 UNITS Examination General Appearance: Confused, Cooperative, Mild distress HEENT: Left-sided lower facial ulcer measuring 4-5 cm, Atraumatic, Mucous membranes moist/pink Respiratory: Clear to auscultation, Normal air movement, No added sounds Cardiovascular: Regular rate, Normal S1, Normal S2, No murmurs Abdominal/ : Active bowel sounds, Soft, no distention, no tenderness Extremities: No edema, Normal pulses, No tenderness/swelling Skin: No Significant rash, except past surgical scars Neuro: Normal speech, sensorimotor deficits none Psych/Mental Status: Mental status NL, Mood NL laboratory and microbiology Laboratory Tests 01/31/25 04:01 Test 01/31/25 04:01 Range/Units Serum Glucose 112 H 74-106 mg/dL Microbiology Date/Time Source Procedure Growth Status 01/31/25 03:30 Nose MRSA Screen - Final Complete Labs and/or images reviewed: Labs reviewed by me, Image(s) reviewed by me Problem List/Assessment/Plan Problem List/Assessment/Plan # Mechanical fall from standing height # Left knee trauma - Morphine 2mg IV - IV fluids - Left knee X-Ray: There is no evidence of acute fracture or dislocation. Status post knee arthroplasty. No evidence of hardware complication. Soft tissues are unremarkable. # ESRD on dialysis: -missed dialysis for 4 days (on TTS schedule with Dr. Young's group) -Creatinine 5.80 > 6.11 > 5.1 -consult Nephrology -Dialysis on today(01/31/2025) # History of Parkinson's disease # Myoclonus -Resting tremor -Confusion due to stroke/other neurologic causes -CT head without contrast: No acute intracranial abnormality detected. A right eye prosthesis is noted. -Neurology consult -Primidone 25 mg (0.5 Tablets) # Microcytic microcytic anemia -Hemoglobin 10.1 > 11.1 -Hct 30.5 >34.5 -MCH 32.4 > 32.3 -Monitor labs Diet: Renal GI prophylaxis: Not indicated DVT prophylaxis: Heparin 5,000 bid Goals of care: Full code, discussed for >16 minutes on 01/31/25 Plan discussed with patient Plan discussed with Dr. Oneil Plan discussed with: Patient, Other Date of Service: Jan 31, 2025 Billing Provider: FABRICIO ONEIL MD Common Visit Codes: [id number] INP/OBS CARE(HIGH) Secondary Visit Codes: [id number] CARE PLAN 30 MINUTES DILCIA CHA RESIDENT Jan 31, 2025 14:28 FABRICIO ONEIL MD Feb 03, 2025 21:03
--- NOTE | 2025-01-31 16:29 | DVHINCON2 ---
Date of service: Jan 31, 2025 Reason for Consultation esrd History of Present Illness 84 years old male with past medical history of ESRD on dialysis, Congestive heart failure, dyslipidemia, Parkinson's disease, seizures, hypertension, diabetes, dementia presented with chief complaints of fall/missed hd His friends are bedside he denies any other complaints Has multiple admissions recently to hospital Past Medical History As per HPI Allergies: Coded Allergies: NO KNOWN ALLERGIES (Unverified , 01/17/25) Home Meds Active Scripts Azithromycin (Azithromycin) 500 Mg Tab, 500 MG PO DAILY for 5 Days, #5 TAB Prov:CAMILUISCAMIREILLY RESDIENT 01/21/25 Amoxicillin & Pot Clavulanate (AUGMENTIN TABLET) 875 Mg Tb, 875 MG PO BID for 5 Days, #10 TAB Prov:RAJI SERNA RESDIENT 01/21/25 Reported Medications Alprazolam (Alprazolam) 0.5 Mg Tab, 1 TAB PO HS, #30 TAB 01/31/25 Meclizine Hcl (Meclizine Hcl) 25 Mg Tab, 25 MG PO TID PRN for DIZZINESS for 30 Days, MG 01/31/25 Clonidine Hydrochloride (Clonidine Hcl) 0.1 Mg Tab, 0.1 MG PO Q8HPRN PRN for SBP>150 for 30 Days, MG 01/31/25 Sevelamer Carbonate (Renvela) 800 Mg Tab, 800 MG PO TID, TAB 01/31/25 Alendronate Sodium (Alendronate Sodium) 70 Mg Tab, 1 TAB PO QWEEKLY, #4 TAB 3 Refills 01/31/25 Torsemide (Torsemide) 10 Mg Tab, 10 MG PO DAILY, MG 01/31/25 Tamsulosin HCl (Tamsulosin Hydrochloride) 0.4 Mg Cap, 0.4 MG PO DAILY, CAP 01/31/25 Potassium Chloride (POTASSIUM CHLORIDE CR) 10 Meq Tb, 1 TAB PO DAILY, #30 TAB 5 Refills 01/31/25 Metoprolol Tartrate (Metoprolol Tartrate) 100 Mg Tab, 1 TAB PO DAILY EVERY MORNING EXCEPT DIALYSIS DAYS T, TH, SAT 01/27/25 Atorvastatin Calcium (Lipitor) 20 Mg Tab, 1 TAB PO DAILY, #90 TAB 1 Refill 01/25/25 Donepezil Hydrochloride (DONEPEZIL HCL) 5 Mg Tab, 5 MG PO, TAB 01/25/25 Aspirin (Aspirin) 325 Mg Tab, 325 MG PO DAILY for 30 Days, MG 01/25/25 Levothyroxine Sodium (Levothyroxine Sodium) 100 Mcg Cap, 100 MCG PO, CAP 01/25/25 Levodopa W/Carbidopa (Sinemet) 25 /100 Tab, 1 TAB PO Q8HR for 30 Days, TAB 01/24/25 Current Medications Current Medications Medications (Trade) Dose Ordered Sig/Zeke Route PRN Reason Start Time Stop Time Status Last Admin Acetaminophen/ Hydrocodone Bitart ([place] 5/325MG Tab) 1 tab Q4HP PRN PO MODERATE PAIN (4-6 PAIN SCALE) 01/30/25 22:00 Morphine Sulfate 2 mg Q4HPRN PRN IV SEVERE PAIN (7-10 PAIN SCALE) 01/30/25 22:00 Enoxaparin Sodium (Lovenox) 30 mg DAILY SC 01/31/25 10:00 01/31/25 08:23 DC Pantoprazole Sodium (Protonix Tablet) 40 mg DAILY PO 01/31/25 10:00 01/31/25 11:20 Metoprolol Tartrate (Lopressor Tablet) 100 mg DAILY PO 01/31/25 10:00 01/31/25 11:18 Levothyroxine Sodium (Synthroid Tablet) 100 mcg DAILY PO 01/31/25 10:00 01/31/25 11:20 Carbidopa/Levodopa (Sinemet 25/ 100MG) 1 tab TID PO 01/31/25 06:00 01/31/25 05:36 Atorvastatin Calcium (Lipitor) 20 mg DAILY PO 01/31/25 10:00 01/31/25 11:19 Heparin Sodium (Porcine) 5,000 units Q12HR SC 01/31/25 10:00 01/31/25 11:19 Review of Systems As per HPI H&P Exam Vital Signs/I&O Vital Sign Date Time Temp Pulse Resp B/P (MAP) Pulse Ox O2 Delivery O2 Flow Rate FiO2 01/31/25 13:00 98.4 71 20 149/85 (106) 95 98.4 01/31/25 07:30 Nasal Cannula* 2 28 Intake and Output 01/30/25 01/31/25 19:00 07:00 Intake Total 0 ml Balance 0 ml Intake Oral 0 ml Physical Exam General-not in any distress HEENT-normocephalic, positive tremors generalized Respiratory-fair air entry bilateral, no rhonchi, no wheeze [id number] heard, no murmurs appreciated Abdominal-soft, nontender, nondistended Musculoskeletal-no pedal edema, no calf tenderness Genitourinary-deferred Neuro-somewhat reduced memory Psychiatric-not agitated, cooperative, Labs/Diagnostic Data Labs/Diagnostic Data Laboratory Tests Test 01/31/25 04:01 01/31/25 00:00 01/30/25 22:18 01/30/25 18:01 Range/Units White Blood Count 8.9 7.8 4.4-10.8 10^3/uL Red Blood Count 3.35 L 3.31 L 4.5-5.90 10^6/uL Hemoglobin 11.1 L 10.6 L 13.5-17.5 g/dL Hematocrit 32.2 L 31.8 L 41.0-53.0 % Mean Corpuscular Volume 96.2 96.1 80.0-100.0 fL Mean Corpuscular Hemoglobin 33.0 H 32.0 28.0-32.0 pg Mean Corpuscular Hemoglobin Concent 34.3 33.3 32.0-36.0 g/dL Red Cell Distribution Width 13.7 13.6 11.8-14.3 % Platelet Count 167 178 140-450 10^3/uL Mean Platelet Volume 8.5 8.4 6.9-10.8 fL Neutrophils (%) (Auto) 56.6 59.9 37.0-80.0 % Lymphocytes (%) (Auto) 23.5 22.2 10.0-50.0 % Monocytes (%) (Auto) 9.5 7.9 0.0-12.0 % Eosinophils (%) (Auto) 9.5 H 9.1 H 0.0-7.0 % Basophils (%) (Auto) 0.9 0.9 0.0-2.0 % Neutrophils # (Auto) 5.1 4.7 1.6-8.6 10 ^3/uL Lymphocytes # (Auto) 2.1 1.7 0.4-5.4 10 ^3/uL Monocytes # (Auto) 0.8 0.6 0-1.3 10 ^3/uL Eosinophils # (Auto) 0.8 0.7 0-0.8 10 ^3/uL Basophils # (Auto) 0.1 0.1 0-0.2 10 ^3/uL Nucleated Red Blood Cells 0.1 0.0 % Sodium Level 139 139 136-145 mmol/L Potassium Level 3.8 4.0 3.5-5.1 mmol/L Chloride Level 101 101 98-107 mmol/L Carbon Dioxide Level 26 25 20-31 mmol/L Anion Gap 12 13 5-15 Blood Urea Nitrogen 66 H 71 #H 9-23 mg/dL Creatinine 6.51 H 6.22 H 0.700-1.30 mg/dL Glomerular Filtration Rate Calc 8 8 >90 mL/min BUN/Creatinine Ratio 10.1 11.4 10.0-20.0 Serum Glucose 112 H 126 H 74-106 mg/dL Calcium Level 8.4 L 8.3 L 8.7-10.4 mg/dL Influenza Type A Antigen Negative Negative Influenza Type B Antigen Negative Negative SARS-CoV-2 Antigen (Rapid) Negative NEGATIVE Ammonia < 10 L 11-32 umol/L Thyroid Stimulating Hormone (TSH) 9.26 H 0.55-4.78 uIU/mL Lactic Acid Level 1.4 0.4-2.0 mmol/L Total Bilirubin 0.2 0.2-1.0 mg/dL Aspartate Amino Transferase (AST) 15 13-40 U/L Alanine Aminotransferase (ALT) < 9 7-40 U/L Alkaline Phosphatase 137 H 46-116 U/L Total Protein 5.9 5.7-8.2 g/dL Albumin 3.7 3.2-4.8 g/dL Microbiology Date/Time Source Procedure Growth Status 01/31/25 03:30 Nose MRSA Screen - Final Complete Assessment ESRD on dialysis Status post fall Recent admission for excessive tremors Parkinson's disease Recommendations Seen on HD today Resume medications started by Neurology in previous admission for excessive tremors We will follow closely Plan discussed with: Patient EDUARD WILLIAMSON MD Jan 31, 2025 16:29
[2025-01-31] MEDS ORDERED: TORS10TA12 PO (16:39)
[2025-01-31] MEDS ORDERED: SEVE800T8 PO (16:39)
[2025-01-31] MEDS ORDERED: CLON0.1T PO (16:39)
[2025-01-31] MEDS ORDERED: ALEN70TA74 PO (16:39)
[2025-01-31] MEDS ORDERED: POTA-36 PO (16:39)
[2025-01-31] MEDS ORDERED: ALPR0.5T7 PO (16:39)
[2025-01-31] MEDS ORDERED: TAMS1CAP25 PO (16:39)
[2025-01-31] MEDS ORDERED: MECL-90 PO (16:39)
--- NOTE | 2025-01-31 19:31 | ECG ---
[facility] Test Date: 2025-01-30 Test Time: 16:47:25 Pat Name: WILLIAM DIAZ Department: ED Room: 0219 A Gender: M Director Trade: prashanth : 1940 Requested By: EMERGENCY EMERGENCY Order Number: [id number] Reading MD: Petr Brown Measurements Intervals [place] Rate: 63 P: 32 [place]: 217 QRS: -2 QRSD: 91 T: 46 QT: 415 QTc: 425 Interpretive Statements Sinus rhythm Low voltage, precordial leads Anteroseptal infarct, old Baseline wander in lead(s) V4 Electronically Signed On 02-05-2025 22:34:09 PDT by Petr Brown Please click the below link to view image of tracing.
[2025-02-01] VITALS (8 sets, daily range): BP systolic 119–140; BP diastolic 63–75; PULSE 60–68; RESP 16–20; TEMP 97.7–98.7; O2SAT 94–98
[2025-02-01 10:19] LABS: Hematocrit 30.3 % (41.0-53.0); Hemoglobin 10.3 g/dL (13.5-17.5); Mean Corpuscular Hemoglobin 32.4 pg (28.0-32.0); Mean Corpuscular Volume 95.5 fL (80.0-100.0); Nucleated Red Blood Cells % 0.1 %
[2025-02-01 10:28] LABS: Chloride 99 mmol/L (98-107); Potassium 3.7 mmol/L (3.5-5.1)
[2025-02-01 10:29] LABS: Anion Gap 11 (5-15); Carbon Dioxide 26 mmol/L (20-31)
[2025-02-01 10:34] LABS: BUN/Creatinine Ratio 9.1 (10.0-20.0); Glucose 80 mg/dL (74-106)
[2025-02-01 10:45] LABS: Blood Urea Nitrogen 44 mg/dL (9-23); Calcium 8.3 mg/dL (8.7-10.4); Sodium 136 mmol/L (136-145)
[2025-02-01] MEDS: PRIMIDONE 50 MG TAB PO ONE (11:23)
--- NOTE | 2025-02-01 18:06 | DVHPN2 ---
Progress Note Date Seen: Feb 01, 2025 Medical Necessity Reason Pt with a Central, PICC or Fol: No (RN) Subjective Patient reports: No new complaints Objective vital signs Vital Sign Date Time Temp Pulse Resp B/P (MAP) Pulse Ox O2 Delivery O2 Flow Rate FiO2 02/01/25 17:03 98.1 61 16 122/71 (88) 98 98.1 01/31/25 20:00 Nasal Cannula* 2 28 Total Intake and Output 01/31/25 01/31/25 02/01/25 15:00 23:00 07:00 Intake Total 0 ml 940 ml Output Total 350 ml Balance 0 ml 590 ml medications Current Medications Medications Dose Ordered Sig/Zeke Route Start Time Stop Time Status Last Admin Dose Admin Acetaminophen/ Hydrocodone Bitart 1 tab Q4HP PRN PO 01/30/25 22:00 Morphine Sulfate 2 mg Q4HPRN PRN IV 01/30/25 22:00 Pantoprazole Sodium 40 mg DAILY PO 01/31/25 10:00 02/01/25 11:23 40 MG Metoprolol Tartrate 100 mg DAILY PO 01/31/25 10:00 02/01/25 11:23 100 MG Levothyroxine Sodium 100 mcg DAILY PO 01/31/25 10:00 02/01/25 11:22 100 MCG Carbidopa/Levodopa 1 tab TID PO 01/31/25 06:00 02/01/25 14:32 1 TAB Atorvastatin Calcium 20 mg DAILY PO 01/31/25 10:00 02/01/25 11:24 20 MG Heparin Sodium (Porcine) 5,000 units Q12HR SC 01/31/25 10:00 02/01/25 11:24 5,000 UNITS Primidone 25 mg HS PO 02/01/25 22:00 Examination: MSK:Abnormal, NEURO:Abnormal laboratory and microbiology Laboratory Tests 02/01/25 09:08 Test 02/01/25 09:08 Range/Units Serum Glucose 80 74-106 mg/dL Microbiology Date/Time Source Procedure Growth Status 01/31/25 03:30 Nose MRSA Screen - Final Complete Problem List/Assessment/Plan Problem List/Assessment/Plan ESRD on dialysis Status post fall Recent admission for excessive tremors Parkinson's disease Recommendations HD 02/03 if still here Resume medications started by Neurology in previous admission for excessive tremors We will follow closely Plan discussed with: Patient Dietary Evaluation Review Comments: Encourage PO intake to meet at least 75% of his needs consider Emilio BID for wound-healing Expected Outcomes/Goals: gradual wt loss, healed wounds EDUARD WILLIAMSON MD Feb 01, 2025 18:06
[2025-02-01] MEDS: PRIMIDONE 50 MG TAB PO SCH (22:27)
[2025-02-02 01:00] VITALS: BP 149/91; PULSE 60; RESP 19; TEMP 98.2; O2SAT 98
[2025-02-02 05:00] VITALS: BP 146/80; PULSE 60; RESP 19; TEMP 97.6; O2SAT 98
[2025-02-02 08:00] VITALS: PULSE 61; RESP 16
[2025-02-02 08:51] VITALS: BP 145/82; PULSE 61; RESP 16; TEMP 97; O2SAT 91
--- NOTE | 2025-02-02 09:47 | DVHPN2 ---
Progress Note Date Seen: Feb 02, 2025 Medical Necessity Reason Pt with a Central, PICC or Fol: No (RN) Subjective Patient reports: No new complaints Review of Systems: Deferred Objective vital signs Vital Sign Date Time Temp Pulse Resp B/P (MAP) Pulse Ox O2 Delivery O2 Flow Rate FiO2 02/02/25 08:51 97.0 61 16 145/82 (103) 91 97.0 02/02/25 08:00 Nasal Cannula* 2 28 Total Intake and Output 02/01/25 02/01/25 02/02/25 15:00 23:00 07:00 Intake Total 1000 ml 450 ml Output Total 800 ml 200 ml Balance 200 ml 250 ml medications Current Medications Medications Dose Ordered Sig/Zeke Route Start Time Stop Time Status Last Admin Dose Admin Acetaminophen/ Hydrocodone Bitart 1 tab Q4HP PRN PO 01/30/25 22:00 Morphine Sulfate 2 mg Q4HPRN PRN IV 01/30/25 22:00 Pantoprazole Sodium 40 mg DAILY PO 01/31/25 10:00 02/01/25 11:23 40 MG Metoprolol Tartrate 100 mg DAILY PO 01/31/25 10:00 02/01/25 11:23 100 MG Levothyroxine Sodium 100 mcg DAILY PO 01/31/25 10:00 02/01/25 11:22 100 MCG Carbidopa/Levodopa 1 tab TID PO 01/31/25 06:00 02/02/25 06:27 1 TAB Atorvastatin Calcium 20 mg DAILY PO 01/31/25 10:00 02/01/25 11:24 20 MG Heparin Sodium (Porcine) 5,000 units Q12HR SC 01/31/25 10:00 02/01/25 22:29 5,000 UNITS Primidone 25 mg HS PO 02/01/25 22:00 02/01/25 22:27 25 MG Examination: GENERAL:Abnormal, MSK:Abnormal, NEURO:Abnormal laboratory and microbiology Laboratory Tests 02/01/25 09:08 Test 02/01/25 09:08 Range/Units Serum Glucose 80 74-106 mg/dL Microbiology Date/Time Source Procedure Growth Status 01/31/25 03:30 Nose MRSA Screen - Final Complete Problem List/Assessment/Plan Problem List/Assessment/Plan ESRD on dialysis Status post fall Recent admission for excessive tremors Parkinson's disease Recommendations HD 02/03 if still here Resume medications started by Neurology in previous admission for excessive tremors We will follow closely Plan discussed with: Patient Dietary Evaluation Review Comments: Encourage PO intake to meet at least 75% of his needs consider Emilio BID for wound-healing Expected Outcomes/Goals: gradual wt loss, healed wounds EDUARD WILLIAMSON MD Feb 02, 2025 09:47
[2025-02-02 10:11] LABS: Potassium 3.6 mmol/L (3.5-5.1)
[2025-02-02 10:12] LABS: Anion Gap 12 (5-15); Carbon Dioxide 25 mmol/L (20-31)
[2025-02-02 10:15] LABS: Hematocrit 30.0 % (41.0-53.0); Hemoglobin 10.2 g/dL (13.5-17.5); Mean Corpuscular Hemoglobin 32.4 pg (28.0-32.0); Mean Corpuscular Volume 95.5 fL (80.0-100.0); Nucleated Red Blood Cells % 0.1 %
[2025-02-02 10:16] LABS: Calcium 8.4 mg/dL (8.7-10.4); Chloride 97 mmol/L (98-107); Sodium 134 mmol/L (136-145)
[2025-02-02 10:17] LABS: BUN/Creatinine Ratio 9.9 (10.0-20.0)
[2025-02-02 10:23] LABS: Blood Urea Nitrogen 56 mg/dL (9-23); Glucose 156 mg/dL (74-106)
[2025-02-02 12:56] VITALS: BP 138/81; PULSE 64; RESP 17; TEMP 97.8; O2SAT 100
[2025-02-02 13:43] VITALS: BP 138/81; PULSE 64; RESP 16; TEMP 36.6; O2SAT 100
--- NOTE | 2025-02-02 15:37 | DVHDSRES ---
Discharge Summary Date of Admission Resident Creating Document: DILCIA CHA RESIDENT Jan 30, 2025 at 21:57 Date of Discharge: Feb 02, 2025 Admitting Diagnosis left knee pain due to mechanical fall Labs/Diagnostic Data: Laboratory Results Test 02/02/25 09:38 02/02/25 09:30 01/31/25 00:00 01/30/25 22:18 Sodium Level 134 mmol/L (136-145) Potassium Level 3.6 mmol/L (3.5-5.1) Chloride Level 97 mmol/L (98-107) Carbon Dioxide Level 25 mmol/L (20-31) Anion Gap 12 (5-15) Blood Urea Nitrogen 56 mg/dL (9-23) Creatinine 5.66 mg/dL (0.700-1.30) Glomerular Filtration Rate Calc 9 mL/min (>90) BUN/Creatinine Ratio 9.9 (10.0-20.0) Serum Glucose 156 mg/dL (74-106) Calcium Level 8.4 mg/dL (8.7-10.4) White Blood Count 5.8 10^3/uL (4.4-10.8) Red Blood Count 3.14 10^6/uL (4.5-5.90) Hemoglobin 10.2 g/dL (13.5-17.5) Hematocrit 30.0 % (41.0-53.0) Mean Corpuscular Volume 95.5 fL (80.0-100.0) Mean Corpuscular Hemoglobin 32.4 pg (28.0-32.0) Mean Corpuscular Hemoglobin Concent 33.9 g/dL (32.0-36.0) Red Cell Distribution Width 13.8 % (11.8-14.3) Platelet Count 152 10^3/uL (140-450) Mean Platelet Volume 8.8 fL (6.9-10.8) Neutrophils (%) (Auto) 51.2 % (37.0-80.0) Lymphocytes (%) (Auto) 33.2 % (10.0-50.0) Monocytes (%) (Auto) 8.3 % (0.0-12.0) Eosinophils (%) (Auto) 6.5 % (0.0-7.0) Basophils (%) (Auto) 0.8 % (0.0-2.0) Neutrophils # (Auto) 3.0 10 ^3/uL (1.6-8.6) Lymphocytes # (Auto) 1.9 10 ^3/uL (0.4-5.4) Monocytes # (Auto) 0.5 10 ^3/uL (0-1.3) Eosinophils # (Auto) 0.4 10 ^3/uL (0-0.8) Basophils # (Auto) 0 10 ^3/uL (0-0.2) Nucleated Red Blood Cells 0.1 % Influenza Type A Antigen Negative (Negative) Influenza Type B Antigen Negative (Negative) SARS-CoV-2 Antigen (Rapid) Negative (NEGATIVE) Ammonia < 10 umol/L (11-32) Thyroid Stimulating Hormone (TSH) 9.26 uIU/mL (0.55-4.78) Test 01/30/25 18:01 Lactic Acid Level 1.4 mmol/L (0.4-2.0) Total Bilirubin 0.2 mg/dL (0.2-1.0) Aspartate Amino Transferase (AST) 15 U/L (13-40) Alanine Aminotransferase (ALT) < 9 U/L (7-40) Alkaline Phosphatase 137 U/L (46-116) Total Protein 5.9 g/dL (5.7-8.2) Albumin 3.7 g/dL (3.2-4.8) Other Laboratory Tests 02/02/25 09:38 02/02/25 09:30 Brief Hx & Hospital Course: This is an 84-year-old male with a complex medical history including end-stage renal disease (ESRD) on dialysis, congestive heart failure (CHF), hyperlipidemia, seizure disorder, Parkinsons disease with severe tremors, hypertension, dementia, and diabetes mellitus. He presented to the emergency department following a mechanical fall in the bathroom, resulting in left knee pain rated 8/10 and difficulty standing. The patient is a poor historian; history was supplemented by his caregiver and his son. On examination, the patient was alert but oriented only to person. He was noted to have severe resting tremors in both upper and lower extremities for which primidone 25mg was resumed, neck mass s/p irradiation at [facility]. 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 He denied chest pain, abdominal pain, fever, or other systemic complaints. Imaging of the left knee showed no acute fracture or dislocation, with findings consistent with status post knee arthroplasty and no hardware complications. Pain was managed with IV morphine and supportive care. The patient had missed dialysis for four days (TTS schedule) prior to admission. Labs showed elevated creatinine (peak 6.11), and nephrology was consulted. Dialysis was resumed without complications on 01/31/2025. Additional findings included microcytic anemia. Patient was medically stabilized and [facility] for continued rehabilitation and physical therapy. Examination on the day of discharge: General Appearance: Confused, Cooperative, Oriented only to person HEENT: Atraumatic, right eye prosthesis Respiratory: Clear to auscultation, Normal air movement, No added sounds. Right chest hemodialysis catheter with no signs of bleeding/infection Cardiovascular: Regular rate, Normal S1, Normal S2, No murmurs. Pacemaker in place Abdominal/ : Active bowel sounds, Soft, no distention, no tenderness Extremities: No edema, Normal pulses, No tenderness/swelling Skin: No Significant rash, except past surgical scars Neuro: Normal speech, sensorimotor deficits none Psych/Mental Status: Confused Goals of care discussed with the patient's son for 20 minutes; full code Case discussed with Dr. Rodrigues Operations or Procedures PROCEDURE(s): LKNE2 - L KNEE 2V XRAY REASON: trauma to the knee after a fall ORDER NUMBER(s): [id number], ACCESSION NUMBER(s): [id number] CLINICAL INDICATION: trauma to the knee after a fall TECHNIQUE: XY L KNEE 2V XRAY Comparison: None FINDINGS/IMPRESSION: There is no evidence of acute fracture or dislocation. Status post knee arthroplasty. No evidence of hardware complication. Soft tissues are unremarkable. Condition at Discharge: Stable (RN) Final Diagnosis/Problems List # Physical deconditioning resulting in mechanical fall in the setting of generalized weakness # Mechanical fall due to physical deconditioning in the setting of generalized weakness # Left knee trauma # ESRD on dialysis via right chest hemodialysis catheter # History of Parkinson's disease # Myoclonus # Normocytic anemia in the setting of ESRD # Neck mass status post radiation at [facility] # Status post pacemaker # Hypothyroidism # BPH # Obesity Discharge Disposition: [facility] Facility Discharge Instruct/Medications Diet: Renal Activity: Bed rest Follow Up/Referral: Follow up with PCP within 1-2 weeks. Medications: continue home medications as per EMR Scheduled Alendronate Sodium (Alendronate Sodium), 1 TAB PO QWEEKLY, (Reported) Alprazolam (Alprazolam), 1 TAB PO HS, (Reported) Amoxicillin & Pot Clavulanate (Augmentin Tablet), 875 MG PO BID Aspirin (Aspirin), 325 MG PO DAILY, (Reported) Atorvastatin Calcium (Lipitor), 1 TAB PO DAILY, (Reported) Azithromycin (Azithromycin), 500 MG PO DAILY Levodopa W/Carbidopa (Sinemet), 1 TAB PO Q8HR, (Reported) Metoprolol Tartrate (Metoprolol Tartrate), 1 TAB PO DAILY, (Reported) Potassium Chloride (Potassium Chloride Cr), 1 TAB PO DAILY, (Reported) Sevelamer Carbonate (Renvela), 800 MG PO TID, (Reported) Tamsulosin HCl (Tamsulosin Hydrochloride), 0.4 MG PO DAILY, (Reported) Torsemide (Torsemide), 10 MG PO DAILY, (Reported) Scheduled PRN Clonidine Hydrochloride (Clonidine Hcl), 0.1 MG PO Q8HPRN PRN for SBP>150, (Reported) Meclizine Hcl (Meclizine Hcl), 25 MG PO TID PRN for DIZZINESS, (Reported) Miscellaneous Medications Donepezil Hydrochloride (Donepezil Hcl), 5 MG PO, (Reported) Levothyroxine Sodium (Levothyroxine Sodium), 100 MCG PO, (Reported) Discharge Statement: "Patient was advised to return to the ER or call 911 if any headaches, dizziness, shortness of breath, chest pain, abdominal pain, bleeding, fevers, or worsening of medical condition. Patient was counseled about treatment plan, medications, possible side effects, patientverbalized understanding. All questions were answered to the best of my ability. This discharge took greater then 30 minutes in planning, reviewing documentation, counseling the patient, and discussing with other team members." Addendum Addendum Addendum I was physically present for the zimmer portions of the service provided to patient by THE RESIDENT. I have reviewed the documentation, discussed the case with resident and agree with the resident's documentation except as noted. Also the patient's clinical case was discussed with the patient's nurse. This medical document was created using an electronic medical record system with computerized dictation system. Although this document has been carefully reviewed, there might still be some phonetic and typographical errors. These areas are purely typographical due to imperfections of the software programs, and do not reflect any compromise in the patient's medical care. Late signature. Date of Service: Feb 02, 2025 Billing Provider: SHALOM RODRIGUES MD Common Visit Codes: 27461-HYY/OBS DISCH DAY >30min Secondary Visit Codes: [id number] CARE PLAN 30 MINUTES (20 minutes) DILCIA CHA RESIDENT Feb 02, 2025 15:37 SARAH OAKES RESIDENT Feb 02, 2025 21:35 SHALOM RODRIGUES MD Feb 05, 2025 05:46
--- NOTE | 2025-02-02 16:42 | DVHPNRES ---
Progress Note Date Seen: Feb 01, 2025 Medical Necessity Reason Pt with a Central, PICC or Fol: No (RN) Objective vital signs Vital Sign Date Time Temp Pulse Resp B/P (MAP) Pulse Ox O2 Delivery O2 Flow Rate FiO2 02/02/25 13:43 36.6 64 16 100 02/02/25 12:56 138/81 (100) 02/02/25 08:00 Nasal Cannula* 2 28 Total Intake and Output 02/01/25 02/01/25 02/02/25 15:00 23:00 07:00 Intake Total 1000 ml 450 ml Output Total 800 ml 200 ml Balance 200 ml 250 ml laboratory and microbiology Laboratory Tests 02/02/25 09:38 02/02/25 09:30 Test 02/02/25 09:38 Range/Units Serum Glucose 156 H 74-106 mg/dL Microbiology Date/Time Source Procedure Growth Status 01/31/25 03:30 Nose MRSA Screen - Final Complete Problem List/Assessment/Plan Problem List/Assessment/Plan # Mechanical fall from standing height # Left knee trauma - Morphine 2mg IV - IV fluids - Left knee X-Ray: There is no evidence of acute fracture or dislocation. Status post knee arthroplasty. No evidence of hardware complication. Soft tissues are unremarkable. # ESRD on dialysis: -missed dialysis for 4 days (on TTS schedule with Dr. Young's group) -Creatinine 5.80 > 6.11 > 5.1 -consult Nephrology -Dialysis on today(01/31/2025) # History of Parkinson's disease # Myoclonus -Resting tremor -Confusion due to stroke/other neurologic causes -CT head without contrast: No acute intracranial abnormality detected. A right eye prosthesis is noted. -Neurology consult -Primidone 25 mg (0.5 Tablets) # Microcytic microcytic anemia -Hemoglobin 10.1 > 11.1 -Hct 30.5 >34.5 -MCH 32.4 > 32.3 -Monitor labs Diet: Renal GI prophylaxis: Not indicated DVT prophylaxis: Heparin 5,000 bid Goals of care: Full code, discussed for >16 minutes on 01/31/25 Plan discussed with patient Plan discussed with Dr. Oneil My Orders My Orders Orders - DILCIA CHA RESIDENT Procedure Category Date Status Time Discharge DISCHARGE 02/02/25 Transmitted 09:32 Dietary Evaluation Review Comments: Encourage PO intake to meet at least 75% of his needs consider Emilio BID for wound-healing Expected Outcomes/Goals: gradual wt loss, healed wounds DILCIA CHA RESIDENT Feb 02, 2025 16:42
--- NOTE | 2025-02-02 16:50 | DVHPNRES ---
Progress Note Date Seen: Feb 01, 2025 Resident Creating Document: DILCIA CHA Medical Necessity Reason Pt with a Central, PICC or Fol: No (RN) Subjective Review of Systems This is an 84-year-old male with a history of ESRD on dialysis, CHF, hyperlipidemia, seizure disorder, parkinson disease with tremors, hypertension and dementia came to left knee pain after a mechanical fall. Patient reports he felt in the bathroom hitting this left knee on the floor, presents continues pain, 8/10, with difficult to standing, Patient denies fever, chest pain, abdominal pain or any other complaints. Patient is confused and poor historian due to dementia. Left-sided is facial ulcer was noted. Patient presents severe, intractable tremors in both upper and lower extremities. Patient's sond reports that patient have not had dialysis for past 4 days (on dialysis TTS schedule). Patient currently receiving dialysis without any issues after admission today. Objective vital signs Vital Sign Date Time Temp Pulse Resp B/P (MAP) Pulse Ox O2 Delivery O2 Flow Rate FiO2 02/02/25 13:43 36.6 64 16 100 02/02/25 12:56 138/81 (100) 02/02/25 08:00 Nasal Cannula* 2 28 Total Intake and Output 02/01/25 02/01/25 02/02/25 15:00 23:00 07:00 Intake Total 1000 ml 450 ml Output Total 800 ml 200 ml Balance 200 ml 250 ml Examination General Appearance: Confused, Cooperative, Mild distress HEENT: Left-sided lower facial ulcer measuring 4-5 cm, Atraumatic, Mucous membranes moist/pink Respiratory: Clear to auscultation, Normal air movement, No added sounds Cardiovascular: Regular rate, Normal S1, Normal S2, No murmurs Abdominal/ : Active bowel sounds, Soft, no distention, no tenderness Extremities: No edema, Normal pulses, No tenderness/swelling Skin: No Significant rash, except past surgical scars Neuro: Normal speech, sensorimotor deficits none Psych/Mental Status: Mental status NL, Mood NL laboratory and microbiology Laboratory Tests 02/02/25 09:38 02/02/25 09:30 Test 02/02/25 09:38 Range/Units Serum Glucose 156 H 74-106 mg/dL Microbiology Date/Time Source Procedure Growth Status 01/31/25 03:30 Nose MRSA Screen - Final Complete Labs and/or images reviewed: Labs reviewed by me, Image(s) reviewed by me Problem List/Assessment/Plan Problem List/Assessment/Plan # Mechanical fall from standing height # Left knee trauma - Morphine 2mg IV - IV fluids - Left knee X-Ray: There is no evidence of acute fracture or dislocation. Status post knee arthroplasty. No evidence of hardware complication. Soft tissues are unremarkable. # ESRD on dialysis: -missed dialysis for 4 days (on TTS schedule with Dr. Young's group) -Creatinine 5.80 > 6.11 > 5.1 -consult Nephrology -Dialysis on today(01/31/2025) # History of Parkinson's disease # Myoclonus -Resting tremor -Confusion due to stroke/other neurologic causes -CT head without contrast: No acute intracranial abnormality detected. A right eye prosthesis is noted. -Neurology consult -Primidone 25 mg (0.5 Tablets) # Microcytic microcytic anemia -Hemoglobin 10.1 > 11.1 -Hct 30.5 >34.5 -MCH 32.4 > 32.3 -Monitor labs Diet: Renal GI prophylaxis: Not indicated DVT prophylaxis: Heparin 5,000 bid Goals of care: Full code, discussed for >16 minutes on 01/31/25 Plan discussed with patient Plan discussed with Dr. Oneil Plan discussed with: Patient My Orders My Orders Orders - DILCIA CHA Procedure Category Date Status Time Discharge DISCHARGE 02/02/25 Transmitted 09:32 Dietary Evaluation Review Comments: Encourage PO intake to meet at least 75% of his needs consider Emilio BID for wound-healing Expected Outcomes/Goals: gradual wt loss, healed wounds DILCIA CHA Feb 02, 2025 16:50
--- NOTE | 2025-02-02 17:36 | DVHPNRES ---
Progress Note Date Seen: Feb 01, 2025 Resident Creating Document: DILCIA CHA Medical Necessity Reason Pt with a Central, PICC or Fol: No (RN) Subjective Review of Systems This is an 84-year-old male with a history of ESRD on dialysis, CHF, hyperlipidemia, seizure disorder, parkinson disease with tremors, hypertension and dementia came to left knee pain after a mechanical fall. Patient reports he felt in the bathroom hitting this left knee on the floor, presents continues pain, 8/10, with difficult to standing, Patient denies fever, chest pain, abdominal pain or any other complaints. Patient is confused and poor historian due to dementia. Left-sided is facial ulcer was noted. Patient presents severe, intractable tremors in both upper and lower extremities. Patient's son reports that patient have not had dialysis for past 4 days (on dialysis TTS schedule). Patient currently receiving dialysis without any issues after admission today. On presentation, the patient was noted to have intractable resting tremors involving both upper and lower extremities. A left-sided facial ulcer measuring approximately 45 cm was observed. Patient denies left knee pain. Despite his cognitive impairment, the patient was alert and oriented to person, place, and time. Objective vital signs Vital Sign Date Time Temp Pulse Resp B/P (MAP) Pulse Ox O2 Delivery O2 Flow Rate FiO2 02/02/25 13:43 36.6 64 16 100 02/02/25 12:56 138/81 (100) 02/02/25 08:00 Nasal Cannula* 2 28 Total Intake and Output 02/01/25 02/01/25 02/02/25 15:00 23:00 07:00 Intake Total 1000 ml 450 ml Output Total 800 ml 200 ml Balance 200 ml 250 ml Examination General Appearance: Confused, Cooperative, Mild distress HEENT: Left-sided lower facial ulcer measuring 4-5 cm, Atraumatic, Mucous membranes moist/pink Respiratory: Clear to auscultation, Normal air movement, No added sounds Cardiovascular: Regular rate, Normal S1, Normal S2, No murmurs Abdominal/ : Active bowel sounds, Soft, no distention, no tenderness Extremities: No edema, Normal pulses, No tenderness/swelling Skin: No Significant rash, except past surgical scars Neuro: Normal speech, sensorimotor deficits none Psych/Mental Status: Mental status NL, Mood NL laboratory and microbiology Laboratory Tests 02/02/25 09:38 02/02/25 09:30 Test 02/02/25 09:38 Range/Units Serum Glucose 156 H 74-106 mg/dL Microbiology Date/Time Source Procedure Growth Status 01/31/25 03:30 Nose MRSA Screen - Final Complete Labs and/or images reviewed: Labs reviewed by me, Image(s) reviewed by me Problem List/Assessment/Plan Problem List/Assessment/Plan # Mechanical fall from standing height # Left knee trauma - Morphine 2mg IV - IV fluids - Left knee X-Ray: There is no evidence of acute fracture or dislocation. Status post knee arthroplasty. No evidence of hardware complication. Soft tissues are unremarkable. # ESRD on dialysis: -missed dialysis for 4 days (on TTS schedule with Dr. Young's group) -Creatinine 5.80 > 6.11 > 5.1 -consult Nephrology -Dialysis on today(01/31/2025) # History of Parkinson's disease # Myoclonus -Resting tremor -Confusion due to stroke/other neurologic causes -CT head without contrast: No acute intracranial abnormality detected. A right eye prosthesis is noted. -Neurology consult -Primidone 25 mg (0.5 Tablets) # Microcytic microcytic anemia -Hemoglobin 10.1 > 11.1 -Hct 30.5 >34.5 -MCH 32.4 > 32.3 -Monitor labs Diet: Renal GI prophylaxis: Not indicated DVT prophylaxis: Heparin 5,000 bid Goals of care: Full code, discussed for >16 minutes on 02/01/25 Plan discussed with patient Plan discussed with Dr. Oneil Plan discussed with: Other (RN) My Orders My Orders Orders - DILCIA CHA Procedure Category Date Status Time Discharge DISCHARGE 02/02/25 Transmitted 09:32 Dietary Evaluation Review Comments: Encourage PO intake to meet at least 75% of his needs consider Emilio BID for wound-healing Expected Outcomes/Goals: gradual wt loss, healed wounds Date of Service: Feb 01, 2025 Billing Provider: FABRICIO ONEIL MD Common Visit Codes: [id number] INP/OBS CARE(HIGH) DILCIA CHA Feb 02, 2025 17:36 FABRICIO ONEIL MD Feb 03, 2025 21:04
== END 2025-02-02 15:15 | DRG 555 ==
LOC: EDBD 16:33 → ER 16:33 → OVERFLOW 21:57 → CENTRAL 23:54
PROVIDERS: ADMIT Internal Medicine Geriatric Medicine; ATTEND Internal Medicine Geriatric Medicine
PROC: 5A1D70Z Performance of Urinary Filtration, Intermittent, Less than 6 Hours Per Day (ICD-10-PCS; principal; 2025-01-31)
DX: M25.562 Pain in left knee (principal); N18.6 End stage renal disease; I13.2 Hypertensive heart and chronic kidney disease with heart failure and with stage 5 chronic kidney disease, or end stage renal disease; R53.81 Other malaise; E11.22 Type 2 diabetes mellitus with diabetic chronic kidney disease; G20.A1 Parkinson's disease without dyskinesia, without mention of fluctuations; E78.5 Hyperlipidemia, unspecified; N40.0 Benign prostatic hyperplasia without lower urinary tract symptoms; Z20.822 Contact with and (suspected) exposure to COVID-19; E03.9 Hypothyroidism, unspecified; E86.0 Dehydration; F02.80 Dementia in other diseases classified elsewhere, unspecified severity, without behavioral disturbance, psychotic disturbance, mood disturbance, and anxiety; G89.29 Other chronic pain; M54.50 Low back pain, unspecified; E66.9 Obesity, unspecified; Z68.31 Body mass index [BMI] 31.0-31.9, adult; G40.909 Epilepsy, unspecified, not intractable, without status epilepticus; G30.9 Alzheimer's disease, unspecified; Z99.2 Dependence on renal dialysis; I50.9 Heart failure, unspecified; D50.9 Iron deficiency anemia, unspecified; Z96.653 Presence of artificial knee joint, bilateral; Z82.49 Family history of ischemic heart disease and other diseases of the circulatory system; Z83.3 Family history of diabetes mellitus; Z87.891 Personal history of nicotine dependence; Z79.899 Other long term (current) drug therapy; Z79.01 Long term (current) use of anticoagulants; Z79.82 Long term (current) use of aspirin
CPT/HCPCS: 36415; 73560; 80048; 80053; 82140; 83605; 84443; 85025; 87081; 87426; 87804; 90935; 93005; 97110; 97116; 97163; 97530; G0378